=== PATIENT | female | born 1945 | race Caucasian/White ===

== ENCOUNTER → 2016-09-27 | Outpatient (CLI) | payer OTHER, MEDICARE ==
--- NOTE | 2016-09-27 18:04 | MA ---
Screening Digital Mammogram with Digital Breast Tomosynthesis Clinical Indications: Routine screening. Mother and daughter with history breast cancer. Technique: Standard cephalocaudal projections are obtained. Digital breast tomosynthesis was perform ed in the MLO projection with reconstruction at 1.0 mm slice thickness and composite MLO views recons tructed. This examination is processed by the CAD computer aided detection system. Comparison: July 31, 2015;. Breast density: B; There are scattered areas of fibroglandular density. Findings: CAD was reviewed. Within the upper outer right breast, there is a possible decreasing nodul e versus overlapping breast parenchymal tissue. No additional masses are seen within either breast. T here are no significant clusters of microcalcifications. The axilla are clear. Impression: Possible increasing nodule versus overlapping breast parenchymal tissue upper outer right breast. Recommendation: Ultrasound is recommended upper outer right breast for further characterization. Additional imaging evaluation on the right is needed. BI-RADS 0. [facility] will send a result letter to the patient. Negative mammography should not preclude additional workup of a clinically suspicious finding. The patient's information is entered into a reminder system with a target due date for her next mammo gram.
== END ==
LOC: FIMAGING 14:36
DX: Z12.31 Encounter for screening mammogram for malignant neoplasm of breast (principal); Z80.3 Family history of malignant neoplasm of breast
CPT/HCPCS: G0202

== ENCOUNTER → 2016-10-04 | Outpatient (CLI) | payer OTHER, MEDICARE ==
--- NOTE | 2016-10-04 15:08 | US ---
Right Breast Ultrasound History: Small nodule upper outer right breast comparison: Screening mammogram September 27, 2016 Technique: Ultrasound exam with a high frequency linear transducer. Findings: At the 10:00 radial, 5 cm from the nipple is a 3 mm simple cyst that correlates to size sha pe and position to the mammographic nodule. Impression: Benign simple cyst. Recommendation: Return to screening mammography of both breasts in 1 year. Results and recommendation were communicated to the patient at the time of the examination. BI-RADS 2. Benign.
== END ==
LOC: FIMAGING 13:50
PROVIDERS: ATTEND Internal Medicine
DX: N60.01 Solitary cyst of right breast (principal)

== ENCOUNTER → 2017-08-05 | Outpatient (CLI) | payer OTHER, MEDICARE | LOC: FIMAGING 13:17 | PROVIDERS: ATTEND Nurse Practitioner Adult Health | DX: Z13.820 Encounter for screening for osteoporosis (principal); M81.0 Age-related osteoporosis without current pathological fracture ==

== ENCOUNTER 2018-02-02 10:23 | Inpatient (IN) | payer OTHER, MEDICARE ==
[2018-02-02] MEDS ORDERED: METOCLOPRAMIDE 10 MG/2 ML VIAL IVP ONE (10:29)
[2018-02-02] MEDS ORDERED: METOCLOPRAMIDE 10 MG/2 ML VIAL ONE (10:30)
--- NOTE | 2018-02-02 10:30 | EDPHY ---
H & P Time Seen by Provider: 02/02/18 10:23 HPI/ROS: CHIEF COMPLAINT: Syncope HISTORY OF PRESENT ILLNESS: Patient found by bystanders unresponsive in the garden, she does not remember what happened. It appears that she probably fainted and has a laceration on the back of her head. Brought in by EMS with and the patient keeps asking what happened and where she is. Currently she has some pain in the back of her head otherwise no medical complaints. Denies chest pain or shortness of breath or weakness or numbness in extremities. REVIEW OF SYSTEMS: Eye: no change in vision ENT: no sore throat Cardiac: Denies chest pain Pulmonary: no cough or SOB Abdomen: no vomiting, diarrhea, abdominal pain Musculoskeletal: no back pain Skin: Occipital scalp laceration Neuro: Posterior headache Constitutional: no fever : no urinary symptoms A comprehensive 10 point review of systems is otherwise negative aside from elements mentioned in the history of present illness. PAST MEDICAL HISTORY: Osteoporosis Social history: here after arrival, PCP is Volodymyr Collazo General Appearance: Alert and conversant, cooperative. Eyes: No scleral icterus. Pupils reactive and extraocular motion intact. ENT, Mouth: Normal mucous membranes. Respiratory: Normal respiratory effort, breath sounds equal, lungs are clear to auscultation. Cardiovascular: Regular rate and rhythm. Gastrointestinal: Abdomen is soft and non tender. Neurological: Alert, face symmetric, normal motor and sensory in extremities. Patient is able to move all 4 extremities. She is appropriately responding to questions but seems a little bit more sleepy than normal. Skin: 2 cm occipital scalp laceration. Musculoskeletal: No midline spinal tenderness. Psychiatric: Not agitated. Emergency Department course/MDM: EKG, Reglan 10 mg IV, CT head and cervical spine, wound care. Labs to include troponin and electrolytes. 1044: Lillie for neurosurgery. Reviewed head CT with the on the computer system. He says that neurosurgery will come to see the patient in the ER. 1225: Dr. Whelan in the emergency department with Elvin Padilla. At this time the patient had a grand mal seizure, 1 mg IV Ativan and 1 g IV Keppra given. She was assisted with ventilation briefly but did not require intubation. Constitutional: Initial Vital Signs Heart Rate 52 L 02/02/18 10:23 Respiratory Rate 14 02/02/18 10:23 Blood Pressure 132/73 H 02/02/18 10:23 O2 Sat (%) 100 02/02/18 10:23 O2 Delivery Mode Nasal Cannula O2 (L/minute) 2 Allergies/Adverse Reactions: Sulfa (Sulfonamide Antibiotics) Allergy (Verified 02/02/18 10:46) Home Medications: Medication Instructions Recorded NK [No Known Home Meds] 02/02/18 Medical Decision Making - Diagnostics EKG Interpretation: 12-lead EKG interpreted by me; official reading is in trace master. My interpretation is sinus rhythm with left atrial abnormality, QT 44, nonspecific lateral T-wave flattening. Imaging Results: Imaging Impressions Cervical Spine CT 02/02/18 10:28 Impression: 1. No acute cervical spine fracture or soft tissue swelling. 2. Right occipital skull fracture. 3. If the patient has persistent pain or neurologic deficits, consider cervical spine MRI. Findings discussed with Emergency Department physician, Duarte Rosenberg, on 02/02/2018 at 10:[address] 02/02/18 10:28 Impression: 1. Nondisplaced right occipital fracture. 2. Thin subdural hematoma along the left frontal convexity, interhemispheric falx, and bilateral cerebellar tentorium. 3. Hemorrhagic contusions, right cerebellar hemisphere and left frontal lobe. 4. Minimal subarachnoid hemorrhage along the high left parietal convexity and in the basilar spaces. Findings discussed with Emergency Department physician, Duarte Rosenberg, on 02/02/2018 at 10:[address] shows right posterior subdural and traumatic subarachnoid and skull fracture reviewed with Liz at 10:55 a.m. Imaging: Discussed imaging studies w/ certified ophthalmic technician Radiologist Procedures: Procedure: Laceration repair. Verbal consent was obtained from the patient. The 2 cm laceration on the occipital scalp was anesthetized using 0.5% bupivacaine with epinephrine. The wound was irrigated with standard emergency department protocol, draped and explored. There were no deep structures involved. No foreign body found. The wound was repaired with waldemar and 2x 4-0 Prolene sutures, after consultation with Neurosurgery. The wound repair was simple. Excellent hemostasis was obtained. Wound care instructions were discussed and the patient was warned regarding scarring. The procedure was performed by myself. Differential Diagnosis: Differential diagnosis considered for syncope including but not limited to vasovagal syncope, arrhythmia, dehydration, and blood loss. Consult/Admit Bed Type: [place] [id number] Critical Care Time: Critical care time spent by me, Dr. Rosenberg, exclusively with the care of this patient was 45 minutes, exclusive of PA or STITCHER OPERATOR time and exclusive of separate procedures. The organ system at risk was neurologic and I ordered multiple diagnostics, anti epileptic medication, consultation with specialist, serial exams, supplemental oxygen to stabilize the patient and prevent worsening of the patient's condition. - Data Points Laboratory Results: Laboratory Results 02/02/18 10:20 02/02/18 10:20 02/02/18 02/02/18 10:20 10:20 WBC 5.97 10^3/uL 10^3/uL (3.80-9.50) RBC 4.40 10^6/uL 10^6/uL (4.18-5.33) Hgb 13.6 g/dL g/dL (12.6-16.3) Hct 40.0 % % (38.0-47.0) MCV 90.9 fL fL (81.5-99.8) MCH 30.9 pg pg (27.9-34.1) MCHC 34.0 g/dL g/dL (32.4-36.7) RDW 13.3 % % (11.5-15.2) Plt Count 209 10^3/uL 10^3/uL (150-400) MPV 10.9 fL fL (8.7-11.7) Neut % (Auto) 41.2 % % (39.3-74.2) Lymph % (Auto) 48.6 % H % (15.0-45.0) [place] % (Auto) 7.9 % % (4.5-13.0) Eos % (Auto) 1.0 % % (0.6-7.6) Baso % (Auto) 0.5 % % (0.3-1.7) Nucleat RBC Rel Count 0.0 % % (0.0-0.2) Absolute Neuts (auto) 2.46 10^3/uL 10^3/uL (1.70-6.50) Absolute Lymphs (auto) 2.90 10^3/uL 10^3/uL (1.00-3.00) Absolute Monos (auto) 0.47 10^3/uL 10^3/uL (0.30-0.80) Absolute Eos (auto) 0.06 10^3/uL 10^3/uL (0.03-0.40) Absolute Basos (auto) 0.03 10^3/uL 10^3/uL (0.02-0.10) Absolute Nucleated RBC 0.00 10^3/uL 10^3/uL (0-0.01) Immature Gran % 0.8 % % (0.0-1.1) Immature Gran # 0.05 10^3/uL 10^3/uL (0.00-0.10) Sodium 136 mEq/L mEq/L (135-145) Potassium 3.7 mEq/L mEq/L (3.3-5.0) Chloride 105 mEq/L mEq/L (97-110) Carbon Dioxide 19 mEq/l L mEq/l (22-31) Anion Gap 12 mEq/L mEq/L (8-16) BUN 12 mg/dL mg/dL (7-23) Creatinine 0.6 mg/dL mg/dL (0.6-1.0) Estimated GFR > 60 Glucose 118 mg/dL H mg/dL (70-100) Calcium 8.6 mg/dL mg/dL (8.5-10.4) Troponin I < 0.012 ng/mL ng/mL (0.000-0.034) Medications Given: Sodium Chloride (Ns) 1,000 mls @ 75 mls/hr IV CONT NASREEN Stop: 08/01/18 12:44 Last Admin: 02/02/18 14:26 Dose: 1,000 mls Discontinued Medications Diphtheria/Tetanus/Acell Pertussis (Boostrix) 0.5 ml IM .ONCE ONE Stop: 02/02/18 10:41 Last Admin: 02/02/18 11:12 Dose: 0.5 ml Levetiracetam (Keppra (Premix)) 100 mls @ 400 mls/hr IV EDNOW ONE Stop: 02/02/18 12:50 Last Admin: 02/02/18 12:48 Dose: 100 mls Lorazepam (Ativan Injection) 1 mg IVP EDNOW ONE Stop: 02/02/18 13:01 Last Admin: 02/02/18 12:40 Dose: 1 mg Metoclopramide HCl (Reglan Injection) 10 mg IVP EDNOW ONE Stop: 02/02/18 10:30 Last Admin: 02/02/18 10:32 Dose: 10 mg Departure - Departure Disposition: [facility]patient Acute Clinical Impression: Fracture of occipital bone of skull with loss of consciousness, Subdural hematoma, Grand mal seizure Traumatic subarachnoid hemorrhage Qualifiers: Encounter type: initial encounter Loss of consciousness presence/duration: with LOC of 31 min - 59 min Qualified Code(s): S06.6X2A - Traumatic subarachnoid hemorrhage with loss of consciousness of 31 minutes to 59 minutes, initial encounter Syncope Qualifiers: Syncope type: unspecified Qualified Code(s): R55 - Syncope and collapse Condition: Critical
[2018-02-02 10:34] LABS: PLATELET COUNT 209 10^3/uL (150-400)
--- NOTE | 2018-02-02 10:37 | CPEKG ---
Heart Rate: 54 RR Interval: 1111 P-R Interval: 160 QRSD Interval: 102 QT Interval: 484 QTC Interval: 459 P [place]: 69 QRS [place]: 79 T Wave [place]: 67 EKG Severity - ABNORMAL ECG - EKG Impression: SINUS RHYTHM EKG Impression: PROBABLE LEFT ATRIAL ABNORMALITY EKG Impression: NONSPECIFIC T ABNORMALITIES, ANT-LAT LEADS Electronically Signed By: Duarte Rosenberg 02-Feb-2018 10:38:03
[2018-02-02] MEDS ORDERED: TDAP ADULT 0.5 ML INJ (BOOSTRIX) IM ONE (10:40)
[2018-02-02] MEDS ORDERED: LORazepam 2 MG/ML INJ ONE (12:34)
[2018-02-02] MEDS ORDERED: levETIRAcetam 1000MG/NACL 100 ML IV ONE (12:36)
[2018-02-02] MEDS ORDERED: LORazepam 2 MG/ML INJ IVP ONE (13:00)
--- NOTE | 2018-02-02 13:03 | GHP ---
Seen and examined on day of consult in ER elvin CAVAZOS. Agree with below [f rep st] HISTORY AND PHYSICAL DATE OF ADMISSION: 02/02/2018 CHIEF COMPLAINT: Headache after a fall. HISTORY OF PRESENT ILLNESS: The patient is a 72-year-old female who, according to her , was doing some gardening in her outside front yard. She was working on an elevated garden bed that is approximately 2 or 3 feet above their sloped driveway. She was found lying on the driveway by a person walking by. 911 was activated, and she was transported by ambulance to the emergency department. There, a head CT showed a left-sided subdural hematoma and a right tentorial subdural hematoma. Neurosurgical consultation was requested. Since her admission, the nurses feel that she has been getting worse. She was originally complaining of a headache. She is currently nonverbal. She has not had any nausea or vomiting. PAST MEDICAL HISTORY: Osteoporosis. CURRENT MEDICATIONS: None. ALLERGIES: Sulfa. FAMILY HISTORY: Patient has no family history of head trauma. SOCIAL HISTORY: The patient is and has grown children. Her primary care physician is Volodymyr Collazo. She does drink alcohol socially, but denies smoking or drug use. REVIEW OF SYSTEMS: Negative. PHYSICAL EXAM: GENERAL: Patient is a 72-year-old female, sitting upright in bed. She is wearing a hard collar. EXTREMITIES: [place], warm and dry. NEUROLOGICAL: Patient is awake, but nonverbal. Pupils are equal, round, reactive to light. Extraocular motions appear intact. There is no evidence of facial droop. The patient moves all extremities x4 to command, but she is nonverbal. Deep tendon reflexes are 1/4 throughout. DIAGNOSTIC STUDIES: The head CT without contrast shows a small left-sided subdural hematoma with a right tentorial subdural hematoma. There is a right occipital linear skull fracture. There is no evidence of hydrocephalus. IMPRESSION: This is a 72-year-old female with a presumed syncopal event and a traumatic left-sided subdural hematoma and a right-sided tentorial subdural hematoma. She is neurologically stable, but currently nonverbal. PLAN: All the above discussed in detail with the patient, her and Dr. Lisa Whelan, who evaluated the patient in the Emergency Department, room 6, at 12:25 p.m. At this point in time, her subdural does appear small and likely nonoperative. We will obtain a repeat head CT without contrast to follow progression of the subdural hematoma. We will start her on Keppra 750 mg p.o. b.i.d. She will be admitted to the ICU with q.1 hour neuro checks and have a medicine consultation for workup of her syncopal event. Please call with any neurological changes. Addendum: While dictating this report, the patient did have a witnessed tonic- clonic seizure in the emergency department. She is currently being treated with IV Ativan and being loaded with IV Keppra. We will obtain a repeat head CT without contrast once the seizure is stabilized. /[id number]/MODL MTDD
[2018-02-02] MEDS: NS 1,000 ML IV SCH (14:26)
[2018-02-02] MEDS ORDERED: ONDANSETRON 4 MG/2 ML VIAL IVP PRN (14:37)
--- NOTE | 2018-02-02 14:48 | SOAPPROG ---
SOAP Progress Note Assessment/Plan: Assessment: 72 yo F with left sided SDH, right tentorial subdural hematoma and cerebellar hematoma Plan: repeat CT at around 1pm shows slight enlargement of left sided subdural hematoma and cerebellar hemorrhage will keep in ICU with Q1 hour neuro checks repeat head CT at 6 pm continue keppra at 750 mg po/iv bid appreciate Medicine help with medical issues. PT/OT/ST keep NPO for now hard collar until mentation improves please call with neuro changes patient seen by Dr Whelan in ICU again at 15:48 pm 02/02/18 14:45 Subjective: chart reviewed Objective: Vital Signs Temp Pulse Resp BP Pulse Ox 35.8 C L 70 19 115/50 L 99 02/02/18 13:57 02/02/18 13:57 02/02/18 13:57 02/02/18 13:57 02/02/18 13:57 02/01/18 02/02/18 02/03/18 05:59 05:59 05:59 Output Total 700 Balance -700 somnolent opens eyes to voice Pupils: 4 mm ou reative no facial droop JAVID x 4, following commnds + light touch ICD10 Worksheet Patient Problems: Problems Problem Status Onset Fracture of occipital bone of skull with loss of consciousness Acute Grand mal seizure Acute Subdural hematoma Acute Syncope Acute Traumatic subarachnoid hemorrhage Acute
--- NOTE | 2018-02-02 15:19 | GCON ---
[f rep st] CONSULTATION INTERNAL MEDICINE CONSULTATION REFERRING PHYSICIAN: Kyle Moreira MD REASON FOR CONSULTATION: Medical opinion regarding possible syncope. HISTORY: Patient is a 72-year-old female who was gardening in her yard this morning, they have an el evated bed and she fell 6 to [address] A person walking by their home who was listen ing to music heard the fall and knocked on the front door alerting her to what had occurred. They immediately called 911. The patient is unable to converse regarding any preceding symptoms she may have felt. She was diagnosed with bilateral subdural bleed as well as an intraparenchymal cereb ellar hemorrhage. She had a tonoclonic seizure in the ER. Mental status was better prior to the sei zure. The patient is very healthy at baseline, only has a little osteoporosis. She had just gotten back fr om her exercise class when the event occurred. She does occasionally have feelings of feeling faint and has baseline poor balance which the family thinks may have contributed although she has no histor y of cardiac issues. PAST MEDICAL HISTORY: Osteoporosis. MEDICATIONS: Please see computer for full detailed list. ALLERGIES: Sulfa. SOCIAL HISTORY: No smoking. Social alcohol. Lives with her . REVIEW OF SYSTEMS: Complete review of systems obtained. Review of systems negative regarding consti tutional, HEENT, GI, pulmonary, vascular, , hematology, muscular, endocrine, psych except for posit nate and negatives as noted in HPI. All this is obtained through family as patient is not currently able to answer. FAMILY HISTORY: Reviewed noncontributory to presenting complaint. PHYSICAL EXAMINATION: GENERAL: Well-developed, well-nourished female, in no acute distress. She is somewhat responsive following minimal commands, agitated when trying to get up out of bed. VITAL SI GNS: Temperature is 35.8, pulse 70, blood pressure 115/57, 99% on 2 L. EYES: Normal conjunctivae. Pupils equal, round, react to light. ENT: Normal ears, nose. Hearing appears intact. Oropharynx is moist. NECK: Trachea midline. No thyromegaly. CHEST: Normal respiratory effort. LUNGS: Clear to auscultation bilaterally. CARDIOVASCULAR: Regular rate and rhythm. No murmur. No lower extrem ity edema. ABDOMEN: Soft, nontender. No hepatosplenomegaly. SKIN: Warm, dry, intact without rash . She has periorbital ecchymosis. She has a wound on the back of her scalp that has been stapled an d sutured in the emergency room with some mild ongoing bleeding. MUSCULOSKELETAL: No cyanosis or cl ubbing. She does follow command, squeeze my hands bilaterally. She is moving all extremities. Foll ows some simple commands although does not open her eyes or converse, currently nonverbal. LABORATORY DATA: White count 5.97, hematocrit 40.0, platelets 209. Sodium 136, potassium 3.7, chlor [place] 105, bicarb 19, BUN 12, creatinine 0.6, glucose 118, troponins negative. EKG viewed by me, my per fern interpretation is T-wave inversions in V1, V2. Head CT repeat and is now showing a slightly wor se right cerebellar hemorrhage with some mild edema and mass effect. Left frontal hemorrhagic conver flakita with some [id number] shift, right occipital fracture. This case was discussed with Elvin Burnette on. They are aware of the 2nd CT results and plan is to repeat again at 6 p.m. ASSESSMENT/PLAN: 1. Bilateral subdural hematomas with intraparenchymal hemorrhage. Repeat CT scan reviewed personall y with neurosurgery, Elvin Padilla. There was some slight worsening. Plan for repeat head CT at 6 p.m . 2. Seizure. Continue IV Keppra. 3. Encephalopathy. She likely has an element of postictal state but she is coming out of it. 4. Possible syncope versus loss of balance, mechanical fall. We will watch her on telemetry. My barber spicion for cardiac is relatively low. We could consider an echocardiogram. I will check a TSH. Sh chinyere may have been a little dehydrated after exercise class. 5. C-spine. Still in a collar. CT is negative. She can likely be cleared when her mental status i mproves. 6. EKG changes. She has T-wave inversions in V1 and V2 which may be due to elevated intracranial pr essure from her head bleed. I think ischemia is less likely but we will follow with another troponin . 7. Dysphagia. She will remain n.p.o. until after swallow evaluation. 8. Head laceration. 2 cm laceration on the occipital scalp was irrigated and explored in the emerge ncy room. She received waldemar and Prolene sutures. Will need to clarify timing of staple and sutur e removal with the emergency room. Thank you very much for this consultation. Internal Medicine will continue to follow throughout her hospitalization. /[id number]/MODL
--- NOTE | 2018-02-02 15:28 | ASMTCMCOM ---
CM Note CM Note Notes: Patient admitted after falling and suffering bilateral subdural hematomas with intraparenchymal hemorrhage. Most recent CT shows slight worsening. She had a witnessed tonic clonic seizure in the ED. She is to wear a C-collar until her mental status improves; q 1hr neuro checks have been ordered. Patient lives with her and is normally independent. Therapies have been ordered and will assess her when appropriate. Case Management will follow. Date Signed: 02/02/2018 03:28 PM Electronically Signed By:Betsey Ruiz RN
--- NOTE | 2018-02-02 18:19 | PDMN ---
Medical Necessity Medical necessity: est los>2mn for L SDH, w/R tentorial SDH, r/t unwitnessed fall, r/o syncope; pt became non-verbal in ED, followed by witnessed tonic- clonic sz, subsequent CT w/slight enlargement of L SDH and cerebellar hematoma ; admit to ICU for hourly neuro checks, IV Keppa, repeat CT, IM consult, NPO, hard collar; per order and H&P 02/02/18
--- NOTE | 2018-02-02 20:54 | SOAPPROG ---
SOAP Progress Note Assessment/Plan: Assessment: 72 yo F with left sided SDH, right tentorial subdural hematoma and cerebellar hematoma Plan: repeat CT at around 8pm shows slight enlargement of left sided subdural hematoma , blossoming of frontal contusions and continued enlargement of cerebellar hemorrhage. Spoke to RN and clinical assessment has improved with improved speech. Patient is still following commands. Since clinical presentation has improved we will continue to monitor her closely with a repeat head CT in am. will keep in ICU with Q1 hour neuro checks repeat head CT at 6 am 02/03 continue keppra at 750 mg po/iv bid will add 3% to get NA > 140. appreciate Medicine help with medical issues. PT/OT/ST keep NPO for now hard collar until mentation improves please call with neuro changes Discussed with Dr Moreira 02/02/18 14:45 02/02/18 20:50 02/02/18 20:53 Subjective: chart reviewed. Spoke to RN about clinical assessment Objective: Vital Signs Temp Pulse Resp BP Pulse Ox 37.2 C 88 20 126/50 H 100 02/02/18 18:00 02/02/18 18:00 02/02/18 18:00 02/02/18 18:00 02/02/18 18:00 02/01/18 02/02/18 02/03/18 05:59 05:59 05:59 Intake Total 306 Output Total 1050 Balance -744 per RN awake, alert answers with 1-2 words PERRL, no facial droop follows commands ICD10 Worksheet Patient Problems: Problems Problem Status Onset Fracture of occipital bone of skull with loss of consciousness Acute Grand mal seizure Acute Subdural hematoma Acute Syncope Acute Traumatic subarachnoid hemorrhage Acute
[2018-02-02] MEDS: ACETAMINOPHEN 650 MG SUPP PR PRN (20:57)
[2018-02-02] MEDS: levETIRAcetam 750 MG in NS (SYRINGE) 50 ML IV SCH (20:57)
[2018-02-02] MEDS: SODIUM Cl 3% 500 ML IV SCH (21:09)
[2018-02-03] MEDS: ACETAMINOPHEN 650 MG SUPP PR PRN ×4 (02:27→21:04)
[2018-02-03 06:35] LABS: PLATELET COUNT 121 10^3/uL (150-400)
[2018-02-03] MEDS ORDERED: ALTEPLASE 2 MG VIAL IVP PRN (06:50)
--- NOTE | 2018-02-03 07:14 | SOAPPROG ---
SOAP Progress Note Assessment/Plan: Assessment: 72 yo F with left sided SDH, right tentorial subdural hematoma and cerebellar hematoma Plan: neuro: mentation improved since admission yesterday repeat CT this am shows continued slight enlargement of left sided subdural hematoma, blossoming of frontal contusions and continued enlargement of cerebellar hemorrhage. Mild enlargement of ventricles. Patient has improved with improved speech. Patient is still following commands. Since clinical presentation has improved we will continue to monitor her closely with a repeat head CT this evening. If she declines then we will place ventriculostomy. will keep in ICU with Q1 hour neuro checks repeat head CT tonight continue keppra at 750 mg po/iv bid will add 3% to get NA > 140, PICC line ordered appreciate Medicine help with medical issues. PT/OT/ST keep NPO for now hard collar until mentation improves please call with neuro changes Discussed with Dr Whelan 02/02/18 14:45 02/02/18 20:50 02/02/18 20:53 02/03/18 07:11 Subjective: continued headaches, no N/V. Objective: Vital Signs Temp Pulse Resp BP Pulse Ox 37.7 C 76 20 130/61 H 93 02/03/18 06:00 02/03/18 06:00 02/03/18 06:00 02/03/18 06:00 02/03/18 06:00 Laboratory Results 02/03/18 05:25 02/03/18 05:25 02/02/18 02/03/18 02/04/18 05:59 05:59 05:59 Intake Total 1291 Output Total 1600 Balance -309 opens eyes to voice, Pupils: 4 mm ou, no facial droop oriented to year, confused to location JAVID x 4 + light touch ICD10 Worksheet Patient Problems: Problems Problem Status Onset Fracture of occipital bone of skull with loss of consciousness Acute Grand mal seizure Acute Subdural hematoma Acute Syncope Acute Traumatic subarachnoid hemorrhage Acute
[2018-02-03] MEDS: levETIRAcetam 750 MG in NS (SYRINGE) 50 ML IV SCH ×2 (08:52→21:04)
[2018-02-03] MEDS ORDERED: LIDOCAINE 1% 300 MG/30 ML SDV ONE (09:33)
--- NOTE | 2018-02-03 11:56 | PDRADPN ---
Radiology Procedure Note Date of Procedure: 02/03/18 Radiologist: Ricardo Kwok Anesthesia: Local (Specify) Pre-op Diagnosis: icu meds needed Post-op Diagnosis: same Indication: access Procedure: RUE PICC Finding(s): DL basilic 40cm tip at cavoatrial junction Inf/Abcess present in the surg proc area at time of surgery?: No Complications: none
--- NOTE | 2018-02-03 16:05 | GCON ---
[f rep st] CONSULTATION CRITICAL CARE CONSULTATION DATE OF CONSULTATION: 02/03/2018 HISTORY OF PRESENT ILLNESS: The patient is a 72-year-old female who apparently fell about 6-feet fro m a raised garden bed. A neighbor heard the sound and alerted the . She was brought to the ospital and she had bilateral subdural hematomas as well as intraparenchymal cerebral hemorrhaging. In the emergency department, she did have a witnessed seizure activity and some confusion in a postic riya state, was treated with Keppra. She was evaluated by Neurosurgery as well as the Trauma Service and was deemed to be nonoperable. She was then transferred to the intensive care unit for close neur ologic followup. There was a minor head laceration. She did also have significant bilateral eye ecc hymoses and was otherwise stable overnight. She was relatively stable, though was quite confused thi s morning. Her head CT showed increasing bleeding areas, though conservative management with close h ead CTs was recommended. REVIEW OF SYSTEMS: Otherwise, negative. PAST MEDICAL HISTORY: Includes only osteoporosis. MEDICATIONS: In [employer]. ALLERGIES: SULFA. SOCIAL HISTORY: She is a nonsmoker. No alcohol or IV drug use. FAMILY HISTORY: Noncontributory. PHYSICAL EXAM: VITAL SIGNS: Today, she was afebrile. Her blood pressure was 123/61, heart rate of 67, respirations 17, oxygen saturation 93% on room air. GENERAL: She was quite restless at my evalu ation, and required her to hold her hands to keep her from pulling off her hard cervical spin e collar. She was complaining about its discomfort as well as her SCDs. She would answer questions appropriately, but had difficulty sitting still. Neurosurgery was notified of this and ordered morph ine. HEENT: Pupils are otherwise equally round and reactive to light, nonicteric and noninjected. As I said, she had bilateral periophthalmic ecchymoses in a raccoon eyes fashion. Cranial nerves wer e otherwise intact. Mucous membranes moist without erythema or exudate. NECK: Neck was in a hard c ollar. CHEST: Clear to auscultation bilaterally without wheezes, rubs, rales. HEART: Regular rate and rhythm without murmurs, rubs, gallops. ABDOMEN: Soft, nontender, nondistended without hepatosp lenomegaly. Extremities show no clubbing, cyanosis, or edema. NEUROLOGICAL EXAM: Appeared to be no nfocal. As I said, cranial nerves appeared to be intact. She was moving all extremities with normal strength. OBJECTIVE DATA: Includes a head CT as described above. Her white count today was 10.7, hematocrit o f 33, platelets of 121. Basic metabolic panel was unremarkable. Troponins were negative. TSH was n ormal. ASSESSMENT AND PLAN: 1. Subdural hematoma with intracranial bleeding managed, of course, by Neurosurgery. Plans are to continue close observation with q.1 hour neuro checks and do another head CT this afternoon though sh e may require operative intervention ultimately. Typical targets of higher sodium and blood pressure control, of course, apply as well. 2. Seizure related to #1. She has been treated with Keppra. There has been no further witnessed se izure disorder. 3. Mental status change. This is also likely due to #1, may be exacerbated by increasing narcotics. An alternative might be consider Haldol or Zyprexa for delirium. /[id number]/MODL
[2018-02-03] MEDS: SODIUM Cl 3% 500 ML IV SCH ×2 (16:44→17:09)
[2018-02-03] MEDS: NS 1,000 ML IV SCH (17:35)
--- NOTE | 2018-02-03 18:38 | HOSPPROG ---
Hospitalist Progress Note Assessment/Plan: * SDH/IP hemorrhage - traumatic -now stable by CT * Cerebral edema -3% saline per neurosurgery * Occipital bone fracture * Head lac -sutures/waldemar placed in ER * Syncope vs mechanical fall -consider ECHO - relatively low yield * Seizure - Keppra * Encephalopathy -mental status slowly improving * Dysphagia -NPO until mental status improves * C-spine -continue collar until mental status improves * EKG changes -suspect TWI due to increased intra-cranial pressure -troponin negative Subjective: No new complaints. Wakes up and answers simple questions. Follows commands Objective: Vital Signs Temp Pulse Resp BP Pulse Ox 37.5 C 58 L 16 137/58 H 100 02/03/18 17:00 02/03/18 17:00 02/03/18 17:00 02/03/18 17:00 02/03/18 17:00 Laboratory Results 02/03/18 05:25 02/02/18 02/03/18 02/04/18 05:59 05:59 05:59 Intake Total 1291 1175 Output Total 1600 500 Balance -309 675 d/w Dr Perez ICU rounds regarding plan of care Head CT - stable bleed - Physical Exam Constitutional: no apparent distress, appears nourished, not in pain Cardiovascular: regular rate and rhythym, no murmur, rub, or gallop Respiratory: no respiratory distress, no rales or rhonchi, clear to auscultation Gastrointestinal: normoactive bowel sounds, soft, non-tender abdomen, no palpable masses Skin: no rashes or abrasions, no fluctuance, no induration Psychiatric: encephalopathic, flat affect, poor insight, poor judgement, poor memory, No interacting appropriately, No agitated ICD10 Worksheet Patient Problems: Problems Problem Status Onset Fracture of occipital bone of skull with loss of consciousness Acute Grand mal seizure Acute Subdural hematoma Acute Syncope Acute Traumatic subarachnoid hemorrhage Acute
[2018-02-03] MEDS: FAMOTIDINE 20 MG/NACL 50 ML IV SCH (21:05)
[2018-02-03] MEDS ORDERED: LORazepam 2 MG/ML INJ IV ONE (23:30)
[2018-02-04] MEDS ORDERED: ceFAZolin 2 GM/SWFI 2 GM/20 ML SYR IVP ONE (00:30)
[2018-02-04 00:34] LABS: INR 1.17 (0.83-1.16); PROTIME(PATIENT) 15.1 SEC (12.0-15.0)
[2018-02-04] MEDS ORDERED: THROMBIN (BOVINE) 20,000 UNIT SPRAY TP ONE (00:41)
[2018-02-04] MEDS ORDERED: BUPIVACAINE 0.25% 30 ML SDV ONE (00:41)
[2018-02-04 00:42] LABS: PLATELET COUNT 96 10^3/uL (150-400)
[2018-02-04] MEDS ORDERED: EPINEPHrine 1 MG/ML INJ ONE (00:42)
[2018-02-04] MEDS ORDERED: GENTAMICIN SULFATE 80 MG/2 ML VIAL ONE (00:42)
[2018-02-04] MEDS ORDERED: AVITENE POWDER 1 GM JAR TP ONE ×2 (00:42→01:04)
[2018-02-04] MEDS ORDERED: BACITRACIN 50,000 UNITS/10 ML SYR IRR ONE (00:43)
[2018-02-04] MEDS ORDERED: fentaNYL 100 MCG/2 ML INJ ONE ×2 (00:46→03:04)
[2018-02-04] MEDS ORDERED: REMIFENTANIL HCL 1 MG VIAL ONE (00:46)
[2018-02-04] MEDS ORDERED: PROPOFOL/EMULSION 500 MG/50 ML BOTTLE IV ONE (00:47)
[2018-02-04] MEDS ORDERED: HYDROGEN PEROXIDE 473 ML BOTTLE TP ONE (01:04)
[2018-02-04] MEDS ORDERED: THROMBIN (BOVINE) 20,000 UNIT VIAL TP ONE (01:16)
[2018-02-04] MEDS ORDERED: THROMBIN (BOVINE) 5,000 UNIT VIAL TP ONE (01:16)
[2018-02-04] MEDS ORDERED: MANNITOL 20% 100 GM/500 ML BAG IV ONE (01:16)
--- NOTE | 2018-02-04 01:54 | PDANEPAE ---
ANE History of Present Illness 72 yo for emergent crani ANE Past Medical History - Cardiovascular History Hx Hypertension: No Hx Arrhythmias: No Hx Chest Pain: No Hx Coronary Artery / Peripheral Vascular Disease: No Hx CHF / Valvular Disease: No Hx Palpitations: No - Pulmonary History Hx COPD: No Hx Oxygen in Use at Home: No Hx Sleep Apnea: No - Endocrine History Hx Diabetes: No - Chronic Pain History Chronic Pain: No ANE Review of Systems Review of Systems: - Exercise capacity METS (RN): 4 METS ANE Patient History - Allergies Allergies/Adverse Reactions: Sulfa (Sulfonamide Antibiotics) Allergy (Verified 02/02/18 10:46) - Home Medications Home medications: home medication list seen and reviewed Home Medications: NK [No Known Home Meds] 02/02/18 [Last Taken Unknown] - NPO status NPO Status: no food or drink >8 hours - Anes Hx Anes Hx: no prior problems - Smoking Hx Smoking Status: Never smoked ANE Labs/Vital Signs - Labs Result Diagrams: 02/04/18 00:15 02/03/18 23:45 - Vital Signs Blood Pressure: 163/69 Heart Rate: 57 Respiratory Rate: 14 O2 Sat (%): 100 Height: 5 ft 7 in Weight: 58.967 kg ANE Physical Exam - Airway Neck exam: C-collar in place Mallampati Score: Class 2 Mouth exam: normal dental/mouth exam - Pulmonary Pulmonary: no respiratory distress - Cardiovascular Cardiovascular: regular rate and rhythym ANE Anesthesia Plan Anesthesia Plan: general endotracheal anesthesia Lines/Monitors: arterial line Urgent/Emergent Case: Sandra dyer completed preop but documented later for safe timely pt care
[2018-02-04] MEDS ORDERED: THROMBIN(HUM PLAS)/FIBRINOG/CA 5 ML VIAL TP ONE (01:55)
[2018-02-04] MEDS ORDERED: SURGIFLO MATRIX KIT WITH THROMBIN 8 ML TP ONE (01:56)
[2018-02-04] MEDS ORDERED: BACITRACIN ZINC 14.2 GM OINTTUBE TP ONE (02:39)
[2018-02-04] MEDS ORDERED: LACTULOSE 20 GM/30 ML UDCUP PO PRN (02:45)
[2018-02-04] MEDS ORDERED: POLYETHYLENE GLYCOL 3350 17 GM PKT PO PRN (02:45)
[2018-02-04] MEDS ORDERED: HYDROCODONE/APAP 10/325 TAB PO PRN (02:45)
[2018-02-04] MEDS ORDERED: BISACODYL 10 MG SUPP PR PRN (02:45)
[2018-02-04] MEDS ORDERED: MAGNESIUM HYDROXIDE 30 ML UDCUP PO PRN (02:45)
--- NOTE | 2018-02-04 02:57 | SOAPPROG ---
SOAP Progress Note Assessment/Plan: Assessment: 72 yo F with left sided SDH, right tentorial subdural hematoma and cerebellar hematoma, sp EVD placement and suboccipital craniotomy for evacuation of hemorrhage. Plan: neuro: stable keep ventric open to drain at 5 mmhg cardine to keep SBP < 130 mmhg will keep in ICU with Q1 hour neuro checks CT this morning continue keppra at 750 mg po/iv bid will add 3% to get NA > 140, PICC line placed appreciate Medicine help with medical issues. PT/OT/ST hard collar until mentation improves please call with neuro changes seen by Dr Bryant 02/02/18 14:45 02/02/18 20:50 02/02/18 20:53 02/03/18 07:11 02/04/18 02:55 Subjective: patient in ICU Objective: Vital Signs Temp Pulse Resp BP Pulse Ox 37.7 C 57 L 14 163/69 H 100 02/03/18 22:00 02/04/18 01:54 02/04/18 01:54 02/04/18 01:54 02/04/18 01:54 Laboratory Results 02/04/18 00:15 02/03/18 23:45 02/02/18 02/03/18 02/04/18 05:59 05:59 05:59 Intake Total 1291 1175 Output Total 1600 500 Balance -309 675 PT 15.1 SEC (12.0-15.0) H 02/04/18 00:15 INR 1.17 (0.83-1.16) H 02/04/18 00:15 intubated/sedated Pupils: 2 mm ou ICP: 7 mmhg ICD10 Worksheet Patient Problems: Problems Problem Status Onset Fracture of occipital bone of skull with loss of consciousness Acute Grand mal seizure Acute Subdural hematoma Acute Syncope Acute Traumatic subarachnoid hemorrhage Acute
[2018-02-04] MEDS ORDERED: PROPOFOL/EMULSION 1,000 MG/100 ML BOTTLE IV ONE (03:02)
[2018-02-04] MEDS: niCARdipine/NACL 200 ML IV PRN ×5 (03:30→21:13)
[2018-02-04] MEDS ORDERED: PROPOFOL/EMULSION 100 ML IV SCH (03:30)
--- NOTE | 2018-02-04 03:32 | GOP ---
[f rep st] OPERATIVE REPORT DATE OF OPERATION: 02/04/2018 SURGEON: Jer Bryant MD HYPOID GEAR GENERATOR: Elvin Padilla PA-C. ANESTHESIA: General. PREOPERATIVE DIAGNOSIS: 1. Occipital skull fracture with cerebellar hemorrhage and progressive mass effect. 2. Subdural hematoma. 3. Multiple intraparenchymal contusions status post fall. 4. Worsening altered mental status with increasing intracranial pressure. 5. Hydrocephalus. POSTOPERATIVE DIAGNOSIS: 1. Occipital skull fracture with cerebellar hemorrhage and progressive mass effect. 2. Subdural hematoma. 3. Multiple intraparenchymal contusions status post fall. 4. Worsening altered mental status with increasing intracranial pressure. 5. Hydrocephalus. PROCEDURE PERFORMED: 1. Right frontal ventriculostomy catheter placement. 2. Suboccipital craniectomy, with right cerebellar hematoma evacuation and relief of elevated intracranial pressure with partial cerebellar lobectomy. 3. Use of intraoperative ultrasound. FINDINGS: cerebellar hematoma with mass effect; cerebellar contusions SPECIMENS: Right cerebellar hemorrhage was sent to Pathology for permanent analysis. ESTIMATED BLOOD LOSS: 50 mL. INDICATIONS: The patient is an otherwise very healthy 72-year-old woman who was in an exercise class when she fell. She presented to the emergency department and had evidence of multiple intercerebral contusions as well as a subdural hematoma and a cerebellar hemorrhage with an associated occipital skull fracture. The patient was monitored closely in the intensive unit, but was noted to have progressive altered mental status. Imaging demonstrated some development of hydrocephalus and worsening edema with effacement of the 4th ventricle and some brainstem compression. After discussion of the risks, benefits, and treatment alternatives with the patient's and her daughter , it was decided to proceed forth with surgical intervention as described above. This was considered life saving measure given her slow decline. DESCRIPTION OF PROCEDURE: Patient was brought to the operating theater and underwent general endotracheal anesthesia without complications. This was all completed with cervical spine precautions. Venodyne NAKUL hose were already in place. The appropriate lines were placed by Anesthesia. A time-out was completed per protocol. The patient received antibiotics within 1 hour of incision. An incision was marked out just posterior to the nasion at approximately 10.5 cm and 3.5 cm to the right of the midline. This area was prepped and draped in the usual sterile surgical fashion. The incision was infiltrated with Marcaine with epinephrine and a vertical incision then made with the scalpel blade down to the sulcal. We used the supervisor labor gang drill and manually created a small hole through the bone through to the level of the dura. A ventriculostomy catheter was then placed to approximately 7 cm with spontaneous egress of CSF under moderate pressure. The catheter was then tunneled out laterally and secured sterilely to a ventriculostomy catheter drainage bag. The system was then secured in place and the wound then closed with multiple nylon sutures in a running manner. At this point, the patient was placed in a Springer headholder device and flipped prone onto the standard table at which point she was placed in a slight flexed position. She was affixed to the table and all bony prominences inspected and padded. The occipital cervical area was prepped and draped in the usual sterile surgical fashion. Another time-out was completed per protocol. The patient had already received antibiotics within 1 hour of incision. The patient also received mannitol and was hyperventilated at this portion of the surgery and a ventriculostomy catheter maintained open at 10 mmHg. At this point the occipital cervical incision was infiltrated with Marcaine with epinephrine. She had evidence of a large subcutaneous hematoma distorting her normal anatomy. The incision was taken down with the scalpel blade. Then using monopolar, the incision was taken down the midline through the avascular nuchal plane over to the ring of C1, to identify the occiput and posterior fossa. She had evidence of a crossing fracture from the midline to the right side over the right cerebellar hemisphere. We stripped the tissues from the foramen magnum. Using the supervisor labor gang, we then measured an opening approximately 3 x 3 cm eccentric to the right side. A supervisor labor gang drill was utilized to create a right eccentric suboccipital craniectomy approximately 3 x 3 cm in maximal size. The bone was then passed off the field. She had evidence of a dural tear with hematoma just underlying the fracture line. We brought the ultrasound into the field to confirm the location of the hematoma. We then used gentle suction, irrigation and pulled out several large well- organized clots from this region. There was evidence of contused cerebellum which I also gently suctioned until we felt that everything was well decompressed. The deeper hematoma was not resected for fear of causing further vascular injury and potentially injuring normal cerebellar tissue. The tissues very lax at the conclusion and closure. There was a small amount of bleeding evident at the right-sided fracture line. We obtained hemostasis as best we could with the thrombin Gelfoam as well as hydrogen peroxide and Avitene powder. I did not opt to place the bone back in place to allow cerebellar swelling. I placed a small layer of DuraGen over the exposed cerebellar hemisphere. A drain was left in the subfascial space and the wound then closed in multiple layers using Vicryl sutures for deep layers and a running nylon stitch for the skin. The patient's wounds were dressed sterilely. She was flipped supine onto the transfer cart and taken out of the [place] head bookkeeper device. She was still asleep at the time of this dictation but there were no complications. Please note that the cerebellar clot was then sent to Pathology for permanent analysis to ensure there was no underlying etiology for her fall. COMPLICATIONS: None. /[id number]/MODL MTDD
[2018-02-04] MEDS: NS W/ 20 KCl/L 1,000 ML IV SCH (04:40)
[2018-02-04 07:00] LABS: PLATELET COUNT 147 10^3/uL (150-400)
[2018-02-04] MEDS: FAMOTIDINE 20 MG/NACL 50 ML IV SCH ×2 (08:20→19:52)
[2018-02-04] MEDS: levETIRAcetam 750 MG in NS (SYRINGE) 50 ML IV SCH ×2 (08:21→19:52)
[2018-02-04] MEDS ORDERED: POTASSIUM Cl (KCl) 20 MEQ/50 ML BAG IV ONE (08:22)
[2018-02-04] MEDS: POTASSIUM Cl (KCl) 50 ML IV SCH ×2 (08:30→09:58)
[2018-02-04] MEDS ORDERED: PROTOCOL POTASSIUM 1 DOSE MISC PRN (08:44)
[2018-02-04] MEDS: SENNOSIDES/DOCUSATE SODIUM TAB PO SCH ×2 (09:57→19:28)
[2018-02-04] MEDS: FAMOTIDINE 20 MG TAB PO SCH ×2 (09:57→19:28)
--- NOTE | 2018-02-04 10:04 | SOAPPROG ---
SOAP Progress Note Assessment/Plan: Assessment: 72 yo F with left sided SDH, right tentorial subdural hematoma and cerebellar hematoma, POD #0 EVD placement and suboccipital craniotomy for evacuation of hemorrhage. Plan: neuro: stable and improved this am. Head CT with decompression of cerebellum and improved and hydrocephalus. EVD in good position. keep ventric open to drain at 5 mmhg cardine to keep SBP < 130 mmhg will keep in ICU with Q1 hour neuro checks continue keppra at 750 mg po/iv bid will add 3% to get NA > 140, PICC line placed appreciate Medicine help with medical issues. PT/OT/ST hard collar until mentation improves please call with neuro changes seen by Dr Whelan and discussed with Dr Bryant. 02/02/18 14:45 02/02/18 20:50 02/02/18 20:53 02/03/18 07:11 02/04/18 02:55 02/04/18 10:01 Subjective: chart reviewed. Objective: Vital Signs Temp Pulse Resp BP Pulse Ox 36.1 C 80 10 L 120/57 L 100 02/04/18 07:00 02/04/18 09:52 02/04/18 09:52 02/04/18 09:52 02/04/18 09:52 Laboratory Results 02/04/18 06:15 02/04/18 06:15 02/03/18 02/04/18 02/05/18 05:59 05:59 05:59 Intake Total 1291 1999.9 Output Total 1600 1679 26 Balance -309 320.9 -26 PT 15.1 SEC (12.0-15.0) H 02/04/18 00:15 INR 1.17 (0.83-1.16) H 02/04/18 00:15 intubated, lightly sedated with propofol/fentanyl Pupils: 4 mm ou reactive JAVID x 4 to command + light touch C/D/I ICP: 3 mmhg this am ICD10 Worksheet Patient Problems: Problems Problem Status Onset Fracture of occipital bone of skull with loss of consciousness Acute Grand mal seizure Acute Subdural hematoma Acute Syncope Acute Traumatic subarachnoid hemorrhage Acute
--- NOTE | 2018-02-04 10:35 | POSTANESTH ---
Post Anesthetic Evaluation Cardiovascular Status: Normal, Stable Respiratory Status: Other, See Comment Level of Consciousness/Mental Status: Mildly Sleepy, Arousable Pain Control: Adequate, Prn Tx Ordered Nausea/Vomiting Control: Adequate, Prn Tx Ordered Complications Possibly Related to Anesthesia: None Noted (Still on vent, weaning )
[2018-02-04] MEDS ORDERED: POTASSIUM Cl (KCl) 50 ML IV SCH (13:00)
[2018-02-04] MEDS: POTASSIUM Cl (KCl) 10 MEQ in D5W 50 ML IV SCH ×3 (13:25→15:14)
--- NOTE | 2018-02-04 13:42 | PDINTPN ---
Anesthesiology Tech Progress Note Assessment/Plan: Assessment/plan: 72 F admited 02/03 after unwitnessed fall of about 6 feet with syncope, found to have SDH/intraparenchymal hemorrhage who was monitored initially, but deteriorated requiring craniectomy with evacuation of blood, partial cerebellar lobectomy, and EVD placement. She remained intubated overnight but had excellent AM parameters and was extubated 02/04. * Traumatic ICH- s/p above procedure with relative stability. BP parameters include SBP<130, Na 140-150 using cardene and 3% NS. PT/OT/Speech to see * Seizure- 2/2 #1. No further seizure activity noted at [facility] on Keppra * Acute respiratory failure with hypoxia and ventilator management. Her AM ABG looked excellent and her RSBI was <<100. Extubated without difficulty * Altered MS- she was quite agitated preop and may require pharmacologic management once extubated. Consider Haldol/Zyprexa * Hypokalemia- protocol started and replaced critical care time 45 minutes Subjective: continued edterioration last pm and had to go to OR for crainectomy, evac of SDH and EVD Objective: Vital Signs Temp Pulse Resp BP Pulse Ox 36.1 C 90 14 114/73 98 02/04/18 07:00 02/04/18 13:00 02/04/18 13:00 02/04/18 13:00 02/04/18 13:00 Laboratory Results 02/04/18 06:15 02/04/18 11:30 02/03/18 02/04/18 02/05/18 05:59 05:59 05:59 Intake Total 1291 1999.9 Output Total 1600 1679 1081 Balance -309 320.9 -1081 PT 15.1 SEC (12.0-15.0) H 02/04/18 00:15 INR 1.17 (0.83-1.16) H 02/04/18 00:15 Physical Exam - Physical Exam General Appearance: no apparent distress, anxiety EENT: PERRL/EOMI, ET tube, other (racoons eyes) Neck: normal inspection, other (c collar) Respiratory: lungs clear, normal breath sounds, No respiratory distress, No accessory muscle use Cardiac/Chest: regular rate, rhythm, No edema Abdomen: non-tender, soft, No normal bowel sounds, No distended, No guarding Skin: normal color, warm/dry, No cyanosis Lymphatic: no adenopathy Extremities: No pedal edema Neuro/Psych: cognition abnormalities ICD10 Worksheet Patient Problems: Problems Problem Status Onset Fracture of occipital bone of skull with loss of consciousness Acute Grand mal seizure Acute Subdural hematoma Acute Syncope Acute Traumatic subarachnoid hemorrhage Acute
--- NOTE | 2018-02-04 14:41 | ASMTCMCOM ---
CM Note CM Note Notes: Patient had a crani yesterday. Extubated today. Patient has had some agitation. Patient is following commands and answering simple questions.Patient may need rehab program for brain injury. Inpatient rehab eval has been ordered and they are following.CM will follow. Date Signed: 02/04/2018 02:41 PM Electronically Signed By:Josie Montes LCSW
--- NOTE | 2018-02-04 16:48 | ECHO ---
[email or web address] [address] [address] Main: [phone] Fax: Transthoracic Echocardiogram Name: NATALIIA RAY MR#: [id number] Study Date: 02/04/2018 Study Time: 11:48 AM Date of : 1945 Age: 72 year(s) Height: 170.2 cm (67 in.) Weight: 58.97 kg (130 lb.) BSA: 1.68 m2 Gender: Female Examination: Echo Indication: Cardiac: syncope Image Quality: Contrast: Requested by: Nannette Díaz BP: 131 mmHg/63 mmHg Heart Rate: Rhythm: Indication: Cardiac: syncope Procedure Staff Oracle Software Engineer: Marie Chase RDCS Reading Physician: Kodi Fraser MD Requesting Provider: Conclusions: Normal size left ventricle. No LV hypertrophy. Normal global systolic LV function. The ejection fraction is estimated to be 70-75 %. Normal size right ventricle. Mild mitral valve regurgitation is present. The aortic valve is normal in appearance and function. The tricuspid valve is normal in appearance and function. Mild tricuspid regurgitation is present. RVSP is 44mmHG.. Pulmonary valve not well visualized. Measurements: Chambers Valvular Assessment AV/MV Valvular Assessment TV/PV Normal Normal Normal Name Value Range Name Value Range Name Value Range Ao Deena (MM): 3.3 cm (2.2 cm-3.7 AV meanP mmHg ( - ) TR Vmax: 3.12 mm/s ( - ) cm) MV E Vmax: 1.15 m/s ( - ) TR PGmax: 39 mmHg ( - ) IVSd (2D): 0.6 cm (0.6 cm-1.1 MV A Vmax: 0.96 m/s ( - ) syst. PAP: 44 mmHg ( - ) cm) MV E/A: 1.20 ( - ) LVDd (2D): 4.8 cm (3.9 cm-5.3 cm) LVDs (2D): 2.6 cm (2.1 cm-4 cm) LVPWd (2D): 0.6 cm ( - ) LVOTd 2.1 cm 2.1 cm mm LVEF (MOD4): 79 % (>=55 %) EF Range: 70-75 % Continued Measurements: Patient: NATALIIA RYA Study Date: 02/04/2018 Page 1 of 2 11:48 AM Chambers Valvular Assessment AV/MV Valvular Assessment TV/PV Name Value Name Value Name Value LADs: 3.4 cm MV E' Septal: 0.08 m/s CVP (est.): 5 mmHg LADs Lon.4 cm MV E/E' Septal: 14.70 LA Area: 10.3 cm2 MV E/E' Lateral: 14.00 Findings: Left Ventricle: Normal size left ventricle. No LV hypertrophy. Normal global systolic LV function. The ejection fraction is estimated to be 70-75 %. No regional wall motion abnormality. Right Ventricle: Normal size right ventricle. There is a moderator band noted in the right ventricle. Left Atrium: The left atrium is normal in size. Right Atrium: The right atrium is normal in size. Mitral Valve: The mitral valve is normal in appearance and function. Mild mitral valve regurgitation is present. Aortic Valve: The aortic valve is normal in appearance and function. Trivial aortic valve regurgitation. Tricuspid Valve: The tricuspid valve is normal in appearance and function. Mild tricuspid regurgitation is present. RVSP is 44mmHG.. Pulmonic Valve: Pulmonary valve not well visualized. Aorta: The aorta is normal. Pericardium: No pericardial effusion. (No Signature Object) Patient: NATALIIA RAY Study Date: 02/04/2018 Page 2 of 2 11:48 AM [id number]
[2018-02-04] MEDS: ACETAMINOPHEN 650 MG SUPP PR PRN ×2 (19:11→23:59)
--- NOTE | 2018-02-04 19:35 | HOSPPROG ---
Hospitalist Progress Note Assessment/Plan: * SDH/IP hemorrhage - traumatic -to OR last night for cerebellar hematoma evacuation and partial cerebellar lobectomy -now with ventric * Cerebral edema -3% saline per neurosurgery * Occipital bone fracture * Head lac -sutures/waldemar placed in ER * Syncope vs mechanical fall -ECHO/tele negative * Seizure - Keppra * Encephalopathy -mental status slowly improving * Dysphagia -NPO until mental status improves * C-spine -continue collar until mental status improves * EKG changes -suspect TWI due to increased intra-cranial pressure -troponin negative Subjective: extubated this am - waking up Objective: Vital Signs Temp Pulse Resp BP Pulse Ox 37.2 C 97 15 127/54 H 97 02/04/18 19:00 02/04/18 19:00 02/04/18 19:00 02/04/18 19:00 02/04/18 19:00 Laboratory Results 02/04/18 06:15 02/04/18 18:10 02/03/18 02/04/18 02/05/18 05:59 05:59 05:59 Intake Total 1291 1999.9 1125 Output Total 1600 1679 2557 Balance -309 320.9 -1432 PT 15.1 SEC (12.0-15.0) H 02/04/18 00:15 INR 1.17 (0.83-1.16) H 02/04/18 00:15 ECHO - normal EF d/w Dr. Perez ICU rounds regarding events - Physical Exam Constitutional: no apparent distress, appears nourished, not in pain Cardiovascular: regular rate and rhythym, no murmur, rub, or gallop Respiratory: no respiratory distress, no rales or rhonchi, clear to auscultation Gastrointestinal: normoactive bowel sounds, soft, non-tender abdomen, no palpable masses Skin: no rashes or abrasions, no fluctuance, no induration, other (chery-orbital eccymosis) Neurologic: No AAOx3 Psychiatric: encephalopathic, flat affect, poor insight, poor judgement, No interacting appropriately ICD10 Worksheet Patient Problems: Problems Problem Status Onset Fracture of occipital bone of skull with loss of consciousness Acute Grand mal seizure Acute Subdural hematoma Acute Syncope Acute Traumatic subarachnoid hemorrhage Acute
[2018-02-04] MEDS: POTASSIUM Cl (KCl) 10 MEQ in NS 50 ML IV SCH ×3 (19:52→20:51)
[2018-02-05] MEDS: NS W/ 20 KCl/L 1,000 ML IV SCH (00:38)
[2018-02-05] MEDS ORDERED: POTASSIUM Cl (KCl) 100 ML IV ONE (01:00)
[2018-02-05] MEDS ORDERED: POTASSIUM Cl (KCl) 10 MEQ in NS 50 ML IV ONE (02:00)
[2018-02-05] MEDS: niCARdipine/NACL 200 ML IV PRN ×8 (02:19→23:59)
[2018-02-05] MEDS: ACETAMINOPHEN 650 MG SUPP PR PRN (04:03)
[2018-02-05] MEDS: SODIUM Cl 3% 500 ML IV SCH (05:43)
--- NOTE | 2018-02-05 07:16 | SOAPPROG ---
SOAP Progress Note Assessment/Plan: Assessment: 72 yo F with left sided SDH, right tentorial subdural hematoma and cerebellar hematoma, POD #1 EVD placement and suboccipital craniotomy for evacuation of hemorrhage. Plan: neuro: stable and improved this overall. Head CT 02/04 with good evacuation of cerebellum and improved and hydrocephalus. EVD in good position. keep ventric open to drain at 5 mmhg cardine to keep SBP < 130 mmhg will keep in ICU with Q1 hour neuro checks continue keppra at 750 mg po/iv bid will add 3% to get NA > 140, PICC line placed, Na at goal of 149 this am appreciate Medicine help with medical issues. will dc CARIDAD today PT/OT/ST hard collar until mentation improves please call with neuro changes seen by Dr Bryant. 02/02/18 14:45 02/02/18 20:50 02/02/18 20:53 02/03/18 07:11 02/04/18 02:55 02/04/18 10:01 02/05/18 07:13 Subjective: chart reviewed, no headaches. no N/V. Continued agitation Objective: Vital Signs Temp Pulse Resp BP Pulse Ox 37.2 C 94 15 134/52 H 97 02/05/18 04:00 02/05/18 06:00 02/05/18 06:00 02/05/18 06:00 02/05/18 06:00 Laboratory Results 02/04/18 06:15 02/05/18 06:15 02/04/18 02/05/18 02/06/18 05:59 05:59 05:59 Intake Total 1999.9 4250 Output Total 1679 5455 7 Balance 320.9 -1205 -7 PT 15.1 SEC (12.0-15.0) H 02/04/18 00:15 INR 1.17 (0.83-1.16) H 02/04/18 00:15 somnolent but opens eyes to voice slurred speech this am but patient just received morphine, oriented to place/ year earlier per RN pupils: 4 mm ou reactive JAVID x 4 to command C/D/I ICD10 Worksheet Patient Problems: Problems Problem Status Onset Fracture of occipital bone of skull with loss of consciousness Acute Grand mal seizure Acute Subdural hematoma Acute Syncope Acute Traumatic subarachnoid hemorrhage Acute
[2018-02-05] MEDS ORDERED: POTASSIUM Cl (KCl) 50 ML IV ONE ×2 (08:10→16:08)
[2018-02-05] MEDS: FAMOTIDINE 20 MG TAB PO SCH ×2 (08:25→20:28)
[2018-02-05] MEDS: SENNOSIDES/DOCUSATE SODIUM TAB PO SCH ×2 (09:36→20:29)
[2018-02-05] MEDS: FAMOTIDINE 20 MG/NACL 50 ML IV SCH (09:36)
[2018-02-05] MEDS: levETIRAcetam 750 MG in NS (SYRINGE) 50 ML IV SCH (09:36)
--- NOTE | 2018-02-05 15:05 | HOSPPROG ---
Hospitalist Progress Note Assessment/Plan: 72 yo F presenting s/p fall with SDH/IPH * SDH/IP hemorrhage - traumatic -status post cerebellar hematoma evacuation and partial cerebellar lobectomy -now with ventric in place * Cerebral edema -3% saline per neurosurgery * Occipital bone fracture * Head lac -sutures/waldemar placed in ER * Syncope vs mechanical fall -ECHO/tele negative, pt/ot to be involved * Seizure - Keppra * Encephalopathy -mental status slowly improving * Dysphagia -cleared by speech today * C-spine -continue collar until mental status improves * EKG changes -suspect TWI due to increased intra-cranial pressure -troponin negative Patient new to my care. Old records reviewed/summarized as above. Care plan reviewed with Dr. Perez on multidisciplinary care team on rounds. Subjective: no significant overnight events, patient remains confused Objective: Vital Signs Temp Pulse Resp BP Pulse Ox 36.4 C 96 16 138/56 H 99 02/05/18 11:00 02/05/18 15:00 02/05/18 15:00 02/05/18 15:00 02/05/18 15:00 Laboratory Results 02/04/18 06:15 02/05/18 06:15 02/04/18 02/05/18 02/06/18 05:59 05:59 05:59 Intake Total 1999.9 4250 Output Total 1679 5455 1045 Balance 320.9 -1205 -1045 PT 15.1 SEC (12.0-15.0) H 02/04/18 00:15 INR 1.17 (0.83-1.16) H 02/04/18 00:15 somnolent, arousable but minimally interactive anicteric, bilateral ecchymoses around eyes op clear rrr no mrg cta to ant exam soft nt nd no cce warm dry well perfused oriented x 1, somnolent tangential ICD10 Worksheet Patient Problems: Problems Problem Status Onset Traumatic subarachnoid hemorrhage Acute Fracture of occipital bone of skull with loss of consciousness Acute Syncope Acute Subdural hematoma Acute Grand mal seizure Acute
--- NOTE | 2018-02-05 15:56 | PDINTPN ---
Spaghetti Machine Operator Progress Note Assessment/Plan: Assessment/plan: 72 F admited 02/03 after unwitnessed fall of about 6 feet with syncope, found to have SDH/intraparenchymal hemorrhage who was monitored initially, but deteriorated requiring craniectomy with evacuation of blood, partial cerebellar lobectomy, and EVD placement. She remained intubated overnight but had excellent AM parameters and was extubated 02/04. * Traumatic ICH- s/p above procedure with relative stability. BP parameters include SBP<130, Na 140-150 using cardene and 3% NS. Remains in C collar until cleared by surgery * Seizure- 2/2 #1. No further seizure activity noted at [facility] on Keppra * Acute respiratory failure with hypoxia. Extubated without difficulty * Altered MS- she was quite agitated preop and may require pharmacologic management once extubated. Consider Haldol/Zyprexa * Hypokalemia- protocol started and replaced 02/05/18 15:55 Subjective: extubated though still confused Objective: Vital Signs Temp Pulse Resp BP Pulse Ox 36.4 C 96 16 138/56 H 99 02/05/18 11:00 02/05/18 15:00 02/05/18 15:00 02/05/18 15:00 02/05/18 15:00 Laboratory Results 02/04/18 06:15 02/05/18 15:18 02/04/18 02/05/18 02/06/18 05:59 05:59 05:59 Intake Total 1999.9 4250 Output Total 1679 5455 1045 Balance 320.9 -1205 -1045 PT 15.1 SEC (12.0-15.0) H 02/04/18 00:15 INR 1.17 (0.83-1.16) H 02/04/18 00:15 Physical Exam - Physical Exam General Appearance: alert, other (confused and easily agitated but also easily re-directed) EENT: PERRL/EOMI, other (racoons eyes) Neck: other (c collar) Respiratory: lungs clear, normal breath sounds, No respiratory distress, No accessory muscle use Cardiac/Chest: regular rate, rhythm, No edema Abdomen: non-tender, soft, No distended Skin: normal color, warm/dry, No cyanosis Lymphatic: no adenopathy Extremities: No pedal edema Neuro/Psych: alert, cognition abnormalities ICD10 Worksheet Patient Problems: Problems Problem Status Onset Fracture of occipital bone of skull with loss of consciousness Acute Grand mal seizure Acute Subdural hematoma Acute Syncope Acute Traumatic subarachnoid hemorrhage Acute
[2018-02-05] MEDS: levETIRAcetam 500 MG/5 ML UDCUP PO SCH (20:29)
[2018-02-05] MEDS: POTASSIUM Cl (KCl) 10 MEQ in NS 50 ML IV SCH ×2 (22:24→23:06)
[2018-02-06] MEDS: POTASSIUM Cl (KCl) 10 MEQ in NS 50 ML IV SCH (01:01)
[2018-02-06] MEDS: niCARdipine/NACL 200 ML IV PRN ×4 (03:02→11:46)
--- NOTE | 2018-02-06 07:20 | NEUSURGPN ---
Assessment/Plan: Assessment: 72 yo F with left sided SDH, right tentorial subdural hematoma and cerebellar hematoma, POD #2 EVD placement and suboccipital craniectomy for evacuation of hemorrhage - bone flap will be kept off. Plan: neuro: more sedated this am after [place] given last night. Will dc this medication and try to stick to acetaminophen for pain. also discussed she could have some ICU delirium - will see if we can change her room today. Head CT 02/04 with good evacuation of cerebellum and improved and hydrocephalus. EVD in good position. keep ventric open to drain at 10 mmhg - will continue to raise by 5 deg/day if pt is tolerating well cardine to keep SBP < 150 mmhg will keep in ICU with Q1 hour neuro checks - if does well today will change to Q2 hours checks continue keppra at 750 mg bid Normalize sodium goals. Off of 3%. appreciate Medicine help with medical issues. CARIDAD drain was removed PT/OT/ST hard collar in place please call with neuro changes D/w Dr Bryant. Dr. Bryant to see pt later today as well. Subjective: Pt sleeping in bed, at bedside. Denies pain. Objective: Sleeping but awakens easily States year is 1979 or 1987 - can't come up with 2018. States month is October. Called her ex husbands name. NAD VSS MAEx4 Motor 5/5 BUE/BLE Follows all commands bilateral periorbital ecchymosis Ventric site CDI - ventric with clear blood tinged fluid C collar on Urinary Catheter in Place: Yes Urinary Catheter Indication: Surgical Requirement Catheter Insertion Date: 02/02/18 - Physician Discussed Patient with Dr.: Bryant Neurosurgery Physical Exam - Vitals, I&O, Labs I and O 02/05/18 02/06/18 02/07/18 05:59 05:59 05:59 Intake Total 4250 3775 Output Total 5455 4128 19 Balance -1205 -353 -19 Weight 59 kg Intake: Oral (ml) 0 150 IV Infused (ml) 4250 3625 NS W/ 20 KCl/L 1,000 ml @ 2161 918 75 mls/hr IV CONT NASREEN Rx #:[id number] Ns 1,000 ml @ 75 mls/hr 566 IV CONT NASREEN Rx#: [id number] Propofol/Emulsion 100 ml 23 @ Titrate IV CONT NASREEN Rx# :[id number] SODIUM Cl 3% 500 ml @ 25 980 406 mls/hr IV CONT [facility] Rx#: [id number] fentaNYL 1,000 mcg In Ns 17 100 ml @ As Directed IV CONT NASREEN Rx#:[id number] niCARdipine/NACL 200 ml @ 1069 1735 Titrate IV PRN PRN Rx#: [id number] Output: Urine (ml) 5275 3985 Catheter 5275 3985 CSF Drainage Amount 145 143 19 Left Ventriculostomy 145 143 19 CARIDAD Drain Output (ml) 35 Right Posterior 35 Other: Number of Stools Catheter 0 0 Vital Signs Temp Pulse Resp BP Pulse Ox 36.8 C 97 17 137/60 H 97 02/06/18 05:00 02/06/18 07:00 02/06/18 07:00 02/06/18 07:00 02/06/18 07:00 Laboratory Results 02/04/18 06:15 02/06/18 05:20 ICD10 Worksheet Patient Problems: Problems Problem Status Onset Fracture of occipital bone of skull with loss of consciousness Acute Grand mal seizure Acute Subdural hematoma Acute Syncope Acute Traumatic subarachnoid hemorrhage Acute
[2018-02-06] MEDS: levETIRAcetam 500 MG/5 ML UDCUP PO SCH ×2 (08:38→20:26)
[2018-02-06] MEDS: SENNOSIDES/DOCUSATE SODIUM TAB PO SCH ×2 (08:39→20:27)
[2018-02-06] MEDS: FAMOTIDINE 20 MG TAB PO SCH ×2 (08:39→20:26)
[2018-02-06] MEDS: POTASSIUM Cl (KCl) 50 ML IV SCH ×3 (13:53→13:56)
--- NOTE | 2018-02-06 14:26 | HOSPPROG ---
Hospitalist Progress Note Assessment/Plan: 72 yo F presenting s/p fall with SDH/IPH * SDH/IP hemorrhage - traumatic -status post cerebellar hematoma evacuation and partial cerebellar lobectomy * Cerebral edema -3% saline per neurosurgery now on hold given continued elevation in Na * Occipital bone fracture * Head lac -sutures/waldemar placed in ER * Syncope vs mechanical fall -ECHO/tele negative, pt/ot to be involved * Seizure - Keppra * Encephalopathy -mental status slowly improving * Dysphagia -cleared by speech today * C-spine -continue collar until mental status improves * EKG changes -suspect TWI due to increased intra-cranial pressure -troponin negative Care plan reviewed with Dr. Perez on multidisciplinary care team on rounds. Subjective: no significant overnight events, patient stable Objective: Vital Signs Temp Pulse Resp BP Pulse Ox 36.5 C 83 17 120/63 93 02/06/18 14:00 02/06/18 14:00 02/06/18 14:00 02/06/18 14:00 02/06/18 14:00 Laboratory Results 02/04/18 06:15 02/06/18 12:16 02/05/18 02/06/18 02/07/18 05:59 05:59 05:59 Intake Total 4250 3775 472 Output Total 5480 4128 1156 Balance -5213 -385 -336 PT 15.1 SEC (12.0-15.0) H 02/04/18 00:15 INR 1.17 (0.83-1.16) H 02/04/18 00:15 somnolent, arousable but minimally interactive anicteric, bilateral ecchymoses around eyes op clear rrr no mrg cta to ant exam soft nt nd no cce warm dry well perfused oriented x 1, somnolent tangential ICD10 Worksheet Patient Problems: Problems Problem Status Onset Fracture of occipital bone of skull with loss of consciousness Acute Grand mal seizure Acute Subdural hematoma Acute Syncope Acute Traumatic subarachnoid hemorrhage Acute
--- NOTE | 2018-02-06 14:29 | PDINTPN ---
Transportation Clerk Progress Note Assessment/Plan: Assessment/plan: 72 F admited 02/03 after unwitnessed fall of about 6 feet with syncope, found to have SDH/intraparenchymal hemorrhage who was monitored initially, but deteriorated requiring craniectomy with evacuation of blood, partial cerebellar lobectomy, and EVD placement. She remained intubated overnight but had excellent AM parameters and was extubated 02/04. * Traumatic ICH- s/p above procedure with relative stability. BP parameters include SBP<130, Na 140-150 using cardene and 3% NS. Remains in C collar until cleared by surgery (not yet clear enough to provide reliable history) * Seizure- 2/2 #1. No further seizure activity noted at [facility] on Keppra * Acute respiratory failure with hypoxia. Extubated without difficulty * Altered MS- she was quite agitated preop and may require pharmacologic management once extubated. Consider Haldol/Zyprexa over narcotics * Hypokalemia- protocol started and replaced Subjective: more alert, but perseverating on various issues Objective: Vital Signs Temp Pulse Resp BP Pulse Ox 36.5 C 83 17 120/63 93 02/06/18 14:00 02/06/18 14:00 02/06/18 14:00 02/06/18 14:00 02/06/18 14:00 Laboratory Results 02/04/18 06:15 02/06/18 12:16 02/05/18 02/06/18 02/07/18 05:59 05:59 05:59 Intake Total 4250 3775 472 Output Total 5455 4128 1156 Balance -1205 -353 -684 PT 15.1 SEC (12.0-15.0) H 02/04/18 00:15 INR 1.17 (0.83-1.16) H 02/04/18 00:15 Physical Exam - Physical Exam General Appearance: no apparent distress, other (confused) EENT: PERRL/EOMI, other (racoons eyes) Neck: other (c collar) Respiratory: lungs clear, normal breath sounds, decreased breath sounds, No respiratory distress, No accessory muscle use Cardiac/Chest: regular rate, rhythm, No edema Abdomen: non-tender, soft, No distended Skin: normal color, warm/dry, No cyanosis Lymphatic: no adenopathy Extremities: No pedal edema Neuro/Psych: alert, cognition abnormalities ICD10 Worksheet Patient Problems: Problems Problem Status Onset Fracture of occipital bone of skull with loss of consciousness Acute Grand mal seizure Acute Subdural hematoma Acute Syncope Acute Traumatic subarachnoid hemorrhage Acute
--- NOTE | 2018-02-06 14:37 | ASMTCMCOM ---
CM Note CM Note Notes: Therapies are recommending inpatient rehab. Pt is not medically stable to d/c at this time. Inpatient rehab reports that pt is a good candidate for their program. Inpatient rehab will re-assess on Friday for appropriateness. CM to follow. Plan: Inpatient Rehab Date Signed: 02/06/2018 02:36 PM Electronically Signed By:ROSIE Quevedo
[2018-02-06] MEDS: ACETAMINOPHEN 325 MG TAB PO PRN (20:27)
[2018-02-07] MEDS: NS 1,000 ML IV SCH (02:14)
[2018-02-07] MEDS ORDERED: POTASSIUM Cl (KCl) 100 ML IV ONE (02:15)
[2018-02-07] MEDS ORDERED: POTASSIUM Cl (KCl) 10 MEQ in NS 50 ML IV ONE (03:15)
[2018-02-07 04:22] LABS: PLATELET COUNT 203 10^3/uL (150-400)
[2018-02-07] MEDS ORDERED: POTASSIUM Cl (KCl) 10 MEQ in D5W 50 ML IV SCH (07:30)
[2018-02-07] MEDS ORDERED: POTASSIUM Cl (KCl) 50 ML IV SCH (07:30)
--- NOTE | 2018-02-07 09:21 | SOAPPROG ---
SOAP Progress Note Assessment/Plan: Assessment: 72 yo F with left sided SDH, right tentorial subdural hematoma and cerebellar hematoma, POD #1 EVD placement and suboccipital craniotomy for evacuation of hemorrhage. Plan: neuro: stable and improved this overall. Head CT 02/04 with good evacuation of cerebellum and improved and hydrocephalus. EVD in good position. keep ventric open to drain at 10 mmhg, working on weaning EVD cardine to keep SBP < 130 mmhg scd/kellie for dvt prophylaxis continue keppra at 750 mg po/iv bid 3% stopped, Na 154 this am, will allow to slowly normalize appreciate Medicine help with medical issues. patient will likely need inpatient rehab PT/OT/ST hard collar until mentation improves please call with neuro changes seen by Dr Whelan 02/02/18 14:45 02/02/18 20:50 02/02/18 20:53 02/03/18 07:11 02/04/18 02:55 02/04/18 10:01 02/05/18 07:13 02/07/18 09:18 Subjective: chart reviewed, mild headaches, No N/V. Objective: Vital Signs Temp Pulse Resp BP Pulse Ox 36.4 C 98 12 148/70 H 98 02/07/18 00:00 02/07/18 06:00 02/07/18 06:00 02/07/18 06:00 02/07/18 06:00 Laboratory Results 02/07/18 04:10 02/07/18 04:10 02/06/18 02/07/18 02/08/18 05:59 05:59 05:59 Intake Total 6227 3493 Output Total 0878 3819 8 Balance -353 -326 -8 PT 15.1 SEC (12.0-15.0) H 02/04/18 00:15 INR 1.17 (0.83-1.16) H 02/04/18 00:15 Awake, alert, +FC oriented to name PERRL, EOMI, no facial droop 5/5 + light touch C/D/I ICD10 Worksheet Patient Problems: Problems Problem Status Onset Fracture of occipital bone of skull with loss of consciousness Acute Grand mal seizure Acute Subdural hematoma Acute Syncope Acute Traumatic subarachnoid hemorrhage Acute
[2018-02-07] MEDS: POTASSIUM Cl (KCl) 50 ML IV SCH ×3 (10:21→11:59)
[2018-02-07] MEDS: SENNOSIDES/DOCUSATE SODIUM TAB PO SCH ×2 (10:53→21:05)
[2018-02-07] MEDS: FAMOTIDINE 20 MG TAB PO SCH ×2 (10:53→21:04)
[2018-02-07] MEDS: levETIRAcetam 500 MG/5 ML UDCUP PO SCH ×2 (10:53→21:03)
[2018-02-07] MEDS: ACETAMINOPHEN 325 MG TAB PO PRN (11:34)
--- NOTE | 2018-02-07 14:10 | PDINTPN ---
Teacher Learning Disabled Progress Note Assessment/Plan: Assessment/plan: 72 F admited 02/03 after unwitnessed fall of about 6 feet with syncope, found to have SDH/intraparenchymal hemorrhage who was monitored initially, but deteriorated requiring craniectomy with evacuation of blood, partial cerebellar lobectomy, and EVD placement. She remained intubated overnight but had excellent AM parameters and was extubated 02/04. * Traumatic ICH- s/p above procedure with relative stability. BP parameters include SBP<130, Na 140-150 using cardene and 3% NS. Remains in C collar until cleared by surgery * Seizure- 2/2 #1. No further seizure activity noted at [facility] on Keppra * Acute respiratory failure with hypoxia. Extubated without difficulty * Altered MS- she was quite agitated preop and may require pharmacologic management once extubated. Consider Haldol/Zyprexa over narcotics * Hypokalemia- protocol started and replaced 02/07/18 14:09 Subjective: improving mental status Objective: Vital Signs Temp Pulse Resp BP Pulse Ox 36.8 C 75 17 140/65 H 96 02/07/18 14:00 02/07/18 14:00 02/07/18 14:00 02/07/18 14:00 02/07/18 14:00 Laboratory Results 02/07/18 04:10 02/07/18 04:10 02/06/18 02/07/18 02/08/18 05:59 05:59 05:59 Intake Total 3775 3493 Output Total 4128 3819 18 Balance -353 -326 -18 PT 15.1 SEC (12.0-15.0) H 02/04/18 00:15 INR 1.17 (0.83-1.16) H 02/04/18 00:15 Physical Exam - Physical Exam General Appearance: no apparent distress EENT: PERRL/EOMI Neck: supple Respiratory: lungs clear, normal breath sounds, No respiratory distress, No accessory muscle use Cardiac/Chest: regular rate, rhythm, No edema Abdomen: non-tender, soft, No distended Skin: normal color, warm/dry, No cyanosis Lymphatic: no adenopathy Extremities: No pedal edema Neuro/Psych: cognition abnormalities ICD10 Worksheet Patient Problems: Problems Problem Status Onset Fracture of occipital bone of skull with loss of consciousness Acute Grand mal seizure Acute Subdural hematoma Acute Syncope Acute Traumatic subarachnoid hemorrhage Acute
[2018-02-07] MEDS ORDERED: POTASSIUM Cl (KCl) 50 ML IV ONE ×2 (15:02→20:28)
--- NOTE | 2018-02-07 15:27 | HOSPPROG ---
Hospitalist Progress Note Assessment/Plan: 72 yo F presenting s/p fall with SDH/IPH * SDH/IP hemorrhage - traumatic -status post cerebellar hematoma evacuation and partial cerebellar lobectomy * Cerebral edema -3% saline per neurosurgery now on hold given continued elevation in Na * Occipital bone fracture * Head lac -sutures/waldemar placed in ER * Syncope vs mechanical fall -ECHO/tele negative, pt/ot to be involved * Seizure - Keppra, no recurrence thus far * Encephalopathy -mental status slowly improving, no longer perseverating today * Dysphagia -cleared by speech today * C-spine -continue collar until mental status improves * EKG changes -suspect TWI due to increased intra-cranial pressure -troponin negative Care plan reviewed with Dr. Perez on multidisciplinary care team on rounds. Further hx obtained from patients present at bedside. Subjective: no significant overnight events, patient somnolent, notes she is making a bit more sense than yesterday Objective: Vital Signs Temp Pulse Resp BP Pulse Ox 36.8 C 75 17 140/65 H 96 02/07/18 14:00 02/07/18 14:00 02/07/18 14:00 02/07/18 14:00 02/07/18 14:00 Laboratory Results 02/07/18 04:10 02/07/18 14:25 02/06/18 02/07/18 02/08/18 05:59 05:59 05:59 Intake Total 3775 3493 840 Output Total 4128 3819 1018 Balance -353 -326 -178 PT 15.1 SEC (12.0-15.0) H 02/04/18 00:15 INR 1.17 (0.83-1.16) H 02/04/18 00:15 somnolent, arousable but minimally interactive anicteric, bilateral ecchymoses around eyes op clear rrr no mrg cta to ant exam soft nt nd no cce warm dry well perfused oriented x 1, somnolent tangential - Time Spent With Patient Time Spent with Patient: greater than 35 minutes Time Spent with Patient: Greater than 35 minutes spent on this patients care, greater than 50% of time spent counseling, educating, and coordinating care regarding the above mentioned plan. ICD10 Worksheet Patient Problems: Problems Problem Status Onset Fracture of occipital bone of skull with loss of consciousness Acute Grand mal seizure Acute Subdural hematoma Acute Syncope Acute Traumatic subarachnoid hemorrhage Acute
[2018-02-07] MEDS: niCARdipine/NACL 200 ML IV PRN (19:27)
[2018-02-08] MEDS: POTASSIUM Cl (KCl) 50 ML IV SCH ×3 (01:50→03:09)
[2018-02-08] MEDS: niCARdipine/NACL 200 ML IV PRN (04:19)
--- NOTE | 2018-02-08 06:49 | SOAPPROG ---
SOAP Progress Note Assessment/Plan: Assessment: 72 yo F with left sided SDH, right tentorial subdural hematoma and cerebellar hematoma, POD #4 EVD placement and suboccipital craniotomy for evacuation of hemorrhage. Plan: neuro: stable and improved this overall. still episodes of agitation and somnolnence. Head CT 02/04 with good evacuation of cerebellum and improved and hydrocephalus. EVD in good position. keep ventric open to drain at 20mmhg, working on weaning EVD cardine to keep SBP < 130 mmhg scd/kellie for dvt prophylaxis continue keppra at 750 mg po/iv bid 3% stopped, Na 154, will allow to slowly normalize. If Na still high then we can add some hypotonic saline appreciate Medicine help with medical issues. patient will likely need inpatient rehab PT/OT/ST hard collar until mentation improves please call with neuro changes Discussed with Dr Whelan 02/02/18 14:45 02/02/18 20:50 02/02/18 20:53 02/03/18 07:11 02/04/18 02:55 02/04/18 10:01 02/05/18 07:13 02/07/18 09:18 02/08/18 06:47 Subjective: chart reviewed. No N/V. some agitation Objective: Vital Signs Temp Pulse Resp BP Pulse Ox 37.3 C 93 18 150/72 H 96 02/08/18 06:00 02/08/18 06:00 02/08/18 06:00 02/08/18 06:00 02/08/18 06:00 Laboratory Results 02/07/18 04:10 02/07/18 02/08/18 02/09/18 05:59 05:59 05:59 Intake Total 3493 1503 1172 Output Total 3819 3726 Balance -326 -2223 1172 PT 15.1 SEC (12.0-15.0) H 02/04/18 00:15 INR 1.17 (0.83-1.16) H 02/04/18 00:15 somnolent but opens eyes to voice confused to month/year PERRL, no facial droop JAVID x 4 + light touch C/D/I ICD10 Worksheet Patient Problems: Problems Problem Status Onset Fracture of occipital bone of skull with loss of consciousness Acute Grand mal seizure Acute Subdural hematoma Acute Syncope Acute Traumatic subarachnoid hemorrhage Acute
[2018-02-08] MEDS ORDERED: POTASSIUM Cl (KCl) 50 ML IV ONE (07:26)
[2018-02-08] MEDS: FAMOTIDINE 20 MG TAB PO SCH ×2 (07:29→20:44)
[2018-02-08] MEDS: levETIRAcetam 500 MG/5 ML UDCUP PO SCH ×2 (07:29→20:44)
[2018-02-08] MEDS: ACETAMINOPHEN 325 MG TAB PO PRN ×2 (07:30→18:12)
[2018-02-08] MEDS: SENNOSIDES/DOCUSATE SODIUM TAB PO SCH ×2 (10:01→20:44)
[2018-02-08] MEDS ORDERED: MELATONIN 3 MG TAB PO PRN (11:12)
--- NOTE | 2018-02-08 12:29 | PDINTPN ---
Chip Unloader Progress Note Assessment/Plan: Assessment/plan: 72 F admited 02/03 after unwitnessed fall of about 6 feet with syncope, found to have SDH/intraparenchymal hemorrhage who was monitored initially, but deteriorated requiring craniectomy with evacuation of blood, partial cerebellar lobectomy, and EVD placement. She remained intubated overnight but had excellent AM parameters and was extubated 02/04. * Traumatic ICH- s/p above procedure with relative stability. BP parameters now SBP<160, Na 140-150. Remains in C collar until cleared by surgery * Seizure- 2/2 #1. No further seizure activity noted at [facility] on Keppra * Acute respiratory failure with hypoxia. Extubated without difficulty * Altered MS- she was quite agitated preop and has fluctuated since. Consider Haldol/Zyprexa over narcotics since this has resulted in somnolence today. Her ICP is 8-9 despite increasing her EVD to 20, so I dont think her MS today is from ICP. * Hypokalemia- protocol started and replaced * OK for floor Subjective: somnolent this am Objective: Vital Signs Temp Pulse Resp BP Pulse Ox 37.4 C 81 16 142/64 H 95 02/08/18 10:00 02/08/18 09:00 02/08/18 11:00 02/08/18 11:00 02/08/18 11:00 Laboratory Results 02/07/18 04:10 02/08/18 06:15 02/07/18 02/08/18 02/09/18 05:59 05:59 05:59 Intake Total 3493 1503 1732 Output Total 3819 3726 450 Balance -326 -2223 1282 PT 15.1 SEC (12.0-15.0) H 02/04/18 00:15 INR 1.17 (0.83-1.16) H 02/04/18 00:15 Physical Exam - Physical Exam General Appearance: other (somnolent and non verbal) EENT: PERRL/EOMI, other (c collar, racoons eyes improving) Neck: other Respiratory: lungs clear, normal breath sounds, No respiratory distress, No accessory muscle use Cardiac/Chest: regular rate, rhythm, No edema Abdomen: non-tender, soft, No distended Skin: normal color, warm/dry, No cyanosis Lymphatic: no adenopathy Extremities: No pedal edema Neuro/Psych: cognition abnormalities, No abnormal imaging technologist II-XII ICD10 Worksheet Patient Problems: Problems Problem Status Onset Fracture of occipital bone of skull with loss of consciousness Acute Grand mal seizure Acute Subdural hematoma Acute Syncope Acute Traumatic subarachnoid hemorrhage Acute
--- NOTE | 2018-02-08 15:55 | HOSPPROG ---
Hospitalist Progress Note Assessment/Plan: 72 yo F presenting s/p fall with SDH/IPH * SDH/IP hemorrhage - traumatic -status post cerebellar hematoma evacuation and partial cerebellar lobectomy , goal sbp now liberalized to less than 160 * Cerebral edema -off of 3%, Na wnl * Occipital bone fracture * Head lac -sutures/waldemar placed in ER * Syncope vs mechanical fall -ECHO/tele negative, pt/ot to be involved * Seizure - Keppra, no recurrence thus far * Encephalopathy -mental status slowly improving * Dysphagia -cleared by speech today * C-spine -continue collar until mental status improves * EKG changes -suspect TWI due to increased intra-cranial pressure -troponin negative Care plan reviewed with Dr. Perez on multidisciplinary care team on rounds. Further hx obtained from patients present at bedside. Subjective: no significant overnight events, patient currently doing better, able to ambulate, more alert Objective: Vital Signs Temp Pulse Resp BP Pulse Ox 36.6 C 82 16 138/68 H 96 02/08/18 14:00 02/08/18 15:00 02/08/18 15:00 02/08/18 15:00 02/08/18 15:00 Laboratory Results 02/07/18 04:10 02/08/18 14:00 02/07/18 02/08/18 02/09/18 05:59 05:59 05:59 Intake Total 3493 1503 1972 Output Total 3819 3726 450 Balance -326 -2223 1522 PT 15.1 SEC (12.0-15.0) H 02/04/18 00:15 INR 1.17 (0.83-1.16) H 02/04/18 00:15 somnolent, arousable but minimally interactive anicteric, bilateral ecchymoses around eyes op clear rrr no mrg cta to ant exam soft nt nd no cce warm dry well perfused oriented x 1, somnolent tangential ICD10 Worksheet Patient Problems: Problems Problem Status Onset Fracture of occipital bone of skull with loss of consciousness Acute Grand mal seizure Acute Subdural hematoma Acute Syncope Acute Traumatic subarachnoid hemorrhage Acute
[2018-02-08] MEDS: traMADol 50 MG TAB PO PRN (23:11)
[2018-02-09] MEDS ORDERED: POTASSIUM Cl (KCl) 50 ML IV ONE ×2 (01:23→08:01)
[2018-02-09] MEDS: ACETAMINOPHEN 325 MG TAB PO PRN ×3 (02:57→13:41)
[2018-02-09] MEDS: levETIRAcetam 500 MG/5 ML UDCUP PO SCH ×2 (07:45→21:11)
[2018-02-09] MEDS: FAMOTIDINE 20 MG TAB PO SCH (07:45)
[2018-02-09] MEDS ORDERED: PROTOCOL POTASSIUM 1 DOSE MISC PRN (09:52)
[2018-02-09] MEDS: traMADol 50 MG TAB PO PRN ×2 (10:49→21:13)
--- NOTE | 2018-02-09 10:53 | SOAPPROG ---
SOAP Progress Note Assessment/Plan: Assessment: 72 yo F with left sided SDH, right tentorial subdural hematoma and cerebellar hematoma, POD #5 EVD placement and suboccipital craniotomy for evacuation of hemorrhage. Plan: neuro: stable and improved this overall. still episodes of agitation and somnolnence. Head CT 02/04 with good evacuation of cerebellum and improved and hydrocephalus. EVD in good position. keep ventric clamped at 20mmhg, working on weaning EVD, will check head CT in am po meds to keep SBP < 150 mmhg scd/kellie for dvt prophylaxis continue keppra at 750 mg po/iv bid Na 1348 this am appreciate Medicine help with medical issues. patient will likely need inpatient rehab PT/OT/ST hard collar until mentation improves please call with neuro changes Discussed with Dr Whelan 02/02/18 14:45 02/02/18 20:50 02/02/18 20:53 02/03/18 07:11 02/04/18 02:55 02/04/18 10:01 02/05/18 07:13 02/07/18 09:18 02/08/18 06:47 02/09/18 10:52 Subjective: no headaches, no N/V. More awake today Objective: Vital Signs Temp Pulse Resp BP Pulse Ox 35.8 C L 72 16 138/70 H 98 02/09/18 08:00 02/09/18 10:00 02/09/18 10:00 02/09/18 10:00 02/09/18 10:00 Laboratory Results 02/07/18 04:10 02/09/18 05:00 02/08/18 02/09/18 02/10/18 05:59 05:59 05:59 Intake Total 1503 3612 860 Output Total 3726 1500 350 Balance -2223 2112 510 PT 15.1 SEC (12.0-15.0) H 02/04/18 00:15 INR 1.17 (0.83-1.16) H 02/04/18 00:15 AAOx4, +FC PERRL, EOMI JAVID x4 + light touch C/D/I ICD10 Worksheet Patient Problems: Problems Problem Status Onset Fracture of occipital bone of skull with loss of consciousness Acute Grand mal seizure Acute Subdural hematoma Acute Syncope Acute Traumatic subarachnoid hemorrhage Acute
[2018-02-09] MEDS: SENNOSIDES/DOCUSATE SODIUM TAB PO SCH (11:06)
--- NOTE | 2018-02-09 11:12 | PDINTPN ---
Phonograph Mechanic Progress Note Assessment/Plan: Assessment/plan: 72 F admited 02/03 after unwitnessed fall of about 6 feet with syncope, found to have SDH/intraparenchymal hemorrhage who was monitored initially, but deteriorated requiring craniectomy with evacuation of blood, partial cerebellar lobectomy, and EVD placement. She remained intubated overnight but had excellent AM parameters and was extubated 02/04. * Traumatic ICH- s/p above procedure with relative stability. BP parameters now SBP<160, Na 140-150. Remains in C collar until cleared by surgery. Her ICP is 8 -9 despite increasing her EVD to 20 * Seizure- 2/ #1. No further seizure activity noted at [facility] on Keppra * Acute respiratory failure with hypoxia. Extubated without difficulty * Altered MS- she was quite agitated preop and has fluctuated since. Consider Haldol/Zyprexa over narcotics since this has resulted in somnolence 02/08. Much clearer today. * Hypokalemia- protocol started and replaced * OK for floor 02/09/18 11:11 Subjective: no events Objective: Vital Signs Temp Pulse Resp BP Pulse Ox 35.8 C L 72 16 138/70 H 98 02/09/18 08:00 02/09/18 10:00 02/09/18 10:00 02/09/18 10:00 02/09/18 10:00 Laboratory Results 02/07/18 04:10 02/09/18 05:00 02/08/18 02/09/18 02/10/18 05:59 05:59 05:59 Intake Total 1503 3612 860 Output Total 3726 1500 350 Balance -2223 2112 510 PT 15.1 SEC (12.0-15.0) H 02/04/18 00:15 INR 1.17 (0.83-1.16) H 02/04/18 00:15 Physical Exam - Physical Exam General Appearance: alert, no apparent distress EENT: PERRL/EOMI Neck: other Respiratory: lungs clear, normal breath sounds, decreased breath sounds, No respiratory distress, No accessory muscle use Cardiac/Chest: regular rate, rhythm, No edema Abdomen: non-tender, soft, No distended Skin: normal color, warm/dry, No cyanosis Lymphatic: no adenopathy Extremities: No pedal edema Neuro/Psych: alert, normal mood/affect, cognition abnormalities ICD10 Worksheet Patient Problems: Problems Problem Status Onset Fracture of occipital bone of skull with loss of consciousness Acute Grand mal seizure Acute Subdural hematoma Acute Syncope Acute Traumatic subarachnoid hemorrhage Acute
--- NOTE | 2018-02-09 14:30 | HOSPPROG ---
Hospitalist Progress Note Assessment/Plan: 72 yo F presenting s/p fall with SDH/IPH * SDH/IP hemorrhage - traumatic -status post cerebellar hematoma evacuation and partial cerebellar lobectomy , goal sbp now liberalized to less than 160--bp remains mildly elevated but lower than usual * Cerebral edema -off of 3%, Na wnl * Occipital bone fracture * Head lac -sutures/waldemar placed in ER * Syncope vs mechanical fall -ECHO/tele negative, pt/ot to be involved * Seizure - Keppra, no recurrence thus far * Encephalopathy -mental status slowly improving * Dysphagia -cleared by speech today * C-spine -continue collar until mental status improves * EKG changes -suspect TWI due to increased intra-cranial pressure -troponin negative Care plan reviewed with Dr. Perez on multidisciplinary care team on rounds. Further hx obtained from patients present at bedside. Subjective: no significant overnight events, patient more interactive and appropriate today Objective: Vital Signs Temp Pulse Resp BP Pulse Ox 36.8 C 80 14 151/71 H 97 02/09/18 12:00 02/09/18 14:00 02/09/18 14:00 02/09/18 14:00 02/09/18 14:00 Laboratory Results 02/07/18 04:10 02/09/18 05:00 02/08/18 02/09/18 02/10/18 05:59 05:59 05:59 Intake Total 1503 3612 860 Output Total 3726 1500 700 Balance -2223 2112 160 PT 15.1 SEC (12.0-15.0) H 02/04/18 00:15 INR 1.17 (0.83-1.16) H 02/04/18 00:15 somnolent, arousable but minimally interactive anicteric, bilateral ecchymoses around eyes oriented somnolent tangential - Time Spent With Patient Time Spent with Patient: greater than 35 minutes Time Spent with Patient: Greater than 35 minutes spent on this patients care, greater than 50% of time spent counseling, educating, and coordinating care regarding the above mentioned plan. ICD10 Worksheet Patient Problems: Problems Problem Status Onset Fracture of occipital bone of skull with loss of consciousness Acute Grand mal seizure Acute Subdural hematoma Acute Syncope Acute Traumatic subarachnoid hemorrhage Acute
[2018-02-10] MEDS: ACETAMINOPHEN 325 MG TAB PO PRN ×3 (05:16→17:29)
[2018-02-10] MEDS ORDERED: POTASSIUM CL 10 MEQ TAB PO ONE (08:23)
--- NOTE | 2018-02-10 08:45 | SOAPPROG ---
SOAP Progress Note Assessment/Plan: Assessment: 72 yo F with left sided SDH, right tentorial subdural hematoma and cerebellar hematoma, POD #6 EVD placement and suboccipital craniotomy for evacuation of hemorrhage. Plan: neuro: stable and improved this overall. still episodes of agitation and somnolnence. Head CT 02/09 shows no hydrocephalus, slow evolution/improvement of hemorrhages will remove EVD today and keep in ICU overnight po meds to keep SBP < 150 mmhg scd/kellie for dvt prophylaxis continue keppra at 750 mg po/iv bid Na 130 this am, will add 3% back to drive Na higher. appreciate Medicine help with medical issues. patient will likely need inpatient rehab PT/OT/ST hard collar until mentation improves please call with neuro changes Discussed with Dr Bryant 02/02/18 14:45 02/02/18 20:50 02/02/18 20:53 02/03/18 07:11 02/04/18 02:55 02/04/18 10:01 02/05/18 07:13 02/07/18 09:18 02/08/18 06:47 02/09/18 10:52 02/10/18 08:42 02/10/18 15:11 Subjective: continued mild headaches, no N/V. No weakness. Objective: Vital Signs Temp Pulse Resp BP Pulse Ox 36.6 C 74 18 127/87 H 96 02/10/18 08:00 02/10/18 08:00 02/10/18 08:00 02/10/18 08:00 02/10/18 08:00 Laboratory Results 02/07/18 04:10 02/10/18 06:40 02/09/18 02/10/18 02/11/18 05:59 05:59 05:59 Intake Total 3612 1650 Output Total 1500 1250 300 Balance 2112 400 -300 PT 15.1 SEC (12.0-15.0) H 02/04/18 00:15 INR 1.17 (0.83-1.16) H 02/04/18 00:15 somlolnet but opens eyes to voice Oriented to name, place, location, year PERRL, no facial droop, EOMI JAVID x 4 + light touch C/D/I ICD10 Worksheet Patient Problems: Problems Problem Status Onset Fracture of occipital bone of skull with loss of consciousness Acute Grand mal seizure Acute Subdural hematoma Acute Syncope Acute Traumatic subarachnoid hemorrhage Acute
[2018-02-10] MEDS ORDERED: LIDOCAINE 1% 300 MG/30 ML SDV ONE (08:53)
[2018-02-10] MEDS: levETIRAcetam 500 MG/5 ML UDCUP PO SCH ×2 (09:21→20:16)
[2018-02-10] MEDS ORDERED: SODIUM Cl 3% 500 ML IV SCH (09:30)
[2018-02-10] MEDS: traMADol 50 MG TAB PO PRN (11:01)
[2018-02-10] MEDS ORDERED: hydrALAZINE 20 MG/ML VIAL IVP PRN (11:30)
[2018-02-10] MEDS ORDERED: oxyCODONE IR 5 MG TAB PO ONE (11:33)
--- NOTE | 2018-02-10 12:58 | ASMTCMCOM ---
CM Note CM Note Notes: Drain to come out today, sodium still low, the thought in ICU Rounds was that patient would go to [facility] after ICU then to [facility] in a few days. Date Signed: 02/10/2018 12:56 PM Electronically Signed By:Estella Tay LCSW
--- NOTE | 2018-02-10 13:17 | HOSPPROG ---
Hospitalist Progress Note Assessment/Plan: 72 yo F presenting s/p fall with SDH/IPH * SDH/IP hemorrhage - traumatic -status post cerebellar hematoma evacuation and partial cerebellar lobectomy , goal sbp now liberalized to less than 160--bp has trended up over the last 24 hours--this is in the setting of increased pain, hydralazine prn ordered but if bp remains high will need to add scheduled oral bp med * Cerebral edema Na has decreased again and plan to resume 3% saline per nsg to drive Na back up * Occipital bone fracture * Head lac -sutures/waldemar placed in ER--these will be ready to be removed in coming days--02/11 will be day 10 * Syncope vs mechanical fall -ECHO/tele negative, pt/ot to be involved * Seizure - Keppra, no recurrence thus far * Encephalopathy -mental status slowly improving * Dysphagia -cleared by speech for regular diet, eating more every day * C-spine -continue collar until mental status improves--NSG aware and following * EKG changes -suspect TWI due to increased intra-cranial pressure -troponin negative Care plan reviewed with Dr. Butcher on multidisciplinary care team on rounds. Further hx obtained from patients present at bedside. Subjective: no significant overnight events, patient currently doing a bit better but headache remains severe, bp has trended up Objective: Vital Signs Temp Pulse Resp BP Pulse Ox 36.6 C 73 16 133/77 H 95 02/10/18 08:00 02/10/18 12:00 02/10/18 12:00 02/10/18 12:00 02/10/18 12:00 Laboratory Results 02/07/18 04:10 02/10/18 06:40 02/09/18 02/10/18 02/11/18 05:59 05:59 05:59 Intake Total 3612 1650 Output Total 1500 1250 850 Balance 2112 400 -850 PT 15.1 SEC (12.0-15.0) H 02/04/18 00:15 INR 1.17 (0.83-1.16) H 02/04/18 00:15 somnolent, arousable but minimally interactive anicteric, bilateral ecchymoses around eyes oriented somnolent tangential - Time Spent With Patient Time Spent with Patient: greater than 35 minutes Time Spent with Patient: Greater than 35 minutes spent on this patients care, greater than 50% of time spent counseling, educating, and coordinating care regarding the above mentioned plan. ICD10 Worksheet Patient Problems: Problems Problem Status Onset Fracture of occipital bone of skull with loss of consciousness Acute Grand mal seizure Acute Subdural hematoma Acute Syncope Acute Traumatic subarachnoid hemorrhage Acute
--- NOTE | 2018-02-10 15:59 | PDINTPN ---
Residential Supervisor Progress Note Assessment/Plan: Assessment/Plan: 72 F admited 02/03 after unwitnessed fall of about 6 feet with syncope, found to have skull fracture, SDH/intraparenchymal hemorrhage who was monitored initially , but deteriorated requiring craniectomy with evacuation of blood, partial cerebellar lobectomy, and EVD placement. She remained intubated overnight but had excellent AM parameters and was extubated 02/04. Has had altered mental status with slow improvement. * Traumatic ICH- s/p above procedure with relative stability. BP parameters now SBP<160, Na 140-150. Remains in C collar until cleared by surgery. Her ICP is 8 -9 despite increasing her EVD to 20 * Seizure- 2/2 #1. No further seizure activity noted at [facility] - on Keppra * Acute respiratory failure with hypoxia. Extubated, resolved * Altered MS- fluctuating, improving slowly. Narcotics have resulted in somnolence 02/08. Overall clearer. * Hypokalemia- on replacement protocol * Hyponatremia. Back on 3% saline. Will add Florinef. Continue care in the intensive care unit. Follow sodium, laboratory. Add Florinef. Continue hypertonic saline. Monitor blood pressure and neurologic status. 30 min of critical care time spent directly with the patient. Discussed with the patient's , neuro surgery, nursing, the ICU multi disciplinary team per Objective: Vital Signs Temp Pulse Resp BP Pulse Ox 36.5 C 76 18 143/71 H 93 02/10/18 14:00 02/10/18 14:00 02/10/18 14:00 02/10/18 14:00 02/10/18 14:00 Laboratory Results 02/07/18 04:10 02/10/18 14:20 02/09/18 02/10/18 02/11/18 05:59 05:59 05:59 Intake Total 3612 1650 Output Total 1500 1250 1050 Balance 2112 400 -1050 PT 15.1 SEC (12.0-15.0) H 02/04/18 00:15 INR 1.17 (0.83-1.16) H 02/04/18 00:15 ICD10 Worksheet Patient Problems: Problems Problem Status Onset Traumatic subarachnoid hemorrhage Acute Fracture of occipital bone of skull with loss of consciousness Acute Syncope Acute Subdural hematoma Acute Grand mal seizure Acute
[2018-02-10] MEDS: FLUDROCORTISONE ACETATE 0.1 MG TAB PO SCH (17:36)
[2018-02-10] MEDS: oxyCODONE IR 5 MG TAB PO PRN (20:16)
[2018-02-11] MEDS: traMADol 50 MG TAB PO PRN ×2 (02:15→16:42)
[2018-02-11] MEDS: hydrALAZINE 20 MG/ML VIAL IVP PRN (04:18)
[2018-02-11] MEDS: oxyCODONE IR 5 MG TAB PO PRN ×2 (04:49→18:34)
[2018-02-11] MEDS: niCARdipine/NACL 200 ML IV SCH ×2 (06:08→10:29)
[2018-02-11] MEDS ORDERED: LIDOCAINE 1% 5 ML SDV ONE (06:26)
[2018-02-11] MEDS ORDERED: LIDOCAINE 1% 5 ML SDV IF ONE (06:45)
--- NOTE | 2018-02-11 07:08 | POSTOPPROG ---
Post Op Note Date of Operation: 02/11/18 Surgeon: Judson Downs Anesthesia: Local (Specify) (3cc 1% lidocaine) Pre-op Diagnosis: Scalp laceration (2cm) Post-op Diagnosis: Scalp laceration (2cm) Indication: Scalp laceration (2cm) Procedure: Repair ( simple) 2cm scalp laceration Findings: Scalp laceration (2cm) Inf/Abcess present in the surg proc area at time of surgery?: No EBL: Minimal Total fluids administered: none Complications: none Specimen(s): none
--- NOTE | 2018-02-11 07:24 | GOP ---
[f rep st] OPERATIVE REPORT DATE OF OPERATION: 02/11/2018 SURGEON: Judson Downs MD PREOPERATIVE DIAGNOSIS: Right scalp laceration. Apparently the patient got out of bed and fell, hitting her head on the floor. She has been evaluated by CAT scan and no other findings were identified. I was asked to come and address the wound. POSTOPERATIVE DIAGNOSIS: A 2 cm scalp laceration, left posterior parietal region. PROCEDURE PERFORMED: Debridement of wound with suture closure. FINDINGS: A 2 cm left posterior parietal scalp laceration. INDICATIONS: A 2 cm left posterior parietal scalp laceration. DESCRIPTION OF PROCEDURE: The patient is in bed on her right side. The hair is carefully trimmed around the laceration. Approximately 5 cc of clot is carefully expressed. The wound was prepped with Betadine and a sterile field developed. Saline was used to irrigate the wound. There was no obvious bleeding at this point as pressure has been held for 15 minutes. The skin was anesthetized with 1% Xylocaine. Two vertical mattress sutures of #2-0 silk were placed to obliterate the space. This resulted in excellent closure. A sterile dressing was applied. A Nirali bandage was used to hold the sterile dressing in place. The patient tolerated the procedure well. I recommend removing the sutures on 02/19 /[id number]/MODL MTDD
[2018-02-11] MEDS ORDERED: POTASSIUM Cl (KCl) 50 ML IV SCH (07:38)
[2018-02-11] MEDS ORDERED: POTASSIUM CL 20 MEQ/15 ML UDCUP PO ONE (08:00)
[2018-02-11] MEDS ORDERED: ceFAZolin 2 GM/DEXTROSE 100 ML IV ONE (08:00)
--- NOTE | 2018-02-11 10:06 | SOAPPROG ---
SOAP Progress Note Assessment/Plan: Assessment: 72 yo F with left sided SDH, right tentorial subdural hematoma and cerebellar hematoma, POD #7 EVD placement and suboccipital craniotomy for evacuation of hemorrhage. Plan: neuro: stable and doing well overall. Fall last night with no evidence of hemorrhage on CT this am. Head CT 02/11 shows no hydrocephalus, slow evolution/improvement of hemorrhages, no acute hemorrhage head laceration repaired by Dr Poole EBD removed on 02/10, no issues since po meds to keep SBP < 160 mmhg cervical spine flexion/extension views do not show evidence of translational listhesis, will remove hard collar later today scd/kellie for dvt prophylaxis continue keppra at 750 mg po/iv bid Na 142 this am, on 3% percent, may be salt wasting appreciate Medicine help with medical issues. patient will likely need inpatient rehab PT/OT/ST please call with neuro changes Discussed with Dr Bryant 02/02/18 14:45 02/02/18 20:50 02/02/18 20:53 02/03/18 07:11 02/04/18 02:55 02/04/18 10:01 02/05/18 07:13 02/07/18 09:18 02/08/18 06:47 02/09/18 10:52 02/10/18 08:42 02/10/18 15:11 02/11/18 10:02 Subjective: patient fell last night with head laceration, continued headaches, no N/V. No weakness. Objective: Vital Signs Temp Pulse Resp BP Pulse Ox 36.6 C 86 22 H 148/63 H 92 02/11/18 08:00 02/11/18 08:00 02/11/18 08:00 02/11/18 08:00 02/11/18 08:00 Laboratory Results 02/07/18 04:10 02/11/18 08:14 02/10/18 02/11/18 02/12/18 05:59 05:59 05:59 Intake Total 1650 1255 Output Total 1250 1725 525 Balance 400 -470 -525 PT 15.1 SEC (12.0-15.0) H 02/04/18 00:15 INR 1.17 (0.83-1.16) H 02/04/18 00:15 Awake, alert, oriented to name, place, year PERRL, EOMI, no facial droop JAVID x 4 + light touch C/D/I ICD10 Worksheet Patient Problems: Problems Problem Status Onset Fracture of occipital bone of skull with loss of consciousness Acute Grand mal seizure Acute Subdural hematoma Acute Syncope Acute Traumatic subarachnoid hemorrhage Acute
[2018-02-11] MEDS: levETIRAcetam 500 MG/5 ML UDCUP PO SCH ×2 (10:29→19:57)
[2018-02-11] MEDS: ACETAMINOPHEN 325 MG TAB PO PRN ×2 (10:30→15:07)
[2018-02-11] MEDS: FLUDROCORTISONE ACETATE 0.1 MG TAB PO SCH (14:18)
--- NOTE | 2018-02-11 14:40 | HOSPPROG ---
Hospitalist Progress Note Assessment/Plan: 72 yo F presenting s/p fall with SDH/IPH fall: suspect mechanical as no events on telemetry, previous syncope workup neg SDH/IP hemorrhage - traumatic -status post cerebellar hematoma evacuation and partial cerebellar lobectomy , goal sbp now liberalized to less than 160--bp has trended up over the last 24 hours--this is in the setting of increased pain, hydralazine prn ordered but if bp remains high will need to add scheduled oral bp med Cerebral edema Na has decreased again and plan to resume 3% saline per nsg to drive Na back up Na now 140's follow bid tachycardia: mostly exertional tsh OK euvolemic to slightly dry Occipital bone fracture Head lac -sutures/waldemar placed in ER--these will be ready to be removed in coming days--02/11 will be day 10 Syncope vs mechanical fall -ECHO/tele negative, pt/ot to be involvedSeizure - Keppra, no recurrence thus far Encephalopathy -mental status slowly improving Dysphagia -cleared by speech for regular diet, eating more every day C-spine -continue collar until mental status improves--NSG aware and following EKG changes -suspect TWI due to increased intra-cranial pressure -troponin negative Subjective: fall this AM. no events tele this AM (interp by me). case d.w dr sandhu Objective: Vital Signs Temp Pulse Resp BP Pulse Ox 36.7 C 103 H 19 141/46 H 98 02/11/18 12:30 02/11/18 14:00 02/11/18 14:00 02/11/18 14:00 02/11/18 14:00 Laboratory Results 02/07/18 04:10 02/11/18 08:14 02/10/18 02/11/18 02/12/18 05:59 05:59 05:59 Intake Total 1650 1255 Output Total 1250 1725 1025 Balance 400 -470 -1025 PT 15.1 SEC (12.0-15.0) H 02/04/18 00:15 INR 1.17 (0.83-1.16) H 02/04/18 00:15 - Physical Exam Constitutional: no apparent distress, appears nourished Eyes: PERRL, anicteric sclera Ears, Nose, Mouth, Throat: moist mucous membranes, hearing normal Cardiovascular: no murmur, rub, or gallop, tachycardia Respiratory: no respiratory distress, no rales or rhonchi Gastrointestinal: normoactive bowel sounds, soft, non-tender abdomen Genitourinary: no bladder fullness, No luna in urethra Skin: warm, normal color Musculoskeletal: full muscle strength Neurologic: No AAOx3 ICD10 Worksheet Patient Problems: Problems Problem Status Onset Fracture of occipital bone of skull with loss of consciousness Acute Grand mal seizure Acute Subdural hematoma Acute Syncope Acute Traumatic subarachnoid hemorrhage Acute
[2018-02-11] MEDS: NS W/ 20 KCl/L 1,000 ML IV SCH ×2 (15:08→19:58)
--- NOTE | 2018-02-11 15:50 | PDINTPN ---
Clinical Education Consultant Progress Note Assessment/Plan: Assessment/Plan: 72 F admited 02/03 after unwitnessed fall of about 6 feet with syncope, found to have skull fracture, SDH/intraparenchymal hemorrhage who was monitored initially , but deteriorated requiring craniectomy with evacuation of blood, partial cerebellar lobectomy, and EVD placement. She remained intubated overnight but had excellent AM parameters and was extubated 02/04. Has had altered mental status with slow improvement. * Traumatic ICH- s/p above procedure with relative stability. BP parameters now SBP<160, Na 140-150. C collar removed. * Hypertension: Blood pressure is up, on a nicardipine drip. * Seizure- 2/2 #1. No further seizure activity noted at [facility] - on Keppra * Acute respiratory failure with hypoxia. Extubated, resolved * Altered MS- fluctuating, improving slowly. Narcotics have resulted in somnolence 02/08. Overall clearer, but slow to progress. * Hypokalemia- on replacement protocol * Hyponatremia. On 3% saline, Florinef. * Fall: Fell early this morning striking head with a small laceration. Repaired by Dr. Downs. No neurologic changes. CT scan of the head unchanged. Continue care in the intensive care unit. Follow sodium, laboratory. Continue hypertonic saline and Florinef. Continue nicardipine for now. I will add lisinopril. Monitor blood pressure and neurologic status. 25 min of critical care time spent directly with the patient. Discussed with the patient's , neuro surgery, nursing, the ICU multi disciplinary team per Subjective: Up in the chair. Doing okay. Complains of headache. Remains restless, somewhat confused. Objective: Vital Signs Temp Pulse Resp BP Pulse Ox 36.7 C 103 H 19 141/46 H 98 02/11/18 12:30 02/11/18 14:00 02/11/18 14:00 02/11/18 14:00 02/11/18 14:00 Laboratory Results 02/07/18 04:10 02/11/18 15:17 02/10/18 02/11/18 02/12/18 05:59 05:59 05:59 Intake Total 1650 1255 Output Total 1250 1725 1025 Balance 400 -470 -1025 PT 15.1 SEC (12.0-15.0) H 02/04/18 00:15 INR 1.17 (0.83-1.16) H 02/04/18 00:15 Laboratory Tests 02/11/18 04:00 Sodium 142 Potassium 3.4 Chloride 107 Carbon Dioxide 24 Anion Gap 11 BUN 12 Creatinine 0.4 L Estimated GFR > 60 Glucose 127 H Calcium 8.3 L Physical Exam - Physical Exam General Appearance: other (Lethargic, arousable. Confused, restless.) EENT: other (Bilateral raccoon eyes. Head dressed. New laceration noted examined.) Neck: normal inspection (No JVD. Hard collar has been removed.) Respiratory: lungs clear, decreased breath sounds (At bases) Cardiac/Chest: regular rate, rhythm, tachycardia (Sinus) Abdomen: normal bowel sounds, non-tender, soft Pelvic Exam: other (Zaragoza catheter in place, good urine output.) Skin: warm/dry, pallor Extremities: No pedal edema Neuro/Psych: no motor/sensory deficits (Moves all extremities), cognition abnormalities (Oriented to person, restless) ICD10 Worksheet Patient Problems: Problems Problem Status Onset Traumatic subarachnoid hemorrhage Acute Fracture of occipital bone of skull with loss of consciousness Acute Syncope Acute Subdural hematoma Acute Grand mal seizure Acute
[2018-02-11] MEDS: LISINOPRIL 10 MG TAB PO SCH (17:49)
[2018-02-11] MEDS: POTASSIUM Cl (KCl) 50 ML IV SCH ×3 (20:57→23:03)
[2018-02-12] MEDS: oxyCODONE IR 5 MG TAB PO PRN (02:48)
[2018-02-12] MEDS: niCARdipine/NACL 200 ML IV SCH ×2 (02:48→07:30)
[2018-02-12] MEDS: traMADol 50 MG TAB PO PRN ×3 (07:02→19:31)
--- NOTE | 2018-02-12 07:53 | NEUSURGPN ---
Assessment/Plan: Assessment: 72 yo F with left sided SDH, right tentorial subdural hematoma and cerebellar hematoma, POD #7 EVD placement and suboccipital craniotomy for evacuation of hemorrhage. Plan: neuro: stable and doing well overall. Recent fall with no evidence of hemorrhage on post fall CT yesterday. Head CT 02/11 shows no hydrocephalus, slow evolution/improvement of hemorrhages, no acute hemorrhage head laceration repaired by Dr Poole EBD removed on 02/10, no issues since po meds to keep SBP < 160 mmhg cervical spine flexion/extension views do not show evidence of translational listhesis, have dc'd hard collar scd/kellie for dvt prophylaxis continue keppra at 750 mg po/iv bid Na 141 this am, off of 3% percent, on NS IVF appreciate Medicine help with medical issues. patient will likely need inpatient rehab Neuro checks - change to Q4 hours per Dr Bryant. Possibly transfer to floor tomorrow. Urinary incontinence - RN to d/w medicine on checking UA today. Per pt's she has hx of UTIs PT/OT/ST please call with neuro changes Discussed with Dr Bryant Subjective: Pt resting in bed, at bedside Objective: Awake and alert Per RN stated she was in the hospital, able to say name and . Pupils equal No droop bilateral orbital ecchymosis Follows all commands Motor 5/5 BUE/BLE Urinary Catheter in Place: No Catheter Insertion Date: 02/02/18 - Physician Discussed Patient with Dr.: Bryant Neurosurgery Physical Exam - Vitals, I&O, Labs I and O 02/11/18 02/12/18 02/13/18 05:59 05:59 05:59 Intake Total 1255 2244 Output Total 1725 1125 Balance -470 1119 Intake: Oral (ml) 540 120 IV Infused (ml) 715 2124 NS W/ 20 KCl/L 1,000 ml @ 1475 100 mls/hr IV CONT NASREEN Rx#:[id number] SODIUM Cl 3% 500 ml @ 20 715 185 mls/hr IV CONT NASREEN Rx#: [id number] niCARdipine/NACL 200 ml @ 464 Titrate IV CONT NASREEN Rx#: [id number] Output: Urine (ml) 1725 1125 Bedside Commode 500 775 Toilet 1225 350 CSF Drainage Amount 0 Left Ventriculostomy 0 Other: Intake Quantity Yes Sufficient Number of Voids Bedside Commode 1 1 Incontinence 1 Toilet 1 1 Vital Signs Temp Pulse Resp BP Pulse Ox 36.6 C 90 21 H 155/70 H 96 02/12/18 00:00 02/12/18 07:00 02/12/18 07:00 02/12/18 07:00 02/12/18 07:00 Laboratory Results 02/12/18 05:50 02/12/18 05:50 ICD10 Worksheet Patient Problems: Problems Problem Status Onset Fracture of occipital bone of skull with loss of consciousness Acute Grand mal seizure Acute Subdural hematoma Acute Syncope Acute Traumatic subarachnoid hemorrhage Acute
[2018-02-12] MEDS: ACETAMINOPHEN 325 MG TAB PO PRN ×3 (08:02→17:29)
[2018-02-12] MEDS: LISINOPRIL 10 MG TAB PO SCH (08:02)
[2018-02-12] MEDS: levETIRAcetam 500 MG/5 ML UDCUP PO SCH ×2 (08:02→21:45)
[2018-02-12] MEDS ORDERED: POTASSIUM CL 10 MEQ TAB PO ONE ×2 (08:17→19:11)
[2018-02-12] MEDS: POLYETHYLENE GLYCOL 3350 17 GM PKT PO SCH (09:25)
[2018-02-12] MEDS: FLUDROCORTISONE ACETATE 0.1 MG TAB PO SCH (10:03)
[2018-02-12] MEDS: NS W/ 20 KCl/L 1,000 ML IV SCH (11:09)
[2018-02-12] MEDS: METOPROLOL TARTRATE 25 MG TAB PO SCH ×2 (11:10→21:44)
--- NOTE | 2018-02-12 13:52 | PDINTPN ---
Exercise Planner Progress Note Assessment/Plan: Assessment/Plan: 72 F admited 02/03 after unwitnessed fall of about 6 feet with syncope, found to have skull fracture, SDH/intraparenchymal hemorrhage who was monitored initially , but deteriorated requiring craniectomy with evacuation of blood, partial cerebellar lobectomy, and EVD placement. She remained intubated overnight but had excellent AM parameters and was extubated 02/04. Has had altered mental status with slow improvement. * Traumatic ICH- s/p above procedure with relative stability. BP parameters now SBP<160, Na 140-150. C collar removed. * Hypertension: Blood pressure is up, on a nicardipine drip. On lisinopril. Will add metoprolol. * Seizure- 2/ #1. No further seizure activity noted at [facility] - on Keppra * Acute respiratory failure with hypoxia. Extubated, resolved * Altered MS- fluctuating, improving slowly. Multifactorial, mostly related to her original trauma but medications, recent fall and possible concussion, and other factors certainly contributing. * Hypokalemia- on replacement protocol * Hyponatremia. Was on 3% saline, currently off. On Florinef. * Fall: Fell early 02/11 striking head with a small laceration. Repaired by Dr. Downs. No obvious neurologic changes but her feels she has had more pain, more photophobia, and more lethargy since. CT scan of the head unchanged. Neuro surgery continues to follow. * Probable UTI: Patient has a history of recurrent urinary tract infections. No Zaragoza in place. Will start Cipro per request of the patient's . Continue care in the intensive care unit. Follow sodium, laboratory. Continue Florinef, restart 3% saline if needed. Continue nicardipine to maintain systolic less than 160. I will increase lisinopril and add low-dose metoprolol. Continue Keppra. Start Cipro. Mobilize as tolerated. Avoid sedatives and narcotics as much as possible. Monitor blood pressure and neurologic status. 35 min of critical care time spent directly with the patient. Discussed with the patient's , hospitalist, nursing, the ICU multi disciplinary team. Subjective: Somnolent, tries to respond. Difficult to understand soft responses. Appears to be oriented to person and hospital. Complains of pain but somewhat nonlocalizing. Probably headache. Worse with exposure to light. Objective: Vital Signs Temp Pulse Resp BP Pulse Ox 36.9 C 87 18 131/57 H 99 02/12/18 08:00 02/12/18 12:00 02/12/18 12:00 02/12/18 12:00 02/12/18 12:00 Laboratory Results 02/12/18 05:50 02/12/18 05:50 02/11/18 02/12/18 02/13/18 05:59 05:59 05:59 Intake Total 1255 2244 Output Total 1725 1125 200 Balance -470 1119 -200 PT 15.1 SEC (12.0-15.0) H 02/04/18 00:15 INR 1.17 (0.83-1.16) H 02/04/18 00:15 h Physical Exam - Physical Exam General Appearance: no apparent distress, other (Somnolent, up in chairs), No alert EENT: other (Bilateral raccoon eyes. Head dressed. On room air.) Neck: normal inspection (No JVD) Respiratory: lungs clear, decreased breath sounds (At bases) Cardiac/Chest: regular rate, rhythm (Occasionally gets tachycardic) Abdomen: normal bowel sounds, non-tender, soft, other (Eating meals with assistance) Skin: normal color, warm/dry Extremities: pedal edema (Trace) Neuro/Psych: no motor/sensory deficits (Moves all extremities equally), cognition abnormalities (About the same. Her thinks she has been more sedated since her fall 2 nights ago.) ICD10 Worksheet Patient Problems: Problems Problem Status Onset Fracture of occipital bone of skull with loss of consciousness Acute Grand mal seizure Acute Subdural hematoma Acute Syncope Acute Traumatic subarachnoid hemorrhage Acute
--- NOTE | 2018-02-12 14:08 | ASMTCMCOM ---
CM Note CM Note Notes: Family meeting was held today with Yessy RN Director, Chaplain Perkins Bethany, Case Management, Social Work, and patient's Dc. Dc was interested in the next steps of care from d/c. Reviewed the 3 possibilities which are inpatient rehab, SNF rehab or Home Health care. Dc is hoping patient will be able to do inpatient rehab. Dc was given information on SNF's so he can research them and choose if in fact patient needs that level of care at d/c. He was also given an informational packet on [facility] inpatient rehab. CM will follow. Date Signed: 02/12/2018 02:07 PM Electronically Signed By:Josie Montes LCSW
[2018-02-12] MEDS: CIPROFLOXACIN 250 MG TAB PO SCH ×2 (15:22→21:43)
[2018-02-12] MEDS ORDERED: oxyCODONE IR 5 MG TAB PO PRN (16:37)
--- NOTE | 2018-02-12 16:39 | HOSPPROG ---
Hospitalist Progress Note Assessment/Plan: 72 yo F presenting s/p fall with SDH/IPH fall: suspect mechanical as no events on telemetry, previous syncope workup neg SDH/IP hemorrhage - traumatic -status post cerebellar hematoma evacuation and partial cerebellar lobectomy , goal sbp now liberalized to less than 160--bp has trended up over the last 24 hours--this is in the setting of increased pain, hydralazine prn ordered but if bp remains high will need to add scheduled oral bp med Cerebral edema Na has decreased again and plan to resume 3% saline per nsg to drive Na back up Na now 140's follow bid tachycardia: mostly exertional tsh OK euvolemic to slightly dry Occipital bone fracture Head lac -sutures/waldemar placed in ER--these will be ready to be removed in coming days--02/11 will be day 10 Syncope vs mechanical fall -ECHO/tele negative, pt/ot to be involvedSeizure - Keppra, no recurrence thus far Encephalopathy -mental status slowly improving uti noted cipro started h/o garcia sens e coli limit meds Dysphagia -cleared by speech for regular diet, eating more every day C-spine -continue collar until mental status improves--NSG aware and following EKG changes -suspect TWI due to increased intra-cranial pressure -troponin negative Subjective: w concern that she is somnolent. case d/w dr sandhu Objective: Vital Signs Temp Pulse Resp BP Pulse Ox 36.9 C 74 16 152/56 H 98 02/12/18 08:00 02/12/18 16:00 02/12/18 16:00 02/12/18 16:00 02/12/18 16:00 Laboratory Results 02/12/18 05:50 02/12/18 05:50 02/11/18 02/12/18 02/13/18 05:59 05:59 05:59 Intake Total 1255 2244 Output Total 1725 1125 200 Balance -470 1119 -200 PT 15.1 SEC (12.0-15.0) H 02/04/18 00:15 INR 1.17 (0.83-1.16) H 02/04/18 00:15 - Physical Exam Constitutional: no apparent distress Eyes: PERRL, anicteric sclera Ears, Nose, Mouth, Throat: moist mucous membranes, hearing normal Cardiovascular: regular rate and rhythym, no murmur, rub, or gallop Respiratory: no respiratory distress, no rales or rhonchi Gastrointestinal: normoactive bowel sounds, soft, non-tender abdomen Genitourinary: no bladder fullness, No luna in urethra Skin: warm, normal color Musculoskeletal: full muscle strength Neurologic: No AAOx3 ICD10 Worksheet Patient Problems: Problems Problem Status Onset Fracture of occipital bone of skull with loss of consciousness Acute Grand mal seizure Acute Subdural hematoma Acute Syncope Acute Traumatic subarachnoid hemorrhage Acute
[2018-02-13] MEDS: hydrALAZINE 20 MG/ML VIAL IVP PRN (01:10)
[2018-02-13] MEDS ORDERED: POTASSIUM CL 10 MEQ TAB PO ONE ×2 (07:21→20:07)
--- NOTE | 2018-02-13 07:57 | NEUSURGPN ---
Date of Surgery: 02/04/18 Post Op Day: 9 Assessment/Plan: Assessment: 72 yo F with left sided SDH, right tentorial subdural hematoma and cerebellar hematoma, POD #9 EVD placement and suboccipital craniotomy for evacuation of hemorrhage. Head CT 02/11 shows no hydrocephalus, slow evolution/improvement of hemorrhages, no acute hemorrhage Plan: neuro: stable and doing well overall. Recent fall with no evidence of hemorrhage on post fall CT on 02/11/18. head laceration repaired by Dr Downs EVD removed on 02/10, no issues since po meds to keep SBP < 160 mmhg, off nicardipine since 02/12/18 cervical spine flexion/extension views do not show evidence of translational listhesis, have dc'd hard collar scd/kellie for dvt prophylaxis continue keppra at 750 mg po/iv bid Na 140 this am, off of 3% percent, on NS IVF appreciate Medicine help with medical issues. patient will likely need inpatient rehab Neuro checks every 4 hours On Cipro for UTI PT/OT/ST please call with neuro changes, ok to transfer to the floor per neurosurgery if cleared by weapons specialist Discussed with Dr Bryant Subjective: No overnight issues. Objective: Opens eyes to command. Incision c/d/i Following commands, GARCIA Catheter Insertion Date: 02/02/18 - Physician Discussed Patient with : Annette Neurosurgery Physical Exam - Vitals, I&O, Labs I and O 02/12/18 02/13/18 02/14/18 05:59 05:59 05:59 Intake Total 2244 2660 Output Total 1125 2699 Balance 1119 -39 Intake: Oral (ml) 120 1000 IV Intake (ml) 1660 IV Infused (ml) 2124 NS W/ 20 KCl/L 1,000 ml @ 1475 100 mls/hr IV CONT NASREEN Rx#:[id number] SODIUM Cl 3% 500 ml @ 20 185 mls/hr IV CONT NASREEN Rx#: [id number] niCARdipine/NACL 200 ml @ 464 Titrate IV CONT NASREEN Rx#: [id number] Output: Urine (ml) 1125 2699 Bedside Commode 775 550 Catheter 2099 Toilet 350 50 Other: Number of Voids Bedside Commode 1 1 Incontinence 1 1 Toilet 1 1 Number of Stools Toilet 1 Vital Signs Temp Pulse Resp BP Pulse Ox 36.6 C 97 22 H 152/59 H 88 L 02/13/18 06:00 02/13/18 06:00 02/13/18 06:00 02/13/18 06:00 02/13/18 06:00 Laboratory Results 02/12/18 05:50 02/13/18 05:40 ICD10 Worksheet Patient Problems: Problems Problem Status Onset Fracture of occipital bone of skull with loss of consciousness Acute Grand mal seizure Acute Subdural hematoma Acute Syncope Acute Traumatic subarachnoid hemorrhage Acute
[2018-02-13] MEDS: LISINOPRIL 10 MG TAB PO SCH (08:12)
[2018-02-13] MEDS: METOPROLOL TARTRATE 25 MG TAB PO SCH ×2 (08:12→20:27)
[2018-02-13] MEDS: levETIRAcetam 500 MG/5 ML UDCUP PO SCH ×2 (08:13→20:27)
[2018-02-13] MEDS: FLUDROCORTISONE ACETATE 0.1 MG TAB PO SCH (08:13)
[2018-02-13] MEDS: traMADol 50 MG TAB PO PRN ×2 (09:57→17:59)
[2018-02-13] MEDS: POLYETHYLENE GLYCOL 3350 17 GM PKT PO SCH (09:59)
[2018-02-13] MEDS: ACETAMINOPHEN 325 MG TAB PO PRN (12:40)
[2018-02-13] MEDS: CIPROFLOXACIN 250 MG TAB PO SCH ×2 (12:41→20:27)
--- NOTE | 2018-02-13 13:59 | PDINTPN ---
Retail Representative Progress Note Assessment/Plan: Assessment/Plan: 72 F admited 02/03 after unwitnessed fall of about 6 feet with syncope, found to have skull fracture, SDH/intraparenchymal hemorrhage who was monitored initially , but deteriorated requiring craniectomy with evacuation of blood, partial cerebellar lobectomy, and EVD placement. She remained intubated overnight but had excellent AM parameters and was extubated 02/04. Fell in the ICU early in the morning on 02/11 with resultant small head lac which was sutured. CT scan without changes. Since admission she has had persistently altered mental status with slow improvement. * Traumatic ICH- s/p above procedure with relative stability. BP parameters now SBP<160, Na 140-150. C collar removed. * Hypertension: Blood pressure is up, on a nicardipine drip. On lisinopril. Will add metoprolol. * Seizure- 2/2 #1. No further seizure activity noted at [facility] - on Keppra * Acute respiratory failure with hypoxia. Extubated, resolved * Altered MS- fluctuating, improving slowly. Multifactorial, mostly related to her original trauma but medications, recent fall with possible concussion, and other factors certainly contributing. * Hypokalemia- on replacement protocol * Hyponatremia. Was on 3% saline, currently off. On Florinef. * Fall: Fell early 02/11 striking head with a small laceration. Repaired by Dr. Downs. No obvious neurologic changes but her feels she has had more pain, more photophobia, and more lethargy since. CT scan of the head unchanged. Neurosurgery continues to follow. * UTI: Patient has a history of recurrent urinary tract infections. No Zaragoza in place. On Cipro per request of the patient's . PsA on culture, sensitivities pending. Continue care in the intensive care unit. Follow sodium, laboratory. Continue Florinef, restart 3% saline if needed. Continue antihypertensives comma restart nicardipine to maintain systolic less than 160 if needed. Continue Keppra, Cipro. Await sensitivities on PsA. Mobilize as tolerated. Avoid sedatives and narcotics as much as possible. Monitor blood pressure and neurologic status. For family conference with therapies and nursing today. 35 min of critical care time spent directly with the patient. Discussed with the patient's and daughters, hospitalist, nursing, the ICU multi disciplinary team. Subjective: Plugman today, up in chair, eating. Eyes open. Less photophobia. Less headache. More responsive. Objective: Vital Signs Temp Pulse Resp BP Pulse Ox 36.5 C 74 20 124/70 H 99 02/13/18 12:28 02/13/18 12:28 02/13/18 12:28 02/13/18 12:28 02/13/18 12:28 Laboratory Results 02/12/18 05:50 02/13/18 05:40 02/12/18 02/13/18 02/14/18 05:59 05:59 05:59 Intake Total 2244 2660 Output Total 1125 2699 1550 Balance 1119 -39 -1550 PT 15.1 SEC (12.0-15.0) H 02/04/18 00:15 INR 1.17 (0.83-1.16) H 02/04/18 00:15 ICD10 Worksheet Patient Problems: Problems Problem Status Onset Traumatic subarachnoid hemorrhage Acute Fracture of occipital bone of skull with loss of consciousness Acute Syncope Acute Subdural hematoma Acute Grand mal seizure Acute
--- NOTE | 2018-02-13 14:48 | HOSPPROG ---
Hospitalist Progress Note Assessment/Plan: 72 yo F presenting s/p fall with SDH/IPH urinary retention: no culprit meds may need luna fall: suspect mechanical as no events on telemetry, previous syncope workup neg SDH/IP hemorrhage - traumatic -status post cerebellar hematoma evacuation and partial cerebellar lobectomy , goal sbp now liberalized to less than 160--bp has trended up over the last 24 hours--this is in the setting of increased pain, hydralazine prn ordered but if bp remains high will need to add scheduled oral bp med Cerebral edema Na has decreased again and plan to resume 3% saline per nsg to drive Na back up Na now 140's follow bid tachycardia: mostly exertional tsh OK euvolemic to slightly dry Occipital bone fracture Head lac -sutures/waldemar placed in ER--these will be ready to be removed in coming days--02/11 will be day 10 Syncope vs mechanical fall -ECHO/tele negative, pt/ot to be involvedSeizure - Keppra, no recurrence thus far Encephalopathy -mental status slowly improving uti noted cipro started h/o garcia sens e coli limit meds Dysphagia -cleared by speech for regular diet, eating more every day C-spine -continue collar until mental status improves--NSG aware and following EKG changes -suspect TWI due to increased intra-cranial pressure -troponin negative Subjective: case d/w dr sandhu. urinary retention Objective: Vital Signs Temp Pulse Resp BP Pulse Ox 36.5 C 74 20 124/70 H 99 02/13/18 12:28 02/13/18 12:28 02/13/18 12:28 02/13/18 12:28 02/13/18 12:28 Laboratory Results 02/12/18 05:50 02/13/18 05:40 02/12/18 02/13/18 02/14/18 05:59 05:59 05:59 Intake Total 2244 2660 Output Total 1125 3679 1550 Balance 1119 -39 -1550 PT 15.1 SEC (12.0-15.0) H 02/04/18 00:15 INR 1.17 (0.83-1.16) H 02/04/18 00:15 - Physical Exam Constitutional: no apparent distress, appears nourished Eyes: PERRL, anicteric sclera Ears, Nose, Mouth, Throat: moist mucous membranes, hearing normal Cardiovascular: regular rate and rhythym, no murmur, rub, or gallop Respiratory: no respiratory distress, no rales or rhonchi Gastrointestinal: normoactive bowel sounds, soft, non-tender abdomen Genitourinary: No no bladder fullness, No luna in urethra Skin: warm, normal color Musculoskeletal: full muscle strength ICD10 Worksheet Patient Problems: Problems Problem Status Onset Fracture of occipital bone of skull with loss of consciousness Acute Grand mal seizure Acute Subdural hematoma Acute Syncope Acute Traumatic subarachnoid hemorrhage Acute
--- NOTE | 2018-02-13 15:38 | ASMTCMCOM ---
CM Note CM Note Notes: An additional family meeting was held today including the patient's daughters Lori and Pat as well as her daughter in law, Silas and , Dc. The staff in attendance were Shruthi, TELEGRAPH REPEATER TECHNICIAN, Sherri, physical therapist, Yessy, RN director for ICU, and myself Josie MARIE, Social Work. The family had questions about next steps for their mother and wanted to hear what the options were and what the process is. This information was shared with them. Shruthi addressed questions about what interventions were ok for patient and how to communicate/challenge her over the next several days. Physical therapist Sherri was able to address their questions about [facility] re[facility] program vs. [facility] inpatient rehab program. (Sherri works for [facility] as well) The family wants patient to have the best and most challenging program for rehab. However, they also would like her to be in a facility closer to her friends and family so everyone can visit and support her.They will discuss the pros and cons and let us know their decision. A referral was made to [facility] at Dc's request.Daughter Lori wants to have a discussion about patient falling while here in the hospital and will coordinate with Yessy, Nurse Director to set that meeting up. CYNTHIA will follow. Date Signed: 02/13/2018 03:37 PM Electronically Signed By:Josie Montes LCSW
[2018-02-14 05:38] LABS: PLATELET COUNT 311 10^3/uL (150-400)
--- NOTE | 2018-02-14 06:02 | NEUSURGPN ---
Assessment/Plan: Assessment: 72 yo F with left sided SDH, right tentorial subdural hematoma and cerebellar hematoma, POD #10 EVD placement and suboccipital craniotomy for evacuation of hemorrhage. Head CT 02/11 shows no hydrocephalus, slow evolution/improvement of hemorrhages, no acute hemorrhage Plan: [facility] neuro: stable and doing well overall. Recent fall with no evidence of hemorrhage on post fall CT on 02/11/18. head laceration repaired by Dr Downs EVD removed on 02/10, no issues since po meds to keep SBP < 160 mmhg, off nicardipine since 02/12/18 cervical spine flexion/extension views do not show evidence of translational listhesis, have dc'd hard collar scd/kellie for dvt prophylaxis continue keppra at 750 mg po/iv bid Na 139 this am, off of 3% percent, on NS IVF appreciate Medicine help with medical issues. patient will likely need inpatient rehab Neuro checks every 4 hours On Cipro for UTI PT/OT/ST please call with neuro changes, ok to transfer to the floor per neurosurgery if cleared by core drier Discussed with Dr Bryant Subjective: Denies any new pain, resting comfortably Objective: NAD opens eyes to verbal command MAEx4 Incision and head laceration site c/d/i Catheter Insertion Date: 02/02/18 - Physician Discussed Patient with : Annette Neurosurgery Physical Exam - Vitals, I&O, Labs I and O 02/13/18 02/14/18 02/15/18 05:59 05:59 05:59 Intake Total 2660 99 Output Total 2699 2525 Balance -39 -2426 Intake: Oral (ml) 1000 99 IV Intake (ml) 1660 Output: Urine (ml) 2699 2525 Bedside Commode 550 Catheter 2099 2525 Toilet 50 Other: Output Comment Toilet very small ;1cm Number of Voids Bedside Commode 1 Incontinence 1 Toilet 1 Number of Stools Bedside Commode 1 Toilet 1 1 Bladder Scan Volume (ml) Toilet 525 Vital Signs Temp Pulse Resp BP Pulse Ox 37.0 C 71 20 131/60 H 96 02/14/18 04:00 02/14/18 04:00 02/14/18 04:00 02/14/18 04:00 02/14/18 04:00 Laboratory Results 02/14/18 05:05 02/14/18 05:05 ICD10 Worksheet Patient Problems: Problems Problem Status Onset Fracture of occipital bone of skull with loss of consciousness Acute Grand mal seizure Acute Subdural hematoma Acute Syncope Acute Traumatic subarachnoid hemorrhage Acute
[2018-02-14] MEDS: LISINOPRIL 10 MG TAB PO SCH (08:08)
[2018-02-14] MEDS: levETIRAcetam 500 MG/5 ML UDCUP PO SCH ×2 (08:08→20:07)
[2018-02-14] MEDS: traMADol 50 MG TAB PO PRN ×3 (08:08→23:36)
[2018-02-14] MEDS: CIPROFLOXACIN 250 MG TAB PO SCH ×2 (08:08→20:07)
[2018-02-14] MEDS: METOPROLOL TARTRATE 25 MG TAB PO SCH ×2 (08:08→20:24)
[2018-02-14] MEDS: FLUDROCORTISONE ACETATE 0.1 MG TAB PO SCH (08:08)
[2018-02-14] MEDS: POLYETHYLENE GLYCOL 3350 17 GM PKT PO SCH (08:09)
[2018-02-14] MEDS ORDERED: POTASSIUM CL 10 MEQ TAB PO ONE ×2 (08:45→19:17)
[2018-02-14] MEDS: ACETAMINOPHEN 325 MG TAB PO PRN ×2 (11:02→20:06)
--- NOTE | 2018-02-14 12:19 | ASMTCMCOM ---
CM Note CM Note Notes: Voicemail from [facility] admissions department from 02/13: they do not usually accept patients over age 65 but will have MD review the case. They'll be in touch Friday, 02/16. I communicated this to patient's Dc who understands. Date Signed: 02/14/2018 12:19 PM Electronically Signed By:Betsey Ruiz RN
--- NOTE | 2018-02-14 14:34 | HOSPPROG ---
Hospitalist Progress Note Assessment/Plan: 72-year-old woman admitted after an unwitnessed fall outside. She was found down by a bystander in her garden and was found to have a skull fracture, subdural hematoma/intraparenchymal hemorrhage. She was initially monitored in the ICU however after a deterioration required craniotomy with evacuation of blood partial cerebellar lobectomy and EVD placement. Postop she had been recovering well however fell in the ICU early in the morning 0530 with resultant small had laceration and CT scan without changes. She continues to have a very slow improvement. # traumatic subdural hematoma/intraparenchymal hemorrhage status post evacuation of blood and partial cerebellar lobectomy. * Blood pressure parameters for systolic less than 160 a sodium of 140-150 * Continue therapies with likely rehab post hospitalization, family decided on placement * Status post seizure secondary to above however none since, currently on Keppra * Encephalopathy likely secondary to head injury with slow resolution. Will need ongoing rehab post hospitalization # hypertension, continue to monitor on oral medications # hypokalemia on replacement # hyponatremia initially requiring 3% saline currently on Florinef # UTI, treated with Cipro for positive culture with Pseudomonas Subjective: pt new to me and chart reviewed. talked with family, no specific complaints except mild tai this am. very tire this pm Objective: Vital Signs Temp Pulse Resp BP Pulse Ox 36.5 C 84 18 145/82 H 97 02/14/18 12:00 02/14/18 12:00 02/14/18 12:00 02/14/18 12:00 02/14/18 12:00 Microbiology 02/12/18 11:10 Urine Culture - Final Urine,Clean Catch Pseudomonas Aeruginosa Gram Neg Chicho Lactose Knuckle Bender Two [place] Types Laboratory Results 02/14/18 05:05 02/14/18 05:05 02/13/18 02/14/18 02/15/18 05:59 05:59 05:59 Intake Total 2660 99 300 Output Total 2699 2525 Balance -39 -2426 300 PT 15.1 SEC (12.0-15.0) H 02/04/18 00:15 INR 1.17 (0.83-1.16) H 02/04/18 00:15 - Physical Exam Constitutional: other (lethargic but arousable) Eyes: anicteric sclera Ears, Nose, Mouth, Throat: moist mucous membranes Cardiovascular: regular rate and rhythym Respiratory: no respiratory distress Gastrointestinal: normoactive bowel sounds, soft, non-tender abdomen Genitourinary: no bladder fullness Skin: warm Musculoskeletal: abnormal gait, generalized weakness Neurologic: No AAOx3 Psychiatric: encephalopathic ICD10 Worksheet Patient Problems: Problems Problem Status Onset Traumatic subarachnoid hemorrhage Acute Fracture of occipital bone of skull with loss of consciousness Acute Syncope Acute Subdural hematoma Acute Grand mal seizure Acute
--- NOTE | 2018-02-14 15:19 | PDINTPN ---
Glaze Supervisor Progress Note Assessment/Plan: Assessment/Plan: 72 F admited 02/03 after unwitnessed fall of about 6 feet with syncope, found to have skull fracture, SDH/intraparenchymal hemorrhage who was monitored initially , but deteriorated requiring craniectomy with evacuation of blood, partial cerebellar lobectomy, and EVD placement. She remained intubated overnight but had excellent AM parameters and was extubated 02/04. Fell in the ICU early in the morning on 02/11 with resultant small head lac which was sutured. CT scan without changes. Since admission she has had persistently altered mental status with slow improvement. * Traumatic ICH- s/p above procedure with relative stability. BP parameters now SBP<160, Na 140-150. C collar removed. * Hypertension: Off nicardipine drip. On lisinopril and metoprolol. * Seizure- 2/2 #1. No further seizure activity noted at [facility] - on Keppra * Acute respiratory failure with hypoxia. Extubated, resolved * Altered MS- fluctuating, improving slowly. Multifactorial, mostly related to her original trauma but medications, fall with possible concussion, and other factors (UTI) certainly contributing. * Hypokalemia- on replacement protocol * Hyponatremia. Was on 3% saline, currently off. On Florinef. * Fall: Fell early 02/11 striking head with a small laceration. Repaired by Dr. Downs. No obvious neurologic changes but her felt she had more pain, more photophobia, and more lethargy after. CT scan of the head unchanged. Neurosurgery continues to follow. * UTI: Patient has a history of recurrent urinary tract infections. No Zaragoza in place. On Cipro per request of the patient's . PsA on culture, sensitivities pending. Continue care in the intensive care unit. Follow sodium, laboratory. Continue Florinef, restart 3% saline if needed. Continue antihypertensives, restart nicardipine to maintain systolic less than 160 if needed. Continue Keppra, Cipro (PsA sensitive). Increase mobilization as tolerated. Avoid sedatives and narcotics as much as possible. Monitor blood pressure and neurologic status. 30 min of critical care time spent directly with the patient. Discussed with the patient's and daughter, hospitalist, nursing, the ICU multi disciplinary team. 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 Walked in the [place] slowly with physical therapy. Objective: Vital Signs Temp Pulse Resp BP Pulse Ox 36.7 C 78 20 132/76 H 92 02/14/18 14:00 02/14/18 14:00 02/14/18 14:00 02/14/18 14:00 02/14/18 14:00 Microbiology 02/12/18 11:10 Urine Culture - Final Urine,Clean Catch Pseudomonas Aeruginosa Gram Neg Chicho Lactose Drill Runner Helper Two [place] Types Laboratory Results 02/14/18 05:05 02/14/18 05:05 02/13/18 02/14/18 02/15/18 05:59 05:59 05:59 Intake Total 2660 99 300 Output Total 2699 2525 Balance -39 -2426 300 PT 15.1 SEC (12.0-15.0) H 02/04/18 00:15 INR 1.17 (0.83-1.16) H 02/04/18 00:15 Physical Exam - Physical Exam General Appearance: mild distress (Secondary to headache), other (Sleepy at times, more awake at times) EENT: PERRL/EOMI, other (Evolving facial/periorbital ecchymoses) Neck: normal inspection (No JVD) Respiratory: lungs clear, decreased breath sounds (At bases) Cardiac/Chest: regular rate, rhythm, No gallop Abdomen: normal bowel sounds, non-tender, soft Pelvic Exam: other (Has required straight caths for urinary retention. 300 mL in bladder) Skin: warm/dry, pallor Extremities: No pedal edema Neuro/Psych: no motor/sensory deficits (Moves all extremities equally. Walked today), cognition abnormalities (Improving) ICD10 Worksheet Patient Problems: Problems Problem Status Onset Traumatic subarachnoid hemorrhage Acute Fracture of occipital bone of skull with loss of consciousness Acute Syncope Acute Subdural hematoma Acute Grand mal seizure Acute
[2018-02-15] MEDS: NS W/ 20 KCl/L 1,000 ML IV SCH ×2 (01:06→11:02)
[2018-02-15 06:19] LABS: PLATELET COUNT 364 10^3/uL (150-400)
--- NOTE | 2018-02-15 08:12 | NEUSURGPN ---
Assessment/Plan: Assessment: 72 yo F with left sided SDH, right tentorial subdural hematoma and cerebellar hematoma, POD #10 EVD placement and suboccipital craniotomy for evacuation of hemorrhage. Head CT 02/11 shows no hydrocephalus, slow evolution/improvement of hemorrhages, no acute hemorrhage Plan: [facility] neuro: stable and doing well overall. Recent fall with no evidence of hemorrhage on post fall CT on 02/11/18. head laceration repaired by Dr Downs EVD removed on 02/10, no issues since po meds to keep SBP < 160 mmhg, off nicardipine since 02/12/18 cervical spine flexion/extension views do not show evidence of translational listhesis, have dc'd hard collar scd/kellie for dvt prophylaxis continue keppra at 750 mg po/iv bid Na 138 this am, off of 3% percent, on NS IVF appreciate Medicine help with medical issues. Neuro checks every 4 hours PT/OT/ST please call with neuro changes, dispo planning Subjective: Denies any pain Objective: More alert and responsive this am. NAD opens eyes to verbal command HOLLYRJEIMY MAEx4 diffusely 4/5 throughout BUE and BLE Incision and head laceration site c/d/i Catheter Insertion Date: 02/14/18 - Physician Discussed Patient with : Annette Neurosurgery Physical Exam - Vitals, I&O, Labs I and O 02/14/18 02/15/18 02/16/18 05:59 05:59 05:59 Intake Total 99 1782 Output Total 2525 2510 Balance -2426 -728 Intake: Oral (ml) 99 950 IV Infused (ml) 832 NS W/ 20 KCl/L 1,000 ml @ 832 100 mls/hr IV CONT NASREEN Rx#:[id number] Output: Urine (ml) 2525 2510 Catheter 2525 2510 Other: Urine Specific [place] Catheter 2 Intake Quantity Yes Sufficient Output Comment Toilet very small ;1cm Up to BR Number of Voids Toilet 1 Number of Stools Bedside Commode 1 Toilet 1 1 Bladder Scan Volume (ml) Toilet 525 440 Microbiology 02/12/18 11:10 Urine Culture - Final Urine,Clean Catch Pseudomonas Aeruginosa Gram Neg Chicho Lactose Tool And Die Maker Level Five Two [place] Types Vital Signs Temp Pulse Resp BP Pulse Ox 36.8 C 80 20 136/65 H 95 02/15/18 08:00 02/15/18 08:00 02/15/18 08:00 02/15/18 08:00 02/15/18 08:00 Laboratory Results 02/15/18 05:50 02/15/18 05:50 ICD10 Worksheet Patient Problems: Problems Problem Status Onset Fracture of occipital bone of skull with loss of consciousness Acute Grand mal seizure Acute Subdural hematoma Acute Syncope Acute Traumatic subarachnoid hemorrhage Acute
[2018-02-15] MEDS: LISINOPRIL 10 MG TAB PO SCH (08:49)
[2018-02-15] MEDS: FLUDROCORTISONE ACETATE 0.1 MG TAB PO SCH (08:50)
[2018-02-15] MEDS: traMADol 50 MG TAB PO PRN ×2 (08:50→18:40)
[2018-02-15] MEDS: METOPROLOL TARTRATE 25 MG TAB PO SCH ×2 (08:50→21:31)
[2018-02-15] MEDS: levETIRAcetam 500 MG/5 ML UDCUP PO SCH ×2 (08:51→21:31)
[2018-02-15] MEDS: CIPROFLOXACIN 250 MG TAB PO SCH ×2 (10:55→21:31)
[2018-02-15] MEDS: POLYETHYLENE GLYCOL 3350 17 GM PKT PO SCH (10:59)
--- NOTE | 2018-02-15 11:08 | HOSPPROG ---
Hospitalist Progress Note Assessment/Plan: 72-year-old woman admitted after an unwitnessed fall outside. She was found down by a bystander in her garden and was found to have a skull fracture, subdural hematoma/intraparenchymal hemorrhage. She was initially monitored in the ICU however after a deterioration required craniotomy with evacuation of blood partial cerebellar lobectomy and EVD placement. Postop she had been recovering well however fell in the ICU early in the morning 0530 with resultant small had laceration and CT scan without changes. She continues to have a very slow improvement. # traumatic subdural hematoma/intraparenchymal hemorrhage status post evacuation of blood and partial cerebellar lobectomy. * Blood pressure parameters for systolic less than 160 a sodium of 140-150 * Continue therapies with likely rehab post hospitalization, family decided on placement * Status post seizure secondary to above however none since, currently on Keppra * Encephalopathy likely secondary to head injury with slow resolution. Will need ongoing rehab post hospitalization # hypertension, continue to monitor on oral medications # hypokalemia on replacement # hyponatremia initially requiring 3% saline currently on Florinef # UTI, treated with Cipro for positive culture with Pseudomonas # urinary retention, Luna placed due to increased postvoid residual despite straight cathing 3 times. * Can again attempt to removing Luna since she has been treated for a UTI * May need voiding trials ongoing in the rehab facility # syncope evaluation negative, she had an unremarkable echocardiogram except for some mild pulmonary hypertension with an RVSP of 44. * Telemetry has remained normal sinus rhythm * No further evaluation at this time required. Subjective: Discussed in multi disciplinary rounds, patient has minimal pain currently she is tired this morning. Objective: Vital Signs Temp Pulse Resp BP Pulse Ox 36.8 C 96 20 136/65 H 95 02/15/18 08:00 02/15/18 08:50 02/15/18 08:00 02/15/18 08:50 02/15/18 08:00 Microbiology 02/12/18 11:10 Urine Culture - Final Urine,Clean Catch Pseudomonas Aeruginosa Gram Neg Chicho Lactose Change Number Operator Two [place] Types Laboratory Results 02/15/18 05:50 02/15/18 05:50 02/14/18 02/15/18 02/16/18 05:59 05:59 05:59 Intake Total 99 1782 120 Output Total 2525 2510 Balance -2426 -728 120 PT 15.1 SEC (12.0-15.0) H 02/04/18 00:15 INR 1.17 (0.83-1.16) H 02/04/18 00:15 - Physical Exam Constitutional: chronically ill appearing Eyes: anicteric sclera Ears, Nose, Mouth, Throat: moist mucous membranes Cardiovascular: regular rate and rhythym Respiratory: no respiratory distress Gastrointestinal: normoactive bowel sounds, soft, non-tender abdomen Genitourinary: no bladder fullness, luna in urethra Skin: warm Musculoskeletal: abnormal gait, generalized weakness Neurologic: facial droop Psychiatric: flat affect, other (tired) ICD10 Worksheet Patient Problems: Problems Problem Status Onset Traumatic subarachnoid hemorrhage Acute Fracture of occipital bone of skull with loss of consciousness Acute Syncope Acute Subdural hematoma Acute Grand mal seizure Acute
--- NOTE | 2018-02-15 12:35 | PDINTPN ---
Plate Maker Progress Note Assessment/Plan: Assessment/Plan: 72 F admitted 02/03 after unwitnessed fall of about 6 feet with syncope, found to have skull fracture, SDH/intraparenchymal hemorrhage who was monitored initially, but deteriorated requiring craniectomy with evacuation of blood, partial cerebellar lobectomy, and EVD placement. She remained intubated overnight but had excellent AM parameters and was extubated 02/04. Fell in the ICU early in the morning on 02/11 with resultant small head lac which was sutured. CT scan without changes. Since admission she has had persistently altered mental status with slow improvement. * Traumatic ICH- s/p above procedure with relative stability. BP parameters now SBP<160, Na 140-150. C collar removed. * Hypertension: Off nicardipine drip. On lisinopril and metoprolol. * Seizure- 2/2 #1. No further seizure activity noted at [facility] - on Keppra * Acute respiratory failure with hypoxia. Extubated, resolved * Altered MS- fluctuating, improving slowly. Multifactorial, mostly related to her original trauma but medications, fall with possible concussion, and other factors (UTI) certainly contributing. * Hypokalemia- on replacement protocol * Hyponatremia. Was on 3% saline, currently off. Sodium 138 today. On Florinef. * Fall: Fell early 02/11 striking head with a small laceration. Repaired by Dr. Downs. No obvious neurologic changes but her felt she had more pain, more photophobia, and more lethargy after. These changes seem to have now resolved. CT scan of the head unchanged. Neurosurgery continues to follow. * UTI: Patient has a history of recurrent urinary tract infections. No Zaragoza in place. On Cipro. PsA on culture, sensitive. * Urinary retention: With Zaragoza removed patient had difficulty urinating, with bladder scans positive between 300 mL and 1 L. Zaragoza thus replaced on 02/13. Continue care in the intensive care unit. Follow sodium, laboratory. Continue Florinef, restart 3% saline if needed. Continue oral antihypertensives. Continue Keppra, Cipro - 5 days total. Increase mobilization as tolerated. Avoid sedatives/narcotics as much as possible. Monitor blood pressure and neurologic status. Consider discharge to inpatient rehab in the next 24-48 hours as her medical problems at this point are now quite stable. 25 min of critical care time spent directly with the patient. Discussed with the patient's and daughter, hospitalist, nursing, the ICU multi disciplinary team. Subjective: Up in chair, eating with assistance. Eyes quite open at times, smiles at times. More verbal. Objective: Vital Signs Temp Pulse Resp BP Pulse Ox 36.6 C 76 18 134/65 H 95 02/15/18 12:17 02/15/18 12:00 02/15/18 12:00 02/15/18 12:00 02/15/18 12:00 Microbiology 02/12/18 11:10 Urine Culture - Final Urine,Clean Catch Pseudomonas Aeruginosa Gram Neg Chicho Lactose Fur Blowing Machine Attendant Two [place] Types Laboratory Results 02/15/18 05:50 02/15/18 05:50 02/14/18 02/15/18 02/16/18 05:59 05:59 05:59 Intake Total 99 1782 120 Output Total 2525 2510 Balance -2426 -728 120 PT 15.1 SEC (12.0-15.0) H 02/04/18 00:15 INR 1.17 (0.83-1.16) H 02/04/18 00:15 Physical Exam - Physical Exam General Appearance: no apparent distress, other (Remains lethargic, eyes closed at times, open at times) EENT: PERRL/EOMI, other (On room air), No normal ENT inspection (Evolving ecchymoses, suture areas without evidence infection) Neck: normal inspection Respiratory: lungs clear, decreased breath sounds (At bases) Cardiac/Chest: regular rate, rhythm, No gallop Abdomen: normal bowel sounds, non-tender, soft Pelvic Exam: other (Zaragoza catheter in place, good urine output) Skin: normal color, warm/dry Extremities: No pedal edema Neuro/Psych: no motor/sensory deficits (Moves all extremities equally), cognition abnormalities (Improving) ICD10 Worksheet Patient Problems: Problems Problem Status Onset Traumatic subarachnoid hemorrhage Acute Fracture of occipital bone of skull with loss of consciousness Acute Syncope Acute Subdural hematoma Acute Grand mal seizure Acute
[2018-02-15] MEDS: D MANNOSE PO SCH (18:20)
[2018-02-15] MEDS: CRANACTIN PO SCH (18:20)
[2018-02-15] MEDS ORDERED: CRANACTIN PO SCH (21:00)
[2018-02-15] MEDS ORDERED: D MANNOSE PO SCH (21:00)
[2018-02-16] MEDS: NS W/ 20 KCl/L 1,000 ML IV SCH (01:43)
[2018-02-16] MEDS: traMADol 50 MG TAB PO PRN ×2 (05:14→12:24)
[2018-02-16] MEDS ORDERED: POTASSIUM CL 10 MEQ TAB PO ONE (07:30)
--- NOTE | 2018-02-16 07:33 | NEUSURGPN ---
Date of Surgery: 02/04/18 Post Op Day: 12 Assessment/Plan: Assessment: 72 yo F with left sided SDH, right tentorial subdural hematoma and cerebellar hematoma, POD #12 EVD placement and suboccipital craniotomy for evacuation of hemorrhage Head CT 02/11 shows no hydrocephalus, slow evolution/improvement of hemorrhages, no acute hemorrhage Plan: -CPM -neuro: stable and doing well overall. Recent fall with no evidence of hemorrhage on post fall CT on 02/11/18 -head laceration repaired by Dr Downs-appreciate his care -EVD removed on 02/10, no issues since -PO meds to keep SBP < 160 mmhg, off nicardipine since 02/12/18 -cervical spine flexion/extension views do not show evidence of translational listhesis, she is out of hard collar -scd/kellie for dvt prophylaxis -continue keppra at 750 mg po/iv bid -Na 137 this am, off of 3% percent, on NS IVF -appreciate Medicine help with medical issues -Neuro checks every 4 hours -PT/OT/ST -please call with neuro changes, dispo planning Subjective: Awake and alert. NAD. Eating/drinking and voiding. No f/c/n/v/d. Objective: More alert and responsive this am per RN NAD opens eyes to verbal command PERRLA GARCIA x 4 diffusely 4/5 throughout BUE and BLE Incision and head laceration site c/d/i Neuro Check Frequency: per routine Urinary Catheter in Place: No Catheter Insertion Date: 02/14/18 - Physician Discussed Patient with : Annette Neurosurgery Physical Exam - Vitals, I&O, Labs I and O 02/15/18 02/16/18 02/17/18 05:59 05:59 05:59 Intake Total 1782 3155 Output Total 2510 3650 450 Balance -728 -495 -450 Intake: Oral (ml) 950 1200 IV Intake (ml) 805 IV Infused (ml) 832 1150 NS W/ 20 KCl/L 1,000 ml @ 832 1150 100 mls/hr IV CONT NASREEN Rx#:[id number] Output: Urine (ml) 2510 3650 450 Catheter 2510 3650 450 Other: Urine Specific [place] Catheter 2 Intake Quantity Yes Sufficient Output Comment Toilet Up to BR Number of Voids Toilet 1 Number of Stools Incontinence 1 Toilet 1 Bladder Scan Volume (ml) Toilet 440 Vital Signs Temp Pulse Resp BP Pulse Ox 36.9 C 95 19 147/67 H 95 02/16/18 07:14 02/16/18 07:14 02/16/18 07:14 02/16/18 07:14 02/16/18 07:14 Laboratory Results 02/15/18 05:50 02/16/18 05:05 ICD10 Worksheet Patient Problems: Problems Problem Status Onset Fracture of occipital bone of skull with loss of consciousness Acute Grand mal seizure Acute Subdural hematoma Acute Syncope Acute Traumatic subarachnoid hemorrhage Acute
[2018-02-16] MEDS ORDERED: Herbals/Supplements -Info Only PO SCH (09:00)
[2018-02-16] MEDS: LISINOPRIL 10 MG TAB PO SCH (09:16)
[2018-02-16] MEDS: CIPROFLOXACIN 250 MG TAB PO SCH (09:16)
[2018-02-16] MEDS: METOPROLOL TARTRATE 25 MG TAB PO SCH (09:16)
[2018-02-16] MEDS: FLUDROCORTISONE ACETATE 0.1 MG TAB PO SCH (09:16)
[2018-02-16] MEDS: ACETAMINOPHEN 325 MG TAB PO PRN (09:16)
[2018-02-16] MEDS: POLYETHYLENE GLYCOL 3350 17 GM PKT PO SCH (09:17)
[2018-02-16] MEDS: levETIRAcetam 500 MG/5 ML UDCUP PO SCH (09:17)
[2018-02-16] MEDS: CRANACTIN PO SCH (09:20)
[2018-02-16] MEDS: D MANNOSE PO SCH (09:20)
--- NOTE | 2018-02-16 09:46 | PDINTPN ---
Receptionist Secretary Progress Note Assessment/Plan: Assessment/plan: 72 F admitted 02/03 after unwitnessed fall of about 6 feet with syncope, found to have skull fracture, SDH/intraparenchymal hemorrhage who was monitored initially, but deteriorated requiring craniectomy with evacuation of blood, partial cerebellar lobectomy, and EVD placement. She remained intubated overnight but had excellent AM parameters and was extubated 02/04. Fell in the ICU early in the morning on 02/11 with resultant small head lac which was sutured. CT scan without changes. Since admission she has had persistently altered mental status with slow improvement. * Traumatic ICH- s/p above procedure with relative stability. BP parameters now SBP<160, Na 140-150. C collar removed. * Hypertension: Off nicardipine drip. On lisinopril and metoprolol. * Seizure- 2/2 #1. No further seizure activity noted at [facility] - on Keppra * Acute respiratory failure with hypoxia. Extubated, resolved * Altered MS- fluctuating, improving slowly. Multifactorial, mostly related to her original trauma but medications, fall with possible concussion, and other factors (UTI) certainly contributing. -improving * Hypokalemia- on replacement protocol * Vision-blurred vision currently * Hyponatremia. Was on 3% saline, currently off. Sodium 138 today. On Florinef. * Fall: Fell early 02/11 striking head with a small laceration. Repaired by Dr. Downs. No obvious neurologic changes but her felt she had more pain, more photophobia, and more lethargy after. These changes seem to have now resolved. CT scan of the head unchanged. Neurosurgery continues to follow. * UTI: Patient has a history of recurrent urinary tract infections. No Zaragoza in place. On Cipro. PsA on culture, sensitive. * Urinary retention: With Zaragoza removed patient had difficulty urinating, with bladder scans positive between 300 mL and 1 L. Zaragoza thus replaced on 02/13. * Disposition-to acute rehab soon Subjective: Sitting up in chair. Resting comfortably. Complains of blurred vision. Objective: Vital Signs Temp Pulse Resp BP Pulse Ox 36.9 C 95 19 147/67 H 95 02/16/18 07:14 02/16/18 07:14 02/16/18 07:14 02/16/18 07:14 02/16/18 07:14 Laboratory Results 02/15/18 05:50 02/16/18 05:05 02/15/18 02/16/18 02/17/18 05:59 05:59 05:59 Intake Total 1782 3155 400 Output Total 7099 7486 950 Balance -728 -495 -550 PT 15.1 SEC (12.0-15.0) H 02/04/18 00:15 INR 1.17 (0.83-1.16) H 02/04/18 00:15 - Time Spent With Patient Time Spent With Patient: 25 min of time spent with patient, over 1/2 involved with coordination of care or counseling. Case discussed with family and nursing Physical Exam - Physical Exam General Appearance: alert, no apparent distress Neck: non-tender, full range of motion, supple, normal inspection Respiratory: chest non-tender, lungs clear, normal breath sounds Cardiac/Chest: normal peripheral pulses, regular rate, rhythm Peripheral Pulses: 2+: carotid (R), carotid (L), femoral (R), femoral (L), dorsalis-pedis (R), dorsalis-pedis (L) Abdomen: normal bowel sounds, non-tender, soft Pelvic Exam: deferred Rectal: deferred Skin: normal color, warm/dry Extremities: normal range of motion, non-tender, normal inspection, normal capillary refill Neuro/Psych: alert ICD10 Worksheet Patient Problems: Problems Problem Status Onset Fracture of occipital bone of skull with loss of consciousness Acute Grand mal seizure Acute Subdural hematoma Acute Syncope Acute Traumatic subarachnoid hemorrhage Acute
--- NOTE | 2018-02-16 10:00 | HOSPPROG ---
Hospitalist Progress Note Assessment/Plan: 72-year-old woman admitted after an unwitnessed fall outside. She was found down by a bystander in her garden and was found to have a skull fracture, subdural hematoma/intraparenchymal hemorrhage. She was initially monitored in the ICU however after a deterioration required craniotomy with evacuation of blood partial cerebellar lobectomy and EVD placement. Postop she had been recovering well however fell in the ICU early in the morning 0530 with resultant small had laceration and CT scan without changes. She continues to have a very slow improvement. discussed in multidisciplinary rounds. Pt medically ready for DC and [facility] is aware and has a bed waiting for her. I talked with NS who will DC her later today. # traumatic subdural hematoma/intraparenchymal hemorrhage status post evacuation of blood and partial cerebellar lobectomy. * Blood pressure parameters for systolic less than 160 a sodium of 140-150 * Continue therapies with likely rehab post hospitalization, family decided on placement * Status post seizure secondary to above however none since, currently on Keppra * Encephalopathy likely secondary to head injury with slow resolution. Will need ongoing rehab post hospitalization. # blurry vision: likely related to brain injury rather than primary eye issue. Discussed with patient , it is better to wait on visual exam rather than do now when patient is not lucid all the time. # hypertension, continue to monitor on oral medications # hypokalemia on replacement # hyponatremia initially requiring 3% saline currently on Florinef # UTI, treated with Cipro for positive culture with Pseudomonas # urinary retention, Zaragoza placed due to increased postvoid residual despite straight cathing 3 times. * Can again attempt to removing Zaragoza since she has been treated for a UTI * May need voiding trials ongoing in the rehab facility # syncope evaluation negative, she had an unremarkable echocardiogram except for some mild pulmonary hypertension with an RVSP of 44. * Telemetry has remained normal sinus rhythm * No further evaluation at this time required. Subjective: eating. more lucid today. large BM yesterday Objective: Vital Signs Temp Pulse Resp BP Pulse Ox 36.9 C 95 19 147/67 H 95 02/16/18 07:14 02/16/18 07:14 02/16/18 07:14 02/16/18 07:14 02/16/18 07:14 Laboratory Results 02/15/18 05:50 02/16/18 05:05 02/15/18 02/16/18 02/17/18 05:59 05:59 05:59 Intake Total 1782 3151 400 Output Total 8431 2729 950 Balance -529 -986 -928 PT 15.1 SEC (12.0-15.0) H 02/04/18 00:15 INR 1.17 (0.83-1.16) H 02/04/18 00:15 - Physical Exam Constitutional: not in pain, chronically ill appearing Eyes: PERRL Cardiovascular: regular rate and rhythym Respiratory: no respiratory distress Psychiatric: flat affect ICD10 Worksheet Patient Problems: Problems Problem Status Onset Traumatic subarachnoid hemorrhage Acute Fracture of occipital bone of skull with loss of consciousness Acute Syncope Acute Subdural hematoma Acute Grand mal seizure Acute
[2018-02-16 12:52] VITALS: BP 130/62
--- NOTE | 2018-02-16 13:43 | PDIAF ---
- Diagnosis Diagnosis: s/p right posterior craniotomy/scalp laceration/fall Code Status: Full Code - Medication Management Discharge Medications: Medications to Continue on Transfer D-[place] W/ Cranactin 1 each PO BID 02/15/18 [Last Taken Unknown] Acetaminophen [Tylenol 325mg (*)] 650 mg PO Q4HRS PRN tab 02/16/18 [Last Taken Unknown] Acetaminophen [Tylenol Rectal] 650 mg [place] Q4 PRN supp 02/16/18 [Last Taken Unknown] Ciprofloxacin [Cipro] 250 mg PO BID@1000,2000 tab 02/16/18 [Last Taken Unknown] Melatonin [Melatonin 3 MG (*)] 3 mg PO HS PRN tab 02/16/18 [Last Taken Unknown] Metoprolol Tartrate [Lopressor 25 mg (*)] 12.5 mg PO BID tab 02/16/18 [Last Taken Unknown] oxyCODONE IR [Oxycodone Ir (*)] 2.5 mg PO Q4HRS PRN tab 02/16/18 [Last Taken Unknown] Discharge Medications: Refer to the Discharge Home Medication list for PRN reason. PICC Care - Routine: N/A - Orders Services needed: Registered Nurse, Certified Sexton Helper, Master Validation Intern , Physical Therapy, Occupational Therapy Oxygen: to keep O2 sat above 90% Diet Recommendation: no restrictions on diet Diet Texture: Dysphagia 1 - Pureed, Thin Liquids, Meds Crushed in Puree Tube feeding: n/a Zaragoza: Not applicable Sutures/[place] Site: Remove posterio sutures on 02/18 or 02/19 please Additional Instructions: Left scalp laceration : remove sutures (2) on 02/19 Wound Care Follow-Up: Removal of sutures (posterior crani site) at 10-14 days. Suture removal is complimentary in uncomplicated cases. Call with any questions or concerns Take medications as directed Pt and understand and agree - Follow Up Care Current Providers and Referrals: Patient,NotPresent [Unknown] - As per Instructions Jer Bryant MD [Medical Doctor] - (follow up in 1-2 weeks)
--- NOTE | 2018-02-16 14:14 | ASMTLACE ---
LACE Length of stay for Answers: 14 days or more current admission Acuity / Level of Answers: Yes Care: Did the patient have an inpatient admission? # of Emergency department Answers: 1-2 visits in the last 6 months Score: 11 Date Signed: 02/16/2018 02:14 PM Electronically Signed By:Etsella Tay LCSW
--- NOTE | 2018-02-16 14:17 | ASDISCHSUM ---
Discharge Information Plan Status:Inpatient Rehab Medically Cleared to Leave:02/16/2018 Discharge Date:02/16/2018 CM D/C Disposition:[facility] IP ADT D/C Disposition:[facility] IP Projected Discharge Date:02/16/2018 02:00 AM Transportation at D/C:ALS/BLS Discharge Delay Reason: Follow-Up Date:02/16/2018 02:00 AM Discharge Slot: Final Diagnosis:SDH, Skull fx, Syncope Placement Information Referral Type:Rehabilitation Hospital Referral ID:[id number] Provider Name:[facility] Address 1:[address] Phone Number: Address 2: Fax Number: [facility]:[place] Selection Factors: State:[place] Patient Contact Information Contact Name:TRUPTI Relationship: Address:[address] City:[place] Alternate Phone: State/Zip Code:[place] [address] Email: Financial Information Financial Class:Medicare Primary Plan Desc:MEDICARE INPATIENT Primary Plan Number:[id number] Secondary Plan Desc:[employer]/M[employer] SUPPLEMENT Secondary Plan Number:[id number] Assessment Information [facility] CM Progress Note CM Note CM Note Notes: Patient admitted after falling and suffering bilateral subdural hematomas with intraparenchymal hemorrhage. Most recent CT shows slight worsening. She had a witnessed tonic clonic seizure in the ED. She is to wear a C-collar until her mental status improves; q 1hr neuro checks have been ordered. Patient lives with her and is normally independent. Therapies have been ordered and will assess her when appropriate. Case Management will follow. Date Signed: 02/02/2018 03:28 PM Electronically Signed By:Betsey Ruiz RN LACE ERENDIRA Length of stay for Answers: 14 days or more current admission Acuity / Level of Answers: Yes Care: Did the patient have an inpatient admission? # of Emergency department Answers: 1-2 visits in the last 6 months Score: 11 Date Signed: 02/16/2018 02:14 PM Electronically Signed By:Estella Tay LCSW [facility] CM Progress Note CM Note CM Note Notes: Patient had a crani yesterday. Extubated today. Patient has had some agitation. Patient is following commands and answering simple questions.Patient may need rehab program for brain injury. Inpatient rehab eval has been ordered and they are following.CM will follow. Date Signed: 02/04/2018 02:41 PM Electronically Signed By:Josie Montes LCSW [facility] CM Progress Note CM Note CM Note Notes: Therapies are recommending inpatient rehab. Pt is not medically stable to d/c at this time. Inpatient rehab reports that pt is a good candidate for their program. Inpatient rehab will re-assess on Friday for appropriateness. CM to follow. Plan: Inpatient Rehab Date Signed: 02/06/2018 02:36 PM Electronically Signed By:ROSIE Quevedo [facility] CM Progress Note CM Note CM Note Notes: Drain to come out today, sodium still low, the thought in ICU Rounds was that patient would go to [facility] after ICU then to [facility] in a few days. Date Signed: 02/10/2018 12:56 PM Electronically Signed By:Estella Tay LCSW [facility] CM Progress Note CM Note CM Note Notes: Family meeting was held today with SARAH Krishnamurthy Director, Chaplain Perkins Bethany, Case Management, Social Work, and patient's Dc. Dc was interested in the next steps of care from d/c. Reviewed the 3 possibilities which are inpatient rehab, SNF rehab or Home Health care. Dc is hoping patient will be able to do inpatient rehab. Dc was given information on SNF's so he can research them and choose if in fact patient needs that level of care at d/c. He was also given an informational packet on [facility] inpatient rehab. CM will follow. Date Signed: 02/12/2018 02:07 PM Electronically Signed By:Josie Montes LCSW [facility] CM Progress Note CM Note CM Note Notes: An additional family meeting was held today including the patient's daughters Lori and Pat as well as her daughter in law, Silas and , Dc. The staff in attendance were Shruthi, SHANK PAPERER, Sherri, physical therapist, Yesys, RN director for ICU, and myself Josie MARIE, Social Work. The family had questions about next steps for their mother and wanted to hear what the options were and what the process is. This information was shared with them. Shruthi addressed questions about what interventions were ok for patient and how to communicate/challenge her over the next several days. Physical therapist Sherri was able to address their questions about [facility] program vs. [facility] inpatient rehab program. (Sherri works for [facility] as well) The family wants patient to have the best and most challenging program for rehab. However, they also would like her to be in a facility closer to her friends and family so everyone can visit and support her.They will discuss the pros and cons and let us know their decision. A referral was made to [facility] at Dc's request.Daughter Lori wants to have a discussion about patient falling while here in the hospital and will coordinate with Yessy, Nurse Director to set that meeting up. CM will follow. Date Signed: 02/13/2018 03:37 PM Electronically Signed By:Josie Montes LCSW [facility] CM Progress Note CM Note CM Note Notes: Voicemail from [facility] admissions department from 02/13: they do not usually accept patients over age 65 but will have MD review the case. They'll be in touch Friday, 02/16. I communicated this to patient's Dc who understands. Date Signed: 02/14/2018 12:19 PM Electronically Signed By:Betsey Ruiz RN Case Management Discharge Plan Note Case Management Discharge Discharge Order Complete? Answers: Yes Patient to Obtain Answers: Other Notes: In-pt rehab Medications Transportation Arranged Answers: [facility] Transport will Pick (Date 02/16/2018 02:30 PM & Time) Case Management Transport Answers: Yes Form Complete Faxed Final Orders Answers: Yes Family Notified Answers: Yes Notes: notified Discharge Comments Notes: prefers for patient to go to [facility] IN-pt Rehab. Cancelled Bradley's visit. Patient has been discharged. [facility] to transport today at 14:30. Date Signed: 02/16/2018 02:13 PM Electronically Signed By:Estella Tay LCSW Intervention Information Intervention Type:*IM-Signed Date of Service:02/16/2018 02:04 PM Patient Type:Inpatient Staff Member:Deandra Lechuga Hours: Discipline: Severity: Comment:
== END 2018-02-16 14:34 | DRG 23 ==
LOC: EDUNIT# → F2N 13:40
PROVIDERS: ADMIT Neurological Surgery; ATTEND Neurological Surgery
PROC: 0HQ0XZZ Repair Scalp Skin, External Approach (ICD-10-PCS; 2018-02-02)
PROC: 02HV33Z Insertion of Infusion Device into Superior Vena Cava, Percutaneous Approach (ICD-10-PCS; 2018-02-03)
PROC: 00CC0ZZ Extirpation of Matter from Cerebellum, Open Approach (ICD-10-PCS; principal; 2018-02-04 01:00)
PROC: 009600Z Drainage of Cerebral Ventricle with Drainage Device, Open Approach (ICD-10-PCS; principal; 2018-02-04 01:00)
PROC: 00BC0ZX Excision of Cerebellum, Open Approach, Diagnostic (ICD-10-PCS; principal; 2018-02-04 01:00)
PROC: 0HQ0XZZ Repair Scalp Skin, External Approach (ICD-10-PCS; 2018-02-11)
PROC: 0HC0XZZ Extirpation of Matter from Scalp Skin, External Approach (ICD-10-PCS; 2018-02-11)
DX: S06.379A Contusion, laceration, and hemorrhage of cerebellum with loss of consciousness of unspecified duration, initial encounter (principal); S06.6X9A Traumatic subarachnoid hemorrhage with loss of consciousness of unspecified duration, initial encounter; S06.5X9A Traumatic subdural hemorrhage with loss of consciousness of unspecified duration, initial encounter; S02.11GA Other fracture of occiput, right side, initial encounter for closed fracture; S06.1X9A Traumatic cerebral edema with loss of consciousness of unspecified duration, initial encounter; S01.01XA Laceration without foreign body of scalp, initial encounter; W17.89XA Other fall from one level to another, initial encounter; Y92.017 Garden or yard in single-family (private) house as the place of occurrence of the external cause; S01.81XA Laceration without foreign body of other part of head, initial encounter; W06.XXXA Fall from bed, initial encounter; Y92.230 Patient room in hospital as the place of occurrence of the external cause; J96.01 Acute respiratory failure with hypoxia; E87.6 Hypokalemia; N39.0 Urinary tract infection, site not specified; B96.5 Pseudomonas (aeruginosa) (mallei) (pseudomallei) as the cause of diseases classified elsewhere; R56.9 Unspecified convulsions; R13.10 Dysphagia, unspecified; M81.0 Age-related osteoporosis without current pathological fracture
CPT/HCPCS: 92507-GN; 92523-GN; 92526-GN; 92610-GN; 96374; 97116-GP; 97162-GP; 97166-GO; 97530-GO; 97530-GP; 97535-GO; C1751; G8978-GP-CL; G8979-GP-CJ; G8987-GO-CK; G8987-GO-CL; G8988-GO-CI; G8988-GO-CJ; G8996-GN-CJ; G8997-GN-CH; J0171; J0360; J0690; J1580; J1953; J2060; J2270; J2405; J2704; J2765; J3010; J3480; P9035

== ENCOUNTER 2018-02-16 14:52 | Inpatient (IN) | payer OTHER, MEDICARE ==
[2018-02-16] MEDS ORDERED: PNEUMOC 13-VAL CONJ-DIP CRM/PF 0.5 ML SYR IM ONE (15:47)
--- NOTE | 2018-02-16 17:35 | PDOREHIP ---
[facility]mission [facility] - Admission - 3 Day Assessment Period Admission Date/Day 1: 02/16/18 Day 2: 02/17/18 Day 3: 02/18/18 - Active Diagnoses Comorbidities and Co-existing Conditions at Admission: 86089. None of the Above - Skin Conditions Unhealed Pressure Ulcer (1 or more/Stage 1 or >)-Admission: 0. No
--- NOTE | 2018-02-16 18:24 | GHP ---
[f rep st] HISTORY AND PHYSICAL POST ADMISSION PHYSICIAN EVALUATION AND REHABILITATION TREATMENT PLAN DATE OF ADMISSION: 02/16/2018 DATE OF EVALUATION: 02/16/2018. TIME OF EVALUATION: 1625. REFERRING FACILITY: [facility]. IMPAIRMENT GROUP: [id number]. ETIOLOGIC DIAGNOSIS: Traumatic, closed injury. DATE OF ONSET: 02/02/2018. REFERRING PHYSICIAN: Nannette Díaz MD CONSULTING PHYSICIANS: She was seen in consultation by the Neurosurgery Service , Dr. Whelan; Pulmonary and Critical Care, Dr. Perez; Trauma Surgery, Dr. Downs. REHABILITATION DIAGNOSIS: Debility status post fall, subdural hematoma, intraparenchymal hemorrhages, and occipital craniotomy for evacuation of blood. DATE OF SURGERY: 02/04/2018. HISTORY OF PRESENT ILLNESS: This patient was admitted to [facility] on 02/02/2018 after a 6-8 foot fall from a garden bed onto her driveway. She had a head CT that showed bilateral subdural hematomas, a right tentorial subdural hematoma, and a cerebellar hematoma. There was also an occipital bone fracture. She had a tonic-clonic seizure while in the emergency department and was loaded on IV lorazepam and levetiracetam. On 02/04/2018, she had a change in mental status, and imaging showed worsening cerebral edema. She was taken to the operating room and initially had a right ventriculostomy catheter placed. Subsequently, she had a right suboccipital craniotomy with evacuation of a right cerebellar hematoma and a partial cerebellar lobectomy. She had an evaluation for syncope including EKG and echocardiogram. The echocardiogram showed mild pulmonary hypertension with a right ventricular systolic pressure of 44. No cardiac dysrhythmias were seen on EKG are telemonitoring. She had other hospital complications including a urinary tract infection, urinary retention requiring Zaragoza placement, hyponatremia and hypokalemia requiring frequent blood draws and electrolyte replacement, hypertension, and blurred vision. She had a fall on 02/11/2018 in the ICU. There was a small scalp laceration that was repaired by Dr. Downs, and her head CT was unchanged. STUDIES AND LABORATORIES IN THE HOSPITAL: Most recent CBC on 02/15/2018 showed anemia with a hemoglobin of 9.8 and hematocrit of 29.2. These were slightly down from the previous day when they were at 10.1 and 30.2. She had elevated white blood cell counts, but on the day before discharge, her white blood cell count was normal at 6.23. She had a very slightly elevated PT at 15.1, PTT was normal at 26.9. Serum chemistry showed the development of hyponatremia with a dana of 129, and subsequently she did not have a low sodium. She had a low potassium at 2.8 on 02/04/2018, but subsequently her potassium was normal. TSH was normal. Troponin I was negative. Magnesium was normal, and on the day of discharge, BMP showed overall normal renal function and electrolytes. BUN was low at 5, and creatinine was low at 0.5. Urinalysis was consistent with a UTI with 3+ leukocyte esterase and 50 to 182 white blood cells on 02/12/2018. On culture, she grew Pseudomonas with no antibiotic resistances. She was treated with ciprofloxacin. The head CT that was done after her fall in the ICU on 02/11/2018 continued to show multiple foci of intracranial hemorrhage unchanged from the previous study. There was parenchymal hemorrhage in the right posterior cerebellum. There was subdural hemorrhage along the tentorium cerebelli. There was intraparenchymal hemorrhage in the left temporal and left frontal lobe and in the post anterior aspect of the right caudate nucleus. Additionally, there was subdural blood in the interhemispheric falx. Her right ventriculostomy catheter had been removed, and there was mild residual hemorrhage along the catheter tract. PRECAUTIONS: She is a fall risk. She has aspiration precautions and seizure precautions. ACTIVE COMORBIDITIES: She has no active tier 1, tier 2, or tier 3 comorbidities. PAST MEDICAL HISTORY: 1. Osteoporosis. 2. Recurrent urinary tract infections. 3. Pathologic femur fractures, an adverse effect of Fosamax. PREHOSPITAL MEDICATIONS: She was taking a cranberry supplement and several other supplements and vitamins. ADMISSION MEDICATIONS: 1. Acetaminophen 650 mg p.o. q.4 h. p.r.n. 2. Ciprofloxacin 250 mg p.o. b.i.d. through 02/18/2018. 3. Levetiracetam 750 mg p.o. b.i.d. 4. Lisinopril 20 mg p.o. daily. 5. Melatonin 3 mg p.o. q.h.s. p.r.n. 6. Metoprolol 12.5 mg p.o. b.i.d. 7. Cranberry supplement b.i.d. 8. Oxycodone 2.5 mg p.o. q.4 h. p.r.n. 9. Tramadol 50 mg p.o. q.4 h. p.r.n. ALLERGIES: Listed to sulfa antibiotics. PSYCHOSOCIAL HISTORY: She is . She lives with her . She has had 3 children. 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 FAMILY HISTORY: Noncontributory. REVIEW OF SYSTEMS: She reports some stomach discomfort. She had 3 large bowel movements in the last 2 days, soft and formed. She has urinary retention, and a Zaragoza catheter is in place. She was having intermittent clamping of the catheter done. When the catheter was placed, she had 1200 cc residual. She denies cough or dyspnea. She denies chest pain or palpitations. She has blurry vision. It is unclear how aware she is of swallowing difficulty. She denies headache, weakness, numbness, or tingling of the extremities. Otherwise , a 10-point review of systems is negative. PHYSICAL EXAMINATION: VITALS: This morning in the hospital, blood pressure was 130/62, heart rate 82, respiratory rate 17, oxygen saturation 98% on room air, temperature 36.8 degrees Centigrade. Her weight is 53.7 kg for a body mass index of 18.5. GENERAL: This is a well-nourished, well-developed woman who appears younger than her chronologic age, cooperative, and in no acute distress. HEENT: Extraocular movements are intact though she does not consistently have full right gaze. Pupils are equal, round, and reactive to light. Mucous membranes are moist. Dentition is in good condition. NECK: Supple. HEART: There is regular rate and rhythm with no murmurs, rubs, or gallops. LUNGS: Clear to auscultation bilaterally. ABDOMEN: Soft, nontender , nondistended with normoactive bowel sounds and no palpable bladder. EXTREMITIES: There is no cyanosis, clubbing, or edema. There is no calf tenderness. Radial and dorsalis pedis pulses are 2+ bilaterally. NEUROLOGIC: She is alert and oriented x3. She is drowsy. She requires assistance to arise to seated from supine. She prefers to keep her eyes closed as there is bright light coming in through the window. Cranial nerves 2-12 are grossly intact. There is no focal weakness. Sensation is intact to light touch. Visual kovacs appear to have a defect bilaterally in the lower quadrants and possibly on the left side. There is no pronator drift. Deep tendon reflexes are 2+ bilaterally at the biceps, patella, and Achilles tendons. CURRENT LEVEL OF FUNCTION: Per the preadmission screen, she was on a dysphagia 1 diet with thin liquids and medications crushed. She required minimal assist for eating. She needs supervision. She needed to have distractions limited. Liquids were taken by cup upright with all meals. Regarding grooming, she required minimal assist with voice cues for initiation to brush her teeth and moderate assistance for thoroughness to wash her hands and apply lotion. Toileting was done with moderate assist with voice cues for clothing management , and the toilet transfer required a moderate assist of 2. Bed mobility required moderate assist. Transfers required moderate assist of 1-2 and voice cues for initiation, sequencing, and orientation. She used a front-wheeled walker. Seated balance required moderate assist, and standing balance required moderate assist and voice cues. Endurance was fair. She ambulated 125 feet with minimal to moderate assist and voice cues using a front-wheeled walker. Regarding communication and cognition, she was noted to have severe impairment. IMPRESSION: This is a 72-year-old woman who suffered a 6 to 8 foot fall and loss of consciousness. She was found to have bilateral subdural hematomas including a right tentorial subdural hematoma, intraparenchymal hemorrhage in the left temporal and left frontal lobe and in the post anterior aspect of the right caudate nucleus. Additionally, there was subdural blood in the interhemispheric falx an occipital bone fracture, cerebellar hematoma, and she had a seizure in the emergency department. After 2 days in the hospital, she had a mental status change and required placement of a ventriculostomy catheter and a right suboccipital craniotomy with evacuation of the right cerebellar hematoma and a partial cerebellar lobectomy. Given that she had fallen and was found down, she had a syncopal evaluation which revealed right pulmonary hypertension with a right ventricular systolic pressure of 44, but otherwise was an unremarkable echocardiogram. EKG showed a sinus rhythm with a probable left atrial abnormality and nonspecific ST abnormalities in the anterior to lateral leads. There were no dysrhythmias seen on telemonitoring. Troponins were negative. She had electrolyte disturbances including hypokalemia and hyponatremia. She had urinary retention and a urinary tract infection. She had constipation which was finally relieved over the last 2 days, and ultimately she was medically stabilized and ready for inpatient rehabilitation. Her goal is to complete a rehabilitation stay and return home with her family and supportive services. For a safe discharge, she will need to achieve independence with eating and tolerate the least restrictive diet. She will need to initiate activities with minimal verbal input to initiate. She will need to consistently follow commands and directions. It is likely she will require supervision with grooming and assistance for bathing and dressing. She will ambulate with a walker for household distances, but may require a wheelchair for community settings, and patient's family will need to have education regarding her impairments and compensatory strategies. She will have therapy on a modified schedule with physical therapy, occupational therapy, and speech and language pathology for 30-60 minutes per day for each discipline on 5-7 days of the week. Her expected duration of stay is 21-28 days. It is anticipated that upon discharge she will continue to benefit from home health services including nursing, speech and language pathology, social work, occupational therapy, and physical therapy as well as a brain injury support group. PLAN: 1. Debility status post fall and intracranial hemorrhages. PT and OT to optimize mobility and ADLs toward the supervision level though she may continue to require assistance for bathing and dressing. 2. 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 3. Dysphagia to be assessed and treated per Speech and Language Pathology. 4. Visual disturbance with possible element of partial cortical blindness versus neglect. She will have detailed testing regarding visual acuity and visual processing by Occupational Therapy. 5. Urinary tract infection. Continue ciprofloxacin for a total of 7 days. 6. Urinary retention. We will attempt a voiding trial most likely tomorrow or the day after before the antibiotics are completed. Unclear why she should have urinary retention, though medication with opiates and hydralazine may have contributed, as well as constipation. Hydralazine is no longer on board, and her opiate use is considerably decreased. 7. Hyponatremia and hypokalemia. We will repeat a BMP in the morning. 8. Anemia. Will repeat a CBC in the morning. 9. Presence of a PICC line. If laboratories are stable or improving, we will discontinue the PICC line. 10. Pain management has been accomplished with tramadol and occasional very small doses of oxycodone. These will be continued. Acetaminophen will be continued as well. 11. Seizure, early onset on the day of her injury. Continuing levetiracetam per Neurosurgery. She is 2 weeks out from the seizure and will consider further discussion with Neurosurgery regarding potential discontinuation though most likely this will not happen until after followup. 12. Elevated blood pressures. Continue metoprolol and lisinopril. Followup. She has followup recommended on discharge with neurosurgeon, Dr. Bryant, in 1-2 weeks or after 02/23 or 03/02/2018. Necessity of seeing Neurosurgery versus having wound assessment and suture removal while on the inpatient rehabilitation unit will be discussed further with Neurosurgery. /[id number]/MODL MTDD
[2018-02-16] MEDS: levETIRAcetam 500 MG/5 ML UDCUP PO SCH (20:43)
[2018-02-16] MEDS: METOPROLOL TARTRATE 25 MG TAB PO SCH (20:43)
[2018-02-16] MEDS: CIPROFLOXACIN 250 MG TAB PO SCH (20:43)
[2018-02-16] MEDS: MAG HYDROX/AL HYDROX/SIMETH 30 ML UDCUP PO PRN (20:43)
[2018-02-16] MEDS: CRANACTIN PO SCH (20:44)
[2018-02-16] MEDS: traMADol 50 MG TAB PO PRN (20:44)
[2018-02-16] MEDS: D MANNOSE PO SCH (20:44)
[2018-02-16] MEDS ORDERED: CRANACTIN PO SCH (21:00)
[2018-02-16] MEDS ORDERED: D MANNOSE PO SCH (21:00)
[2018-02-16] MEDS: MELATONIN 3 MG TAB PO PRN (22:18)
[2018-02-16] MEDS: oxyCODONE IR 5 MG TAB PO PRN (22:18)
[2018-02-17] MEDS: ACETAMINOPHEN 325 MG TAB PO PRN ×2 (05:17→12:25)
[2018-02-17 08:09] LABS: PLATELET COUNT 485 10^3/uL (150-400)
[2018-02-17] MEDS: LISINOPRIL 20 MG TAB PO SCH (08:28)
[2018-02-17] MEDS: METOPROLOL TARTRATE 25 MG TAB PO SCH ×2 (08:30→21:08)
[2018-02-17] MEDS: levETIRAcetam 500 MG/5 ML UDCUP PO SCH ×2 (08:33→21:07)
[2018-02-17] MEDS: traMADol 50 MG TAB PO PRN ×3 (08:36→17:34)
[2018-02-17] MEDS: oxyCODONE IR 5 MG TAB PO PRN (08:36)
[2018-02-17] MEDS: CRANACTIN PO SCH ×2 (08:39→21:08)
[2018-02-17] MEDS: D MANNOSE PO SCH ×2 (08:39→21:08)
[2018-02-17] MEDS: CIPROFLOXACIN 250 MG TAB PO SCH ×2 (10:42→21:07)
--- NOTE | 2018-02-17 13:21 | SOAPPROG ---
SOAP Progress Note Assessment/Plan: Assessment: Debility status post fall and intracranial hemorrhages. * Minimal assist for transfers on initial OT assessment, 02/17/2018. * PT and OT to optimize mobility and ADLs toward the supervision level though she may continue to require assistance for bathing and dressing. 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 * Consider initiating a stimulant if somnolence interferes with participation in therapies. Dysphagia to be assessed and treated per Speech and Language Pathology. Pain management. Headache and upper back pain. * Schedule acetaminophen 1000 mg q.8 hours starting 02/17/2018. * Initiate amitriptyline 10 mg at bedtime, 02/17/2018, as a headache prophylactic. * Continue p.r.n. tramadol and oxycodone. Will discontinue oxycodone if pain control is adequate with tramadol. Visual disturbance with possible element of partial cortical blindness versus neglect. She will have detailed testing regarding visual acuity and visual processing by Occupational Therapy. Urinary tract infection. Continue ciprofloxacin for a total of 7 days. Urinary retention. Due to opiates plus hydralazine plus constipation? * Voiding trial today, 02/17/2018. Hyponatremia and hypokalemia. Normal BMP 02/17/2018. * With no need for frequent blood draws or IV electrolyte replacement, will discontinue PICC line, 02/17/2018. Anemia. Improving on CBC, 02/17/2018 Seizure, early onset on the day of her injury. Continuing levetiracetam per Neurosurgery. Hypertension. Adequate control with metoprolol and lisinopril. Followup. She has followup recommended on discharge with neurosurgeon, Dr. Bryant, in 1-2 weeks or after 02/23 or 03/02/2018. Necessity of seeing Neurosurgery versus having wound assessment and suture removal while on the inpatient rehabilitation unit will be discussed further with Neurosurgery. 02/17/18 13:49 Subjective: Complains of headache and upper back pain. Says she slept well. Bowels moving. Has photophobia. Objective: Vital Signs Temp Pulse Resp BP Pulse Ox 36.3 C 77 20 132/77 H 97 02/17/18 05:26 02/17/18 08:30 02/17/18 05:26 02/17/18 08:30 02/17/18 05:26 Laboratory Results 02/17/18 06:10 06/05/18 06:10 02/16/18 02/17/18 02/18/18 05:59 05:59 05:59 Intake Total 850 500 Output Total 1600 575 Balance -750 -75 Physical Exam - Physical Exam General Appearance: WD/WN, alert, no apparent distress, other (Sleepy) Respiratory: normal breath sounds, No crackles, No rhonchi, No wheezing Cardiac/Chest: regular rate, rhythm, No edema, No diastolic murmur, No systolic murmur Skin: normal color, warm/dry, other (Ecchymosis cease left temporal area adjacent to I) Neuro/Psych: alert, normal mood/affect, other (Sleepy, prefers to keep eyes closed, hypophonic, brief responses to questions.) ICD10 Worksheet Patient Problems: Problems Problem Status Onset Fracture of occipital bone of skull with loss of consciousness Acute Grand mal seizure Acute Subdural hematoma Acute Syncope Acute Traumatic subarachnoid hemorrhage Acute
[2018-02-17] MEDS ORDERED: ACETAMINOPHEN 325 MG TAB PO SCH (14:00)
[2018-02-17] MEDS: ACETAMINOPHEN 500 MG TAB PO SCH ×2 (15:10→21:08)
[2018-02-17] MEDS ORDERED: AMITRIPTYLINE HCL 10 MG TAB PO SCH (21:00)
[2018-02-17] MEDS: MELATONIN 3 MG TAB PO PRN (21:07)
[2018-02-18] MEDS: traMADol 50 MG TAB PO PRN ×2 (01:24→06:13)
[2018-02-18] MEDS: ACETAMINOPHEN 500 MG TAB PO SCH ×5 (06:13→21:28)
[2018-02-18] MEDS: levETIRAcetam 500 MG/5 ML UDCUP PO SCH ×2 (09:42→21:31)
[2018-02-18] MEDS: METOPROLOL TARTRATE 25 MG TAB PO SCH ×2 (09:44→21:31)
[2018-02-18] MEDS: LISINOPRIL 20 MG TAB PO SCH (09:49)
[2018-02-18] MEDS: D MANNOSE PO SCH ×2 (09:50→21:31)
[2018-02-18] MEDS: CRANACTIN PO SCH ×2 (09:50→21:31)
[2018-02-18] MEDS: CIPROFLOXACIN 250 MG TAB PO SCH ×2 (09:51→21:28)
[2018-02-18] MEDS ORDERED: AMITRIPTYLINE HCL 10 MG TAB PO SCH (11:27)
[2018-02-18] MEDS: oxyCODONE IR 5 MG TAB PO PRN ×3 (11:39→22:22)
[2018-02-18] MEDS: BETHANECHOL 10 MG TAB PO SCH ×3 (11:40→21:28)
--- NOTE | 2018-02-18 11:54 | SOAPPROG ---
SOAP Progress Note Assessment/Plan: Assessment: 72-year-old woman status post fall in bed on her driveway, approximately 6-8 feet, on 02/02/2018, with subdural and intracranial hemorrhages, and status post occipital craniotomy 02/04/2018. Fell in the ICU on 02/11/2018 and suffered a scalp laceration with suturing. No subsequent change in head CT. Increased headache pain, somnolence and unwillingness to participate in therapies today, 02/18/2018. * Sent for stat head CT to rule out worsening bleed. Study showed improvement in hemorrhages but continuing left frontal edema and midline shift 5 mm left to right. * Discussed with neurosurgeon Dr. Arian Pandey who thought that there be no benefit to initiating steroids for brain edema. * Discussed in detail with patient's and daughter. Plan is to improve sleep and pain control. Will prescribe oxycodone for HS and for 0 600 tomorrow morning. Increasing amitriptyline from 10 mg to 25 mg at bedtime. If she is somnolent through the morning, will initiate stimulant with methylphenidate 5 mg before lunch and then reassess participation in therapies in the afternoon. Debility status post fall and intracranial hemorrhages. * Minimal assist for transfers on initial OT assessment, 02/17/2018. * PT and OT to optimize mobility and ADLs toward the supervision level though she may continue to require assistance for bathing and dressing. 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 * Consider initiating a stimulant if somnolence interferes with participation in therapies. Dysphagia to be assessed and treated per Speech and Language Pathology. Pain management. Headache and upper back pain. * Schedule acetaminophen 1000 mg q.8 hours starting 02/17/2018. * Initiated amitriptyline 10 mg at bedtime, 02/17/2018, as a headache prophylactic. Increased to 25 mg at bedtime starting 02/18/2018. * Continue p.r.n. tramadol and oxycodone. Increased oxycodone from 2.5 mg to 5 mg q.4 hours p.r.n. on 02/18/2018. Visual disturbance with possible element of partial cortical blindness versus neglect. She will have detailed testing regarding visual acuity and visual processing by Occupational Therapy. Urinary tract infection. Continue ciprofloxacin for a total of 7 days, last day 02/18/2018. Urinary retention. Due to opiates plus hydralazine plus constipation? * Failed voiding trial 02/17/2018. 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 * Consider repeat voiding trial prior to discharge. Otherwise follow up with Urology after discharge per Hyponatremia and hypokalemia. Normal BMP 02/17/2018. * With no need for frequent blood draws or IV electrolyte replacement, discontinued PICC line, 02/17/2018. Anemia. Improving on CBC, 02/17/2018 Seizure, early onset on the day of her injury. Continuing levetiracetam per Neurosurgery. Hypertension. Adequate control with metoprolol and lisinopril. Followup. She has followup recommended on discharge with neurosurgeon, Dr. Bryant, in 1-2 weeks or after 02/23 or 03/02/2018. 02/18/18 11:54 02/18/18 16:44 Subjective: Headache this morning. Poor sleep last night. Did not participate in therapies this morning due to fatigue and headache. Has had urinary retention required catheterization last night and this morning. She has no sensation of urge to urinate. When she is up and alert, she is participating in therapy, with no signs of any neurologic deterioration. Objective: Vital Signs Temp Pulse Resp BP Pulse Ox 36.4 C 82 16 117/75 96 02/18/18 06:29 02/18/18 09:44 02/18/18 06:29 02/18/18 09:49 02/18/18 06:29 Laboratory Results 02/17/18 06:10 02/17/18 06:10 02/17/18 02/18/18 02/19/18 05:59 05:59 05:59 Intake Total 850 1300 500 Output Total 1600 2325 Balance -750 1026 500 - Time Spent With Patient Time Spent With Patient: Greater than 35 min floor time today, including more than 50% of time in coordination of care and discussions with Radiology and Neurosurgery, and counseling patient's family. Physical Exam - Physical Exam General Appearance: WD/WN, alert, no apparent distress Respiratory: normal breath sounds, No crackles, No rhonchi, No wheezing Cardiac/Chest: regular rate, rhythm, No edema, No diastolic murmur, No systolic murmur Skin: normal color, warm/dry Neuro/Psych: alert, normal mood/affect, speech abnormalities (Hypophonic) ICD10 Worksheet Patient Problems: Problems Problem Status Onset Fracture of occipital bone of skull with loss of consciousness Acute Grand mal seizure Acute Subdural hematoma Acute Syncope Acute Traumatic subarachnoid hemorrhage Acute
[2018-02-18] MEDS: ONDANSETRON DISINTEGRATING 4 MG TAB PO PRN (22:22)
[2018-02-19] MEDS: ACETAMINOPHEN 500 MG TAB PO SCH ×3 (06:14→21:14)
[2018-02-19] MEDS: BETHANECHOL 10 MG TAB PO SCH (06:15)
[2018-02-19] MEDS: oxyCODONE IR 5 MG TAB PO PRN ×3 (07:45→21:14)
[2018-02-19] MEDS: ONDANSETRON DISINTEGRATING 4 MG TAB PO PRN ×3 (07:48→21:15)
[2018-02-19] MEDS: levETIRAcetam 500 MG/5 ML UDCUP PO SCH ×2 (08:31→21:13)
[2018-02-19] MEDS: METOPROLOL TARTRATE 25 MG TAB PO SCH ×2 (08:33→21:15)
[2018-02-19] MEDS: D MANNOSE PO SCH ×2 (08:35→21:15)
[2018-02-19] MEDS: CRANACTIN PO SCH ×2 (08:35→21:15)
[2018-02-19] MEDS ORDERED: AMANTADINE HCL 100 MG CAP PO ONE (09:00)
[2018-02-19] MEDS: LISINOPRIL 10 MG TAB PO SCH (09:22)
--- NOTE | 2018-02-19 10:25 | SOAPPROG ---
[facility] Progress Note Assessment/Plan: 72-year-old woman status post traumatic brain injury 02/02/2018 with intracranial hemorrhage status post occipital craniotomy on 02/04/2018, status post 6-8 ft fall Today's update: She is having a very difficult time participating in therapy due to headache that is new since her fall and overall decreased attention and alertness. Per the staff and family this is very similar to how she was presenting yesterday. Making a number of changes to her plan today. We are adding amantadine 100 mg p. O. In the morning and at noon, this may be increased to 200 mg in the morning and noon in coming days if necessary. Additionally related to her headache which is essentially a daily posttraumatic headache I am increasing her amitriptyline to 25 mg p.o. At bedtime. A Zaragoza catheter was placed and bethanechol is being stopped for now. Adding bowel regimen for constipation since the . A total of 35 min was spent on the floor in the care of the patient, the majority of which was spent in the counseling and coordination of care regarding bladder management strategies. This patient is new to me in all medical issues are new to me as well. For now, given reports that she is very similar to yesterday, we will observe clinically and try the neuro stimulant. Low threshold for reimaging. Plan to discuss with Dr. Temple who knows the patient better. Additional issues reviewed but without change today includes dysphagia, visual disturbance/cortical blindness, urinary tract infection, hyponatremia and hypokalemia, anemia, early seizure, hypertension. 02/19/18 10:21 02/19/18 10:25 02/19/18 10:33 02/19/18 10:35 Subjective: Chief complaint: Poor rehabilitation participation No acute events overnight. Patient denies any new shortness of breath or chest pain, no new numbness, tingling, or weakness. She does endorse a headache that is relatively constant, hard to get good descriptors. She feels like it is there every day but not all the time. She notes it is relatively severe, but relatively unchanged in quality is otherwise. She is not participating in therapies this morning in her overall status and demeanor is similar to prior days including yesterday when she got a head CT that did not show any acute changes. She had urinary retention overnight and a Zaragoza was placed. She has also had a low blood pressure and was notified by nursing that they were going to hold lisinopril. She has not had a bowel movement since the 4th per nursing report. Bowel meds not included on the medication administration. Discussed the possibility of a neuro stimulant with family and the patient and they are amenable. Objective: Vital Signs Temp Pulse Resp BP Pulse Ox 37.1 C 78 14 105/56 L 96 02/19/18 08:00 02/19/18 08:33 02/19/18 08:00 02/19/18 09:22 02/19/18 08:00 Laboratory Results 02/17/18 06:10 02/17/18 06:10 02/18/18 02/19/18 02/20/18 05:59 05:59 05:59 Intake Total 1300 1445 Output Total 2325 1625 Balance -1025 -180 Physical Exam - Physical Exam General Appearance: WD/WN, mild distress, No alert (Decreased alertness) EENT: No scleral icterus (R), No scleral icterus (L), No anisocoria Respiratory: lungs clear, normal breath sounds, No respiratory distress, No accessory muscle use Cardiac/Chest: normal peripheral pulses, regular rate, rhythm, No edema Skin: normal color, warm/dry, No cyanosis, No diaphoresis Extremities: non-tender, No pedal edema, No calf tenderness, No swelling Neuro/Psych: cognition abnormalities, other (Pupils were equal round and reactive to light. Sleepy, could not assess orientation.), No alert (Decreased alertness) ICD10 Worksheet Patient Problems: Problems Problem Status Onset Fracture of occipital bone of skull with loss of consciousness Acute Grand mal seizure Acute Subdural hematoma Acute Syncope Acute Traumatic subarachnoid hemorrhage Acute
[2018-02-19] MEDS: BENEFIBER/NUTRISOURCE FIBER PKT 1 EACH PO SCH ×2 (10:40→21:15)
[2018-02-19] MEDS: AMANTADINE HCL 100 MG CAP PO SCH (11:47)
[2018-02-19] MEDS: MAG HYDROX/AL HYDROX/SIMETH 30 ML UDCUP PO PRN (17:45)
[2018-02-19] MEDS: POLYETHYLENE GLYCOL 3350 17 GM PKT PO SCH (18:04)
[2018-02-19] MEDS: AMITRIPTYLINE HCL 50 MG TAB PO SCH (21:15)
[2018-02-20] MEDS: ACETAMINOPHEN 500 MG TAB PO SCH ×3 (06:16→21:53)
[2018-02-20] MEDS: AMANTADINE HCL 100 MG CAP PO SCH ×2 (06:16→13:25)
[2018-02-20] MEDS: BENEFIBER/NUTRISOURCE FIBER PKT 1 EACH PO SCH ×2 (08:45→21:54)
[2018-02-20] MEDS: levETIRAcetam 500 MG/5 ML UDCUP PO SCH ×2 (08:45→21:53)
[2018-02-20] MEDS: POLYETHYLENE GLYCOL 3350 17 GM PKT PO SCH (08:45)
[2018-02-20] MEDS: METOPROLOL TARTRATE 25 MG TAB PO SCH ×2 (08:47→22:00)
[2018-02-20] MEDS: CRANACTIN PO SCH ×2 (08:47→21:54)
[2018-02-20] MEDS: LISINOPRIL 10 MG TAB PO SCH (08:47)
[2018-02-20] MEDS: D MANNOSE PO SCH ×2 (08:47→21:54)
[2018-02-20] MEDS: oxyCODONE IR 5 MG TAB PO PRN ×2 (08:50→13:33)
--- NOTE | 2018-02-20 12:53 | SOAPPROG ---
SOAP Progress Note Assessment/Plan: Assessment: 72-year-old woman status post fall in bed on her driveway, approximately 6-8 feet, on 02/02/2018, with subdural and intracranial hemorrhages, and status post occipital craniotomy 02/04/2018. Fell in the ICU on 02/11/2018 and suffered a scalp laceration with suturing. No subsequent change in head CT. Increased headache pain, somnolence and unwillingness to participate in therapies today, 02/18/2018. * Head CT 02/18/2018 ruled out worsening bleed. Study showed improvement in hemorrhages but continuing left frontal edema and midline shift 5 mm left to right. * Discussed with neurosurgeon Dr. Bryant who thought that there be no benefit to initiating steroids for brain edema. * Discussed in detail with patient's and daughter. Plan is to improve sleep and pain control. Doing better today, 02/20/2018, with amitriptyline 50 mg at HS, oxycodone schedule 5 mg at HS and 0600, and amantadine to improve alertness during the day. Debility status post fall and intracranial hemorrhages. * Initial functional independence measure 35 on 02/20/2018. Noted to have good strength in all extremities. Requires contact guard to moderate assistance for transfers balance and standing. She does grooming and hygiene seated with minimal assist. Upper body dressing is done with setup to standby assist. Low lower body dressing requires minimal to moderate assist. She has posterior loss of balance and right upper extremity ataxia. * PT and OT to optimize mobility and ADLs toward the supervision level though she may continue to require assistance for bathing and dressing. 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 * Needing cues to initiate any activity. Has some aphasic cares with naming. Is able to read. * Continue INFORMATICS APPLICATION ANALYST. Dysphagia to be assessed and treated per Speech and Language Pathology. Visual disturbance with likely left lower quadrant visual field cut. Further assessment per Occupational therapy. Urinary tract infection. Has been treated with ciprofloxacin for 7 days, completed 02/18/2018. * Continue cranberry supplement. Urinary retention. Due to opiates plus hydralazine plus constipation? * Failed voiding trial 02/17/2018. 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 Zaragoza catheter replaced. * Consider repeat voiding trial prior to discharge. Otherwise follow up with Urology after discharge per Hyponatremia and hypokalemia. Normal BMP 02/17/2018. * With no need for frequent blood draws or IV electrolyte replacement, discontinued PICC line, 02/17/2018. Anemia. Improving on CBC, 02/17/2018 Seizure, early onset on the day of her injury. Continuing levetiracetam per Neurosurgery. Hypertension. Blood pressure is running low. Will further decrease lisinopril which was initially at 20 mg q.day, from 10 mg to 5 mg q.day. Continue metoprolol. Followup. She has followup recommended on discharge with neurosurgeon, Dr. Bryant, in 1-2 weeks or after 02/23 or 03/02/2018. DISPOSITION: Attended staffing, 15 min. Discussed with case management, nursing, PT, OT, INFORMATICS APPLICATION ANALYST. Has good support from her and other local family members. Set tentative discharge date for 03/13/2018. 02/20/18 12:43 Subjective: Headache is improved today. She says she slept better. She was able to get out of bed and participate in therapies today. Still with constipation. Objective: Vital Signs Temp Pulse Resp BP Pulse Ox 36.9 C 96 18 107/64 97 02/20/18 08:00 02/20/18 08:47 02/20/18 08:00 02/20/18 08:47 02/20/18 08:00 Laboratory Results 02/17/18 06:10 02/17/18 06:10 02/19/18 02/20/18 02/21/18 05:59 05:59 05:59 Intake Total 1445 2107 240 Output Total 1625 1500 150 Balance -180 607 90 - Time Spent With Patient Time Spent With Patient: Greater than 35 min floor time today, including more than 50% of time in coordination of care during staffing meeting, and counseling patient and . Physical Exam - Physical Exam General Appearance: WD/WN, alert, no apparent distress, thin Respiratory: normal breath sounds, No crackles, No rhonchi, No wheezing Cardiac/Chest: regular rate, rhythm, No diastolic murmur, No systolic murmur Skin: normal color, warm/dry Neuro/Psych: alert, normal mood/affect, other (Hypophonic. Able to maintain posture seated in wheelchair.) ICD10 Worksheet Patient Problems: Problems Problem Status Onset Fracture of occipital bone of skull with loss of consciousness Acute Grand mal seizure Acute Subdural hematoma Acute Syncope Acute Traumatic subarachnoid hemorrhage Acute
[2018-02-20] MEDS: AMANTADINE HCL 100 MG/10 ML UDCUP PO SCH ×2 (13:02)
[2018-02-20] MEDS: BISACODYL 10 MG SUPP PR PRN (15:57)
[2018-02-20] MEDS: AMITRIPTYLINE HCL 50 MG TAB PO SCH (21:53)
[2018-02-21] MEDS: ACETAMINOPHEN 500 MG TAB PO SCH ×3 (06:09→21:38)
[2018-02-21] MEDS: BENEFIBER/NUTRISOURCE FIBER PKT 1 EACH PO SCH ×2 (07:57→21:49)
[2018-02-21] MEDS: levETIRAcetam 500 MG/5 ML UDCUP PO SCH ×2 (07:57→21:38)
[2018-02-21] MEDS: AMANTADINE HCL 100 MG/10 ML UDCUP PO SCH ×2 (07:57→12:37)
[2018-02-21] MEDS: oxyCODONE IR 5 MG TAB PO PRN ×3 (07:57→21:48)
[2018-02-21] MEDS: POLYETHYLENE GLYCOL 3350 17 GM PKT PO SCH (07:57)
[2018-02-21] MEDS: METOPROLOL TARTRATE 25 MG TAB PO SCH ×2 (07:58→21:40)
[2018-02-21] MEDS: LISINOPRIL 10 MG TAB PO SCH (07:59)
[2018-02-21] MEDS: D MANNOSE PO SCH ×2 (08:00→21:49)
[2018-02-21] MEDS: CRANACTIN PO SCH ×2 (08:00→21:49)
--- NOTE | 2018-02-21 14:51 | HOSPPROG ---
Hospitalist Progress Note Assessment/Plan: Assessment: 72-year-old woman p/w traumatic SDH/IPH s/p crani Plan: # Headache and somnolence. No increase in bleed on HCT, participating w/ therapy by somnolent between sessions -slept 4hrs straight last night s/p amitriptyline, continue # Intracranial hemorrhage. SDH and IPH w/ vasogenic edema and midline shift, per NSGY, no indication for steroids as this is bleed related, not mass effect -cont therapies # Urinary tract infection. S/p ciprofloxacin for 7 days, completed 02/18/2018. -Continue cranberry supplement. # Acute Urinary retention. Due to opiates -cont luna, repeat trial void prior to discharge # Hyponatremia and hypokalemia. Normal BMP 02/17/2018. -resolved # Anemia. Improving on CBC, 02/17/2018 # Seizure, early onset on the day of her injury. Continuing levetiracetam per Neurosurgery. # Chronic Hypertension. Cont lisinopril 5, cont metop Diet. Per SUB ASSEMBLY TEAM WORKER Code. Full PPx. SCDs Dispo. ADD 03/13, ongoing therapy needs. Subjective: patient lethargic s/p therapy Objective: Vital Signs Temp Pulse Resp BP Pulse Ox 36.5 C 99 18 108/69 95 02/21/18 06:57 02/21/18 07:58 02/21/18 06:57 02/21/18 07:59 02/21/18 06:57 Laboratory Results 02/17/18 06:10 02/17/18 06:10 02/20/18 02/21/18 02/22/18 05:59 05:59 05:59 Intake Total 2107 480 495 Output Total 1500 700 550 Balance 607 -220 -55 - Physical Exam Constitutional: no apparent distress, not in pain, chronically ill appearing, No uncomfortable Cardiovascular: regular rate and rhythym, no murmur, rub, or gallop, No edema Respiratory: no respiratory distress, no rales or rhonchi, clear to auscultation , other (poor insp effort) Gastrointestinal: normoactive bowel sounds, soft, non-tender abdomen, no palpable masses, No distension Neurologic: sensation intact bilaterally, No weakness Psychiatric: not anxious, flat affect, other (mumbles verbal responses to questions, lethargic but arousable to verbal stimuli), No agitated ICD10 Worksheet Patient Problems: Problems Problem Status Onset Traumatic subarachnoid hemorrhage Acute Fracture of occipital bone of skull with loss of consciousness Acute Syncope Acute Subdural hematoma Acute Grand mal seizure Acute
[2018-02-21] MEDS: AMITRIPTYLINE HCL 50 MG TAB PO SCH (21:38)
[2018-02-21] MEDS: MELATONIN 3 MG TAB PO PRN (21:47)
[2018-02-22] MEDS: ACETAMINOPHEN 500 MG TAB PO SCH ×3 (06:23→21:37)
[2018-02-22] MEDS: AMANTADINE HCL 100 MG/10 ML UDCUP PO SCH ×2 (08:00→12:05)
[2018-02-22] MEDS: LISINOPRIL 10 MG TAB PO SCH ×2 (09:32→09:54)
[2018-02-22] MEDS: METOPROLOL TARTRATE 25 MG TAB PO SCH ×2 (09:33→09:54)
[2018-02-22] MEDS: levETIRAcetam 500 MG/5 ML UDCUP PO SCH ×2 (09:33→21:38)
[2018-02-22] MEDS: POLYETHYLENE GLYCOL 3350 17 GM PKT PO SCH (09:34)
[2018-02-22] MEDS: CRANACTIN PO SCH ×2 (09:34→21:38)
[2018-02-22] MEDS: BENEFIBER/NUTRISOURCE FIBER PKT 1 EACH PO SCH ×2 (09:34→21:36)
[2018-02-22] MEDS: D MANNOSE PO SCH ×2 (09:34→21:38)
--- NOTE | 2018-02-22 12:30 | HOSPPROG ---
Hospitalist Progress Note Assessment/Plan: Assessment: 72-year-old woman p/w traumatic SDH/IPH s/p crani c/b acute encephalopathy Plan: # Headache. 2/2 ICH, resolved # Acute encephalopathy. No increase in bleed on HCT, 2/2 structural effects of ICH (w/ metabolic contributions from HypoNa, seizure, UTI), participating w/ therapy but somnolent between sessions and minimally interactive on physical exams -slept well last night s/p amitriptyline, continue -she is able to participate in therapy but very susceptible to cog fatigue and rests heavily between sessions -currently requiring sitter/aide -eating approx 25% of meals, prognosis remains guarded # Intracranial hemorrhage. SDH and IPH w/ vasogenic edema and midline shift, per NSGY, no indication for steroids as this is bleed related, no mass effect -cont therapies # Urinary tract infection. S/p ciprofloxacin for 7 days, completed 02/18/2018. -Continue cranberry supplement. # Acute Urinary retention. Due to opiates -cont luna, repeat trial void prior to discharge # Hyponatremia and hypokalemia. Normal BMP 02/17/2018. -resolved # Anemia. Improving on CBC, 02/17/2018 # Seizure, early onset on the day of her injury. Continuing levetiracetam per Neurosurgery. # Chronic Hypertension. Cont lisinopril 5, discontinued metoprolol as her BP has been 90-110 and there is no absolute indication for bblocker (which can also have cog suppressive effects) Diet. Per GAMING TABLE OPERATOR Code. Full PPx. SCDs, hold on pharm given bleed Dispo. ADD 03/13, ongoing therapy needs. Subjective: slept well o/n, ate 25% of meal this AM, no pain Objective: Vital Signs Temp Pulse Resp BP Pulse Ox 36.4 C 92 14 105/68 95 02/22/18 06:28 02/22/18 08:00 02/22/18 06:28 02/22/18 09:54 02/21/18 20:40 Laboratory Results 02/17/18 06:10 02/17/18 06:10 02/21/18 02/22/18 02/23/18 05:59 05:59 05:59 Intake Total 480 975 60 Output Total 700 1750 100 Balance -220 -775 -40 - Physical Exam Constitutional: no apparent distress, not in pain, unkempt, No uncomfortable Cardiovascular: regular rate and rhythym, no murmur, rub, or gallop, No edema Respiratory: no respiratory distress, no rales or rhonchi, clear to auscultation Gastrointestinal: normoactive bowel sounds, soft, non-tender abdomen, no palpable masses, No distension Neurologic: weakness (moving all 4 ext spontaneously), other (AAOx0, ) Psychiatric: not anxious, encephalopathic, other (lethargic and arousable to verbal stimuli), No agitated ICD10 Worksheet Patient Problems: Problems Problem Status Onset Fracture of occipital bone of skull with loss of consciousness Acute Grand mal seizure Acute Subdural hematoma Acute Syncope Acute Traumatic subarachnoid hemorrhage Acute
[2018-02-22] MEDS: MELATONIN 3 MG TAB PO PRN (21:37)
[2018-02-22] MEDS: AMITRIPTYLINE HCL 50 MG TAB PO SCH (21:38)
[2018-02-23] MEDS: ACETAMINOPHEN 500 MG TAB PO SCH ×3 (06:30→21:28)
[2018-02-23] MEDS: oxyCODONE IR 5 MG TAB PO PRN ×2 (06:45→15:36)
[2018-02-23] MEDS: POLYETHYLENE GLYCOL 3350 17 GM PKT PO SCH (08:18)
[2018-02-23] MEDS: BENEFIBER/NUTRISOURCE FIBER PKT 1 EACH PO SCH ×2 (08:18→21:29)
[2018-02-23] MEDS: levETIRAcetam 500 MG/5 ML UDCUP PO SCH ×2 (08:20→21:28)
[2018-02-23] MEDS: AMANTADINE HCL 100 MG/10 ML UDCUP PO SCH ×2 (08:21→12:23)
[2018-02-23] MEDS: CRANACTIN PO SCH ×2 (08:22→21:30)
[2018-02-23] MEDS: D MANNOSE PO SCH ×2 (08:22→21:30)
[2018-02-23] MEDS: LISINOPRIL 10 MG TAB PO SCH (08:23)
--- NOTE | 2018-02-23 12:34 | SOAPPROG ---
SOAP Progress Note Assessment/Plan: Assessment: 72-year-old woman status post fall in bed on her driveway, approximately 6-8 feet, on 02/02/2018, with subdural and intracranial hemorrhages, and status post occipital craniotomy 02/04/2018. Fell in the ICU on 02/11/2018 and suffered a scalp laceration with suturing. No subsequent change in head CT. Debility status post fall and intracranial hemorrhages. * Initial functional independence measure 35 on 02/20/2018. Noted to have good strength in all extremities. Requires contact guard to moderate assistance for transfers balance and standing. She does grooming and hygiene seated with minimal assist. Upper body dressing is done with setup to standby assist. Low lower body dressing requires minimal to moderate assist. She has posterior loss of balance and right upper extremity ataxia. * Mobility improving to contact guard assist level and has increased endurance. * Head CT 02/18/2018 ruled out worsening bleed. Study showed improvement in hemorrhages but continuing left frontal edema and midline shift 5 mm left to right. Function has improved since titration of amitriptyline and addition of amantadine with improved alertness and improvement in headache pain. * PT and OT to optimize mobility and ADLs toward the supervision level though she may continue to require assistance for bathing and dressing. 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 * Needing cues to initiate any activity. Has some aphasic cares with naming. Is able to read. * Continue SHELL REPRINT OPERATOR. Dysphagia to be assessed and treated per Speech and Language Pathology. Visual disturbance with likely left lower quadrant visual field cut. Further assessment per Occupational therapy. Urinary tract infection. Has been treated with ciprofloxacin for 7 days, completed 02/18/2018. * Continue cranberry supplement. Urinary retention. Due to opiates plus hydralazine plus constipation? * Failed voiding trial 02/17/2018. 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 Zaragoza catheter replaced. * Consider repeat voiding trial prior to discharge. Otherwise follow up with Urology after discharge per Hyponatremia and hypokalemia. Normal BMP 02/17/2018. * With no need for frequent blood draws or IV electrolyte replacement, discontinued PICC line, 02/17/2018. Anemia. Improving on CBC, 02/17/2018 Seizure, early onset on the day of her injury. Continuing levetiracetam per Neurosurgery. Hypertension. Blood pressure is running low. Will further decrease lisinopril which was initially at 20 mg q.day, from 10 mg to 5 mg q.day. Metoprolol has been discontinued. Followup. She has followup recommended on discharge with neurosurgeon, Dr. Bryant, in 1-2 weeks or after 02/23 or 03/02/2018. DISPOSITION: Has good support from her and other local family members. Set tentative discharge date for 03/13/2018. 02/23/18 12:36 Subjective: Complains of a headache this morning. reports that she had increased activity and was doing well yesterday and is not doing so well today. She slept well. Objective: Vital Signs Temp Pulse Resp BP Pulse Ox 36.3 C 94 14 120/72 99 02/23/18 06:36 02/23/18 06:36 02/23/18 06:36 02/23/18 08:23 02/23/18 06:36 Laboratory Results 02/17/18 06:10 02/17/18 06:10 02/22/18 02/23/18 02/24/18 05:59 05:59 05:59 Intake Total 975 900 175 Output Total 1750 0 Balance -775 -1150 175 Physical Exam - Physical Exam General Appearance: WD/WN, alert, no apparent distress Respiratory: normal breath sounds, No crackles, No rhonchi, No wheezing Cardiac/Chest: regular rate, rhythm, No edema, No diastolic murmur, No systolic murmur Skin: normal color, warm/dry Extremities: No pedal edema Neuro/Psych: alert, other (Napping but easily awakened, lying on her left side. Hypophonic.) ICD10 Worksheet Patient Problems: Problems Problem Status Onset Fracture of occipital bone of skull with loss of consciousness Acute Grand mal seizure Acute Subdural hematoma Acute Syncope Acute Traumatic subarachnoid hemorrhage Acute
[2018-02-23] MEDS: AMITRIPTYLINE HCL 50 MG TAB PO SCH (21:29)
[2018-02-25] MEDS ORDERED: oxyCODONE IR 5 MG TAB PO PRN (00:52)
[2018-02-25] MEDS: CRANACTIN PO SCH ×4 (08:27→20:49)
[2018-02-25] MEDS: BENEFIBER/NUTRISOURCE FIBER PKT 1 EACH PO SCH ×3 (08:27→20:49)
[2018-02-25] MEDS: D MANNOSE PO SCH ×4 (08:27→20:49)
[2018-02-25] MEDS: LISINOPRIL 10 MG TAB PO SCH ×2 (08:28→15:39)
[2018-02-25] MEDS: levETIRAcetam 500 MG/5 ML UDCUP PO SCH ×3 (08:28→20:48)
[2018-02-25] MEDS: POLYETHYLENE GLYCOL 3350 17 GM PKT PO SCH ×2 (08:31→15:40)
--- NOTE | 2018-02-25 09:45 | SOAPPROG ---
SOAP Progress Note Assessment/Plan: Assessment: 72-year-old woman status post fall from planter bed onto her driveway, approximately 6-8 feet, on 02/02/2018, with subdural and intracranial hemorrhages , and status post occipital craniotomy 02/04/2018. Fell in the ICU on 02/11/2018 and suffered a scalp laceration with suturing. No subsequent change in head CT. Debility status post fall and intracranial hemorrhages. * Initial functional independence measure 35 on 02/20/2018. Noted to have good strength in all extremities. Requires contact guard to moderate assistance for transfers balance and standing. She does grooming and hygiene seated with minimal assist. Upper body dressing is done with setup to standby assist. Low lower body dressing requires minimal to moderate assist. She has posterior loss of balance and right upper extremity ataxia. * Mobility improving to contact guard assist level and has increased endurance. * Head CT 02/18/2018 ruled out worsening bleed. Study showed improvement in hemorrhages but continuing left frontal edema and midline shift 5 mm left to right. Function has improved since titration of amitriptyline and addition of amantadine with improved alertness and improvement in headache pain. * PT and OT to optimize mobility and ADLs toward the supervision level though she may continue to require assistance for bathing and dressing. 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 * Needing cues to initiate any activity. Has some aphasic cares with naming. Is able to read. * Continue DOOR WORKER. Dysphagia to be assessed and treated per Speech and Language Pathology. Visual disturbance with likely left lower quadrant visual field cut. Further assessment per Occupational therapy. Question of thrush. More likely a brownish coating on the tongue. Nystatin initiated 02/24/2018. No change noted 02/25/2018 and she has no complaint regarding irritation in her mouth. Will discontinue nystatin 02/25/2018. Insomnia. Possibly related to increased dose of amantadine. reports she has chronic insomnia premorbidly. Observe for better sleep tonight, 2017. Consider reducing afternoon dose of amantadine. Tachycardia, 02/25/2018. Unclear etiology. Metoprolol was discontinued 2017 and tachycardia has developed since then. Continue to monitor. Urinary tract infection. Has been treated with ciprofloxacin for 7 days, completed 02/18/2018. * Continue cranberry supplement. Urinary retention. Due to opiates plus hydralazine plus constipation? * Failed voiding trial 02/17/2018. 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 Zaragoza catheter replaced. * Consider repeat voiding trial prior to discharge. Otherwise follow up with Urology after discharge per Hyponatremia and hypokalemia. Normal BMP 02/17/2018. * With no need for frequent blood draws or IV electrolyte replacement, discontinued PICC line, 02/17/2018. Anemia. Improving on CBC, 02/17/2018 Seizure, early onset on the day of her injury. Continuing levetiracetam per Neurosurgery. Hypertension. Blood pressure is running low. Will further decrease lisinopril which was initially at 20 mg q.day, from 10 mg to 5 mg q.day. Metoprolol has been discontinued. Followup. She has followup recommended on discharge with neurosurgeon, Dr. Bryant, in 1-2 weeks or after 02/23 or 03/02/2018. DISPOSITION: Has good support from her and other local family members. Set tentative discharge date for 03/13/2018. 02/25/18 09:40 02/25/18 15:36 Subjective: Complains of poor sleep last night. Feels fatigued today. Amantadine was increased from 100 mg twice daily to 200 mg twice daily yesterday otherwise without complaint. No cough or dyspnea. No fevers or chills. thinks he has noticed some increased nervousness. Objective: Vital Signs Temp Pulse Resp BP Pulse Ox 36.6 C 107 H 16 95/63 L 94 02/25/18 08:00 02/25/18 08:00 02/25/18 08:00 02/25/18 08:28 02/25/18 08:00 Laboratory Results 02/17/18 06:10 02/17/18 06:10 02/24/18 02/25/18 02/26/18 05:59 05:59 05:59 Intake Total 695 180 100 Output Total 875 800 Balance -180 -620 100 Physical Exam - Physical Exam General Appearance: WD/WN, alert, no apparent distress, other (Napping after breakfast, easily awakened.) Respiratory: normal breath sounds, No crackles, No rhonchi, No wheezing Cardiac/Chest: regular rate, rhythm, No edema, No diastolic murmur, No systolic murmur Skin: normal color, warm/dry Extremities: No calf tenderness Neuro/Psych: alert, normal mood/affect ICD10 Worksheet Patient Problems: Problems Problem Status Onset Fracture of occipital bone of skull with loss of consciousness Acute Grand mal seizure Acute Subdural hematoma Acute Syncope Acute Traumatic subarachnoid hemorrhage Acute
[2018-02-25] MEDS: AMANTADINE HCL 100 MG/10 ML UDCUP PO SCH ×4 (13:09→15:43)
[2018-02-25] MEDS: NYSTATIN SUSP 500000 UNIT/5 ML UDCUP PO SCH ×2 (13:11→15:40)
[2018-02-25] MEDS: ACETAMINOPHEN 500 MG TAB PO SCH ×4 (13:13→20:49)
[2018-02-25] MEDS: AMITRIPTYLINE HCL 50 MG TAB PO SCH ×2 (15:30→20:48)
[2018-02-25] MEDS: MELATONIN 3 MG TAB PO PRN (20:49)
[2018-02-26] MEDS: ACETAMINOPHEN 500 MG TAB PO SCH ×3 (06:10→21:12)
[2018-02-26] MEDS: AMANTADINE HCL 100 MG/10 ML UDCUP PO SCH ×2 (06:10→12:31)
[2018-02-26] MEDS ORDERED: BENEFIBER/NUTRISOURCE FIBER PKT 1 EACH PO PRN (08:32)
[2018-02-26] MEDS: D MANNOSE PO SCH ×2 (08:56→21:12)
[2018-02-26] MEDS: CRANACTIN PO SCH ×2 (08:56→21:12)
[2018-02-26] MEDS: levETIRAcetam 500 MG/5 ML UDCUP PO SCH ×2 (08:56→21:12)
[2018-02-26] MEDS: LISINOPRIL 10 MG TAB PO SCH (08:56)
--- NOTE | 2018-02-26 10:23 | SOAPPROG ---
SOAP Progress Note Assessment/Plan: 72-year-old woman status post traumatic brain injury 02/02/2018 with intracranial hemorrhage status post occipital craniotomy on 02/04/2018, status post 6-8 ft fall Today's update: May be having some delirium at night, duration unclear. Minimized allergic medications including stopping the amitriptyline despite it is apparent benefit for her headache management. Discontinue lisinopril as her blood pressure has been controlled, starting low-dose propranolol which will have an effect on blood pressure but the main reason for starting it will be headache prophylaxis. Discussed with family and staff in the room the importance of frequent rehabilitation for delirium management. Bowel meds have been refused, switching to as needed bowel program. Continue the amantadine 200 mg p.o. In the morning and at noon, good effect on her engagement with therapies. Use caution in the setting of delirium however. Consider decreasing dose to 100 mg p.o. In the morning and at noon. A total of 35 min was spent on the floor in the care of the patient, the majority of which was spent counseling and coordination of care regarding delirium prevention and management strategies. Additional issues reviewed but without change today includes dysphagia, visual disturbance/cortical blindness, urinary tract infection, hyponatremia and hypokalemia, anemia, early seizure, hypertension. 02/19/18 10:21 02/19/18 10:25 02/19/18 10:33 02/19/18 10:35 02/26/18 10:19 Subjective: Chief complaint: Poor sleep Patient sources that sleep is not been particularly good. She does endorse seeing things that are not there at night, having some confusion. Endorses these hallucinations both auditory and visual, described a situation where there were 2 people working in her room at night. She recognize that they were not real. She thinks this is been going on for few days, but is not sure. No new shortness of breath or chest pain, no new numbness, tingling, or weakness. Reports indicate that she has been participating better in therapies and has better alertness. Headache has also been greatly improved. Objective: Vital Signs Temp Pulse Resp BP Pulse Ox 36.6 C 101 H 14 111/70 91 L 02/26/18 06:16 02/26/18 06:16 02/26/18 06:16 02/26/18 08:56 02/26/18 06:16 Laboratory Results 02/17/18 06:10 02/17/18 06:10 02/25/18 02/26/18 02/27/18 05:59 05:59 05:59 Intake Total 180 400 480 Output Total 800 1565 75 Balance -620 -1165 405 Physical Exam - Physical Exam General Appearance: WD/WN, alert (Arousable but drowsy), no apparent distress EENT: No scleral icterus (R), No scleral icterus (L) Respiratory: No respiratory distress, No accessory muscle use Cardiac/Chest: normal peripheral pulses, regular rate, rhythm, No edema Abdomen: soft Skin: normal color, warm/dry, No cyanosis, No diaphoresis Extremities: No pedal edema, No swelling Neuro/Psych: normal mood/affect, No oriented x 3 (Oriented to self and place but not the date.) ICD10 Worksheet Patient Problems: Problems Problem Status Onset Fracture of occipital bone of skull with loss of consciousness Acute Grand mal seizure Acute Subdural hematoma Acute Syncope Acute Traumatic subarachnoid hemorrhage Acute
[2018-02-26] MEDS: oxyCODONE IR 5 MG TAB PO PRN (12:31)
[2018-02-26] MEDS: PROPRANOLOL HCL 10 MG TAB PO SCH ×2 (16:58→21:11)
[2018-02-26] MEDS: MELATONIN 3 MG TAB PO SCH (21:11)
[2018-02-27] MEDS: ACETAMINOPHEN 500 MG TAB PO SCH ×3 (06:19→21:19)
[2018-02-27] MEDS: AMANTADINE HCL 100 MG/10 ML UDCUP PO SCH ×2 (06:19→12:17)
[2018-02-27] MEDS: CRANACTIN PO SCH ×2 (08:36→21:20)
[2018-02-27] MEDS: levETIRAcetam 500 MG/5 ML UDCUP PO SCH ×2 (08:36→21:19)
[2018-02-27] MEDS: D MANNOSE PO SCH ×2 (08:36→21:20)
[2018-02-27] MEDS: PROPRANOLOL HCL 10 MG TAB PO SCH ×3 (08:42→21:19)
[2018-02-27] MEDS: oxyCODONE IR 5 MG TAB PO PRN ×2 (08:47→21:19)
--- NOTE | 2018-02-27 10:53 | SOAPPROG ---
SOAP Progress Note Assessment/Plan: Assessment: 72-year-old woman status post fall from planter bed onto her driveway, approximately 6-8 feet, on 02/02/2018, with subdural and intracranial hemorrhages , and status post occipital craniotomy 02/04/2018. Fell in the ICU on 02/11/2018 and suffered a scalp laceration with suturing. No subsequent change in head CT. Debility status post fall and intracranial hemorrhages. * Initial functional independence measure 35 on 02/20/2018, increased to 61 as of 02/27/2018. Standby assist to contact guard assist for mobility. Ambulating 150 -200 feet with a front wheeled walker. Was outside yesterday. Needs contact guard assist for guidance. Often keeps eyes closed. Not able to follow instructions to test Esquivel balance inventory. Upper body dressing requires standby assist, lower body varies, minimal to moderate assist. Minimal assist for toilet transfer and for clothing management while toileting, minimal assist for shower transfer and for bathing. Impaired depth perception. * Head CT 02/18/2018 ruled out worsening bleed. Study showed improvement in hemorrhages but continuing left frontal edema and midline shift 5 mm left to right. Function has improved since titration of amitriptyline and addition of amantadine with improved alertness and improvement in headache pain. * PT and OT to optimize mobility and ADLs toward the supervision level though she may continue to require assistance for bathing and dressing. 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 * OLOG 19 on 02/25/2018, 22 on 02/26/2018. 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 * Needing cues for attention, initiation and persistence. Able to do picture recognition and can read on analog clock. * Continue DICTATING MACHINE TRANSCRIBER. Dysphagia, on DD 2 diet texture. * Trial of DD 3 today, 02/27/2018. Impaired attention, initiation and persistence affect swallowing function. * Continue DICTATING MACHINE TRANSCRIBER. Visual disturbance difficult to assess. Continue attempts per Occupational therapy. Fatigue. * Likely needs increased rest between periods of activity. Family provides stimulation, either by reading to her or by having conversations while in the room with her. * TSH and other lab studies were normal on 02/03/2018. Hypertension. * Lisinopril was tapered from 20 mg to 5 mg q.day and metoprolol was discontinued because blood pressure was running low. Starting 02/27/2018, propranolol was initiated as a headache preventive. * Continue to monitor blood pressure and consider increasing propranolol if headaches persist verses restarting lisinopril if blood pressure becomes high. Tachycardia, 02/25/2018. Unclear etiology. Metoprolol was discontinued 2017 and tachycardia has developed since then. Continue to monitor. Urinary retention. Due to opiates plus hydralazine plus constipation? * Failed voiding trial 02/17/2018. 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 Zaragoza catheter replaced. * Repeat voiding trial 03/02 - 03/03/2018. If unsuccessful, follow up with Urology after discharge. Urinary tract infection. Has been treated with ciprofloxacin for 7 days, completed 02/18/2018. * Continue cranberry supplement. Hyponatremia and hypokalemia. Normal BMP 02/17/2018. * With no need for frequent blood draws or IV electrolyte replacement, discontinued PICC line, 02/17/2018. Anemia. Improving on CBC, 02/17/2018 Seizure, early onset on the day of her injury. Continuing levetiracetam per Neurosurgery. Prophylaxis. Anticoagulation has been contraindicated in the setting of recent intracranial hemorrhages. Ambulation is improving and she has much lower risk of DVT than she did initially. Followup. She has followup recommended on discharge with neurosurgeon, Dr. Bryant, in 1-2 weeks or after 02/23 or 03/02/2018. DISPOSITION: Attended staffing, 15 min. Discussed with case management, nursing, dietitian, PT, OT, DICTATING MACHINE TRANSCRIBER. Attended family meeting, 30 min, , daughter and multiple other family members present. Discussed progress and prognosis. Discussed need for brain rest between therapy sessions. Has good support from and other local family members. Continue discharge goal of 03/13/2018. 02/27/18 13:27 Subjective: Complains of headache this morning. Reports that she slept well. Otherwise not in pain. No cough or dyspnea, no fevers or chills. Complains of fatigue. Objective: Vital Signs Temp Pulse Resp BP Pulse Ox 36.7 C 103 H 16 109/72 95 02/27/18 06:24 02/27/18 08:42 02/27/18 06:24 02/27/18 08:42 02/27/18 06:24 Laboratory Results 02/17/18 06:10 02/17/18 06:10 02/26/18 02/27/18 02/28/18 05:59 05:59 05:59 Intake Total 400 1280 240 Output Total 1565 0010 Balance -1165 -1170 240 - Time Spent With Patient Time Spent With Patient: Greater than 30 min floor time today, including more than 50% of time in coordination of care during staffing and counseling family during family meeting. Physical Exam - Physical Exam General Appearance: WD/WN, alert, no apparent distress Respiratory: No respiratory distress, No accessory muscle use Skin: normal color, warm/dry Neuro/Psych: alert, normal mood/affect ICD10 Worksheet Patient Problems: Problems Problem Status Onset Fracture of occipital bone of skull with loss of consciousness Acute Grand mal seizure Acute Subdural hematoma Acute Syncope Acute Traumatic subarachnoid hemorrhage Acute
[2018-02-27] MEDS: MELATONIN 3 MG TAB PO SCH (21:20)
[2018-02-28] MEDS: ONDANSETRON DISINTEGRATING 4 MG TAB PO PRN ×3 (03:23→21:35)
[2018-02-28] MEDS: oxyCODONE IR 5 MG TAB PO PRN ×3 (03:24→17:59)
[2018-02-28] MEDS: AMANTADINE HCL 100 MG/10 ML UDCUP PO SCH ×2 (06:17→12:21)
[2018-02-28] MEDS: ACETAMINOPHEN 500 MG TAB PO SCH ×3 (06:18→21:31)
[2018-02-28] MEDS: POLYETHYLENE GLYCOL 3350 17 GM PKT PO PRN (08:31)
[2018-02-28] MEDS: CHOLECALCIFEROL VIT D3 2,000 UNITS TAB/CAP PO SCH (08:33)
[2018-02-28] MEDS: PROPRANOLOL HCL 10 MG TAB PO SCH ×3 (08:33→21:30)
[2018-02-28] MEDS: levETIRAcetam 500 MG/5 ML UDCUP PO SCH ×2 (08:34→21:29)
[2018-02-28] MEDS: CRANACTIN PO SCH ×2 (08:57→21:30)
[2018-02-28] MEDS: D MANNOSE PO SCH ×2 (08:57→21:30)
[2018-02-28] MEDS ORDERED: MAGNESIUM HYDROXIDE 30 ML UDCUP PO PRN (13:11)
--- NOTE | 2018-02-28 13:23 | SOAPPROG ---
SOAP Progress Note Assessment/Plan: Assessment: 72-year-old woman status post fall from planter bed onto her driveway, approximately 6-8 feet, on 02/02/2018, with subdural and intracranial hemorrhages , and status post occipital craniotomy 02/04/2018. Fell in the ICU on 02/11/2018 and suffered a scalp laceration with suturing. No subsequent change in head CT. Debility status post fall and intracranial hemorrhages. * Initial functional independence measure 35 on 02/20/2018, increased to 61 as of 02/27/2018. Standby assist to contact guard assist for mobility. Ambulating 150 -200 feet with a front wheeled walker. Was outside yesterday. Needs contact guard assist for guidance. Often keeps eyes closed. Not able to follow instructions to test Esquivel balance inventory. Upper body dressing requires standby assist, lower body varies, minimal to moderate assist. Minimal assist for toilet transfer and for clothing management while toileting, minimal assist for shower transfer and for bathing. Impaired depth perception. * Head CT 02/18/2018 ruled out worsening bleed. Study showed improvement in hemorrhages but continuing left frontal edema and midline shift 5 mm left to right. Function has improved since titration of amitriptyline and addition of amantadine with improved alertness and improvement in headache pain. * PT and OT to optimize mobility and ADLs toward the supervision level though she may continue to require assistance for bathing and dressing. 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 * OLOG 19 on 02/25/2018, 22 on 02/26/2018. 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 * Needing cues for attention, initiation and persistence. Able to do picture recognition and can read on analog clock. * Continue TURN OUT. Dysphagia, on DD 2 diet texture. * Trial of DD 3 today, 02/27/2018. Impaired attention, initiation and persistence affect swallowing function. * Continue TURN OUT. Nausea/poor appetite * will check UA, labs * maybe constipation causing - will try to have BM Visual disturbance difficult to assess. Continue attempts per Occupational therapy. Fatigue. * Likely needs increased rest between periods of activity. Family provides stimulation, either by reading to her or by having conversations while in the room with her. * TSH and other lab studies were normal on 02/03/2018. Hypertension. * Lisinopril was tapered from 20 mg to 5 mg q.day and metoprolol was discontinued because blood pressure was running low. Starting 02/27/2018, propranolol was initiated as a headache preventive. * Continue to monitor blood pressure and consider increasing propranolol if headaches persist verses restarting lisinopril if blood pressure becomes high. Tachycardia, 02/25/2018. Unclear etiology. Metoprolol was discontinued 2017 and tachycardia has developed since then. Continue to monitor. Urinary retention. Due to opiates plus hydralazine plus constipation? * Failed voiding trial 02/17/2018. 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 Zaragoza catheter replaced. * Repeat voiding trial 03/02 - 03/03/2018. If unsuccessful, follow up with Urology after discharge. Urinary tract infection. Has been treated with ciprofloxacin for 7 days, completed 02/18/2018. * Continue cranberry supplement. Hyponatremia and hypokalemia. Normal BMP 02/17/2018. * With no need for frequent blood draws or IV electrolyte replacement, discontinued PICC line, 02/17/2018. Anemia. Improving on CBC, 02/17/2018 Seizure, early onset on the day of her injury. Continuing levetiracetam per Neurosurgery. Prophylaxis. Anticoagulation has been contraindicated in the setting of recent intracranial hemorrhages. Ambulation is improving and she has much lower risk of DVT than she did initially. Followup. She has followup recommended on discharge with neurosurgeon, Dr. Bryant, in 1-2 weeks or after 02/23 or 03/02/2018. Plan: 02/28/18 13:22 Subjective: low appetite. nauseous with 1 episode vomiting. no abd pain. no chills. no cough Objective: Vital Signs Temp Pulse Resp BP Pulse Ox 36.4 C 92 16 130/85 H 95 02/28/18 07:01 02/28/18 07:01 02/28/18 07:01 02/28/18 07:01 02/28/18 07:01 Laboratory Results 02/17/18 06:10 02/17/18 06:10 02/27/18 02/28/18 03/01/18 05:59 05:59 05:59 Intake Total 1280 490 480 Output Total 2450 1500 900 Balance -1170 -1010 -420 Physical Exam - Physical Exam General Appearance: WD/WN, alert, no apparent distress Neck: supple Respiratory: lungs clear, normal breath sounds Cardiac/Chest: regular rate, rhythm, No edema Abdomen: non-tender, soft, distended (mild) Skin: normal color, warm/dry Neuro/Psych: alert, normal mood/affect ICD10 Worksheet Patient Problems: Problems Problem Status Onset Fracture of occipital bone of skull with loss of consciousness Acute Grand mal seizure Acute Subdural hematoma Acute Syncope Acute Traumatic subarachnoid hemorrhage Acute
[2018-02-28] MEDS ORDERED: CEFUROXIME AXETIL 250 MG TAB PO SCH (21:00)
[2018-02-28] MEDS: NITROFURANTOIN MACROBID 100 MG CAP PO SCH (21:30)
[2018-02-28] MEDS: MELATONIN 3 MG TAB PO SCH (21:31)
[2018-03-01] MEDS: AMANTADINE HCL 100 MG/10 ML UDCUP PO SCH ×2 (06:15→12:34)
[2018-03-01] MEDS: ACETAMINOPHEN 500 MG TAB PO SCH ×3 (06:15→20:59)
[2018-03-01 08:08] LABS: PLATELET COUNT 288 10^3/uL (150-400)
[2018-03-01] MEDS: POLYETHYLENE GLYCOL 3350 17 GM PKT PO PRN (08:23)
[2018-03-01] MEDS: CRANACTIN PO SCH ×2 (08:25→20:56)
[2018-03-01] MEDS: D MANNOSE PO SCH ×2 (08:25→20:56)
[2018-03-01] MEDS: levETIRAcetam 500 MG/5 ML UDCUP PO SCH ×2 (08:26→20:59)
[2018-03-01] MEDS: NITROFURANTOIN MACROBID 100 MG CAP PO SCH ×2 (08:27→21:07)
[2018-03-01] MEDS: PROPRANOLOL HCL 10 MG TAB PO SCH ×3 (08:29→20:59)
[2018-03-01] MEDS: CHOLECALCIFEROL VIT D3 2,000 UNITS TAB/CAP PO SCH (08:30)
[2018-03-01] MEDS: BIOTENE DRY MOUTH ORAL RINSE 237 ML BTL MM PRN (11:39)
[2018-03-01] MEDS: MELATONIN 3 MG TAB PO SCH (21:06)
--- NOTE | 2018-03-01 21:17 | SOAPPROG ---
SOAP Progress Note Assessment/Plan: Assessment: 72-year-old woman status post fall from planter bed onto her driveway, approximately 6-8 feet, on 02/02/2018, with subdural and intracranial hemorrhages , and status post occipital craniotomy 02/04/2018. Fell in the ICU on 02/11/2018 and suffered a scalp laceration with suturing. No subsequent change in head CT. Debility status post fall and intracranial hemorrhages. * Initial functional independence measure 35 on 02/20/2018, increased to 61 as of 02/27/2018. Standby assist to contact guard assist for mobility. Ambulating 150 -200 feet with a front wheeled walker. Was outside yesterday. Needs contact guard assist for guidance. Often keeps eyes closed. Not able to follow instructions to test Esquivel balance inventory. Upper body dressing requires standby assist, lower body varies, minimal to moderate assist. Minimal assist for toilet transfer and for clothing management while toileting, minimal assist for shower transfer and for bathing. Impaired depth perception. * Head CT 02/18/2018 ruled out worsening bleed. Study showed improvement in hemorrhages but continuing left frontal edema and midline shift 5 mm left to right. Function has improved since titration of amitriptyline and addition of amantadine with improved alertness and improvement in headache pain. * PT and OT to optimize mobility and ADLs toward the supervision level though she may continue to require assistance for bathing and dressing. 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 * OLOG 19 on 02/25/2018, 22 on 02/26/2018. 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 * Needing cues for attention, initiation and persistence. Able to do picture recognition and can read on analog clock. * Continue HYDROGEN POWER PLANT MANAGER. Dysphagia, on DD 2 diet texture. * Trial of DD 3 today, 02/27/2018. Impaired attention, initiation and persistence affect swallowing function. * Continue HYDROGEN POWER PLANT MANAGER. Nausea/poor appetite * U/A consistent with UTi but with luna * feels better after started Macrobid but not completely sure she has infection * would do short course of abx - maybe 5 days and wait for cultures Visual disturbance difficult to assess. Continue attempts per Occupational therapy. Fatigue. * Likely needs increased rest between periods of activity. Family provides stimulation, either by reading to her or by having conversations while in the room with her. * TSH and other lab studies were normal on 02/03/2018. Hypertension. * Lisinopril was tapered from 20 mg to 5 mg q.day and metoprolol was discontinued because blood pressure was running low. Starting 02/27/2018, propranolol was initiated as a headache preventive. * Continue to monitor blood pressure and consider increasing propranolol if headaches persist verses restarting lisinopril if blood pressure becomes high. Tachycardia, 02/25/2018. Unclear etiology. Metoprolol was discontinued 2017 and tachycardia has developed since then. Continue to monitor. Urinary retention. Due to opiates plus hydralazine plus constipation? * Failed voiding trial 02/17/2018. 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 Luna catheter replaced. * Repeat voiding trial 03/02 - 03/03/2018. If unsuccessful, follow up with Urology after discharge. Urinary tract infection. Has been treated with ciprofloxacin for 7 days, completed 02/18/2018. * Restarted macrobid 02/28/2018 Hyponatremia and hypokalemia. Normal BMP 02/17/2018. * With no need for frequent blood draws or IV electrolyte replacement, discontinued PICC line, 02/17/2018. Anemia. Improving on CBC, 02/17/2018 Seizure, early onset on the day of her injury. Continuing levetiracetam per Neurosurgery. Prophylaxis. Anticoagulation has been contraindicated in the setting of recent intracranial hemorrhages. Ambulation is improving and she has much lower risk of DVT than she did initially. Followup. She has followup recommended on discharge with neurosurgeon, Dr. Bryant, in 1-2 weeks or after 02/23 or 03/02/2018. Plan: 02/28/18 13:22 03/01/18 21:15 Subjective: feels better today. eating more. no nausea Objective: Vital Signs Temp Pulse Resp BP Pulse Ox 36.7 C 75 15 134/80 H 95 03/01/18 18:31 03/01/18 20:59 03/01/18 18:31 03/01/18 20:59 03/01/18 18:31 Laboratory Results 03/01/18 07:52 03/01/18 07:52 02/28/18 03/01/18 03/02/18 05:59 05:59 05:59 Intake Total 490 900 100 Output Total 1500 2300 1450 Balance -1010 -1400 -1350 Physical Exam - Physical Exam General Appearance: WD/WN, alert, no apparent distress Neck: supple Respiratory: lungs clear, normal breath sounds, No respiratory distress Cardiac/Chest: regular rate, rhythm, No edema Abdomen: non-tender, soft Skin: warm/dry Neuro/Psych: alert, normal mood/affect, oriented x 3 ICD10 Worksheet Patient Problems: Problems Problem Status Onset Fracture of occipital bone of skull with loss of consciousness Acute Grand mal seizure Acute Subdural hematoma Acute Syncope Acute Traumatic subarachnoid hemorrhage Acute
[2018-03-02] MEDS: ACETAMINOPHEN 500 MG TAB PO SCH ×3 (06:19→21:03)
[2018-03-02] MEDS: AMANTADINE HCL 100 MG/10 ML UDCUP PO SCH ×2 (07:19→12:04)
[2018-03-02] MEDS: NITROFURANTOIN MACROBID 100 MG CAP PO SCH ×2 (08:03→21:04)
[2018-03-02] MEDS: PROPRANOLOL HCL 10 MG TAB PO SCH ×3 (08:03→21:03)
[2018-03-02] MEDS: CHOLECALCIFEROL VIT D3 2,000 UNITS TAB/CAP PO SCH (08:03)
[2018-03-02] MEDS: CRANACTIN PO SCH ×2 (08:04→21:05)
[2018-03-02] MEDS: levETIRAcetam 500 MG/5 ML UDCUP PO SCH (08:04)
[2018-03-02] MEDS: D MANNOSE PO SCH ×2 (08:04→21:05)
--- NOTE | 2018-03-02 09:44 | SOAPPROG ---
SOAP Progress Note Assessment/Plan: Assessment: 72-year-old woman status post fall from planter bed onto her driveway, approximately 6-8 feet, on 02/02/2018, with subdural and intracranial hemorrhages , and status post occipital craniotomy 02/04/2018. Fell in the ICU on 02/11/2018 and suffered a scalp laceration with suturing. No subsequent change in head CT. Debility status post fall and intracranial hemorrhages. * Initial functional independence measure 35 on 02/20/2018, increased to 61 as of 02/27/2018. Standby assist to contact guard assist for mobility. Ambulating 150 -200 feet with a front wheeled walker. Was outside 02/26/2018. Needs contact guard assist for guidance. Often keeps eyes closed. Not able to follow instructions to test Esquivel balance inventory. Upper body dressing requires standby assist, lower body varies, minimal to moderate assist. Minimal assist for toilet transfer and for clothing management while toileting, minimal assist for shower transfer and for bathing. Impaired depth perception. * Head CT 02/18/2018 ruled out worsening bleed. Study showed improvement in hemorrhages but continuing left frontal edema and midline shift 5 mm left to right. Function has improved since titration of amitriptyline and addition of amantadine with improved alertness and improvement in headache pain. * PT and OT to optimize mobility and ADLs toward the supervision level though she may continue to require assistance for bathing and dressing. 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 * OLOG 19 on 02/25/2018, 22 on 02/26/2018. 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 * Needing cues for attention, initiation and persistence. Able to do picture recognition and can read on analog clock. * Continue CAMPER ASSEMBLER. Dysphagia, advanced to DD 3 diet on 02/27/2018. * Impaired attention, initiation and persistence affect swallowing function. * Continue CAMPER ASSEMBLER. Visual disturbance difficult to assess. Continue attempts per Occupational therapy. Fatigue. * Likely needs increased rest between periods of activity. Family provides stimulation, either by reading to her or by having conversations while in the room with her. * TSH and other lab studies were normal on 02/03/2018. * Need for brain rest, avoiding overstimulation, and scheduling rest breaks, discussed with family on 02/27/2018. Hypertension. * Lisinopril was tapered from 20 mg to 5 mg q.day and metoprolol was discontinued because blood pressure was running low. Starting 02/27/2018, propranolol was initiated as a headache preventive. * Continue to monitor blood pressure and consider increasing propranolol if headaches persist verses restarting lisinopril if blood pressure becomes high. Tachycardia, 02/25/2018. Unclear etiology. Metoprolol was discontinued 2017 and tachycardia has developed since then. Continue to monitor. Urinary retention. Due to opiates plus hydralazine plus constipation? * Failed voiding trial 02/17/2018. 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 Zaragoza catheter replaced. * Repeat voiding trial 03/02 - 03/03/2018. If unsuccessful, follow up with Urology after discharge. Urinary tract infection. Has been treated with ciprofloxacin for 7 days, completed 02/18/2018. * Being treated again due to symptoms of nausea and malaise, with nitrofurantoin. [place] better after 1 day of antibiotics on 03/01/2018, but recurrent symptoms on 03/02/2018. 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 Await sensitivities. * Continue cranberry supplement. Hyponatremia and hypokalemia. Normal BMP 02/17/2018. * With no need for frequent blood draws or IV electrolyte replacement, discontinued PICC line, 02/17/2018. Anemia. Improving on CBC, 02/17/2018 Seizure, early onset on the day of her injury. Continuing levetiracetam per Neurosurgery. Prophylaxis. Anticoagulation has been contraindicated in the setting of recent intracranial hemorrhages. Ambulation is improving and she has much lower risk of DVT than she did initially. Followup. She has followup recommended on discharge with neurosurgeon, Dr. Bryant, in 1-2 weeks or after 02/23 or 03/02/2018. DISPOSITION: Has good support from and other local family members. Continue discharge goal of 03/13/2018. 03/02/18 09:38 Subjective: Complains of lower abdominal discomfort. Bowels are moving. No fevers or chills. Reduced appetite. Objective: Vital Signs Temp Pulse Resp BP Pulse Ox 36.8 C 88 16 127/73 H 98 03/02/18 06:22 03/02/18 06:22 03/02/18 06:22 03/02/18 06:29 03/02/18 06:22 Laboratory Results 03/01/18 07:52 03/01/18 07:52 03/01/18 03/02/18 03/03/18 05:59 05:59 05:59 Intake Total 900 400 240 Output Total 2300 2049 Balance -1400 -1650 240 Physical Exam - Physical Exam General Appearance: WD/WN, alert, no apparent distress Respiratory: No respiratory distress, No accessory muscle use Cardiac/Chest: No edema Abdomen: normal bowel sounds, non-tender, soft, No distended, No mass Skin: normal color, warm/dry Neuro/Psych: alert, normal mood/affect ICD10 Worksheet Patient Problems: Problems Problem Status Onset Fracture of occipital bone of skull with loss of consciousness Acute Grand mal seizure Acute Subdural hematoma Acute Syncope Acute Traumatic subarachnoid hemorrhage Acute
[2018-03-02] MEDS: BIOTENE DRY MOUTH ORAL RINSE 237 ML BTL MM PRN (12:31)
[2018-03-02] MEDS: BISACODYL 10 MG SUPP PR PRN (15:40)
[2018-03-02] MEDS ORDERED: FLUCONAZOLE 150 MG TAB PO ONE (17:17)
[2018-03-02] MEDS ORDERED: levETIRAcetam 500 MG TAB PO SCH (21:00)
[2018-03-02] MEDS: MELATONIN 3 MG TAB PO SCH (21:04)
[2018-03-02] MEDS: levETIRAcetam 250 MG TAB PO SCH (21:04)
[2018-03-03] MEDS: ACETAMINOPHEN 500 MG TAB PO SCH ×3 (05:57→21:04)
[2018-03-03] MEDS: AMANTADINE HCL 100 MG/10 ML UDCUP PO SCH ×2 (05:57→12:44)
[2018-03-03] MEDS: CHOLECALCIFEROL VIT D3 2,000 UNITS TAB/CAP PO SCH (08:49)
[2018-03-03] MEDS: levETIRAcetam 250 MG TAB PO SCH ×2 (08:50→21:04)
[2018-03-03] MEDS: CRANACTIN PO SCH ×2 (08:50→21:03)
[2018-03-03] MEDS: D MANNOSE PO SCH ×2 (08:50→21:03)
[2018-03-03] MEDS: PROPRANOLOL HCL 10 MG TAB PO SCH ×3 (08:51→21:04)
[2018-03-03] MEDS: NITROFURANTOIN MACROBID 100 MG CAP PO SCH ×2 (08:51→21:04)
[2018-03-03] MEDS: ONDANSETRON DISINTEGRATING 4 MG TAB PO PRN (15:08)
[2018-03-03] MEDS ORDERED: BETHANECHOL 10 MG TAB PO SCH (16:00)
--- NOTE | 2018-03-03 16:20 | SOAPPROG ---
SOAP Progress Note Assessment/Plan: Assessment: 72-year-old woman status post fall from planter bed onto her driveway, approximately 6-8 feet, on 02/02/2018, with subdural and intracranial hemorrhages , and status post occipital craniotomy 02/04/2018. Fell in the ICU on 02/11/2018 and suffered a scalp laceration with suturing. No subsequent change in head CT. Debility status post fall and intracranial hemorrhages. * Initial functional independence measure 35 on 02/20/2018, increased to 61 as of 02/27/2018. Standby assist to contact guard assist for mobility. Ambulating 150 -200 feet with a front wheeled walker. Was outside 02/26/2018. Needs contact guard assist for guidance. Often keeps eyes closed. Not able to follow instructions to test Esquivel balance inventory. Upper body dressing requires standby assist, lower body varies, minimal to moderate assist. Minimal assist for toilet transfer and for clothing management while toileting, minimal assist for shower transfer and for bathing. Impaired depth perception. * Head CT 02/18/2018 ruled out worsening bleed. Study showed improvement in hemorrhages but continuing left frontal edema and midline shift 5 mm left to right. Function has improved since titration of amitriptyline and addition of amantadine with improved alertness and improvement in headache pain. * PT and OT to optimize mobility and ADLs toward the supervision level though she may continue to require assistance for bathing and dressing. 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 * Needing cues for attention, initiation and persistence. Able to do picture recognition and can read on analog clock. 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 Dysphagia, advanced to DD 3 diet on 02/27/2018. * Impaired attention, initiation and persistence affect swallowing function. 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 Visual disturbance difficult to assess. Continue attempts per Occupational therapy. Fatigue. * Likely needs increased rest between periods of activity. Family provides stimulation, either by reading to her or by having conversations while in the room with her. * TSH and other lab studies were normal on 02/03/2018. Other labs regarding nausea were ordered on 03/01/2018. Will add on a repeat TSH. * Need for brain rest, avoiding overstimulation, and scheduling rest breaks, discussed with family on 02/27/2018. Hypertension. * Lisinopril was tapered from 20 mg to 5 mg q.day and metoprolol was discontinued because blood pressure was running low. Starting 02/27/2018, propranolol was initiated as a headache preventive. * Continue to monitor blood pressure and consider increasing propranolol if headaches persist verses restarting lisinopril if blood pressure becomes high. Tachycardia, 02/25/2018. Unclear etiology. Metoprolol was discontinued 2017 and tachycardia has developed since then. Continue to monitor. Urinary retention. Due to opiates plus hydralazine plus constipation? * Failed voiding trial 02/17/2018. 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 Zaragoza catheter replaced. * Repeat voiding trial 03/02 - 03/03/2018. Initiate bethanechol 10 mg four times daily on 03/03/2018. Urinary tract infection. Has been treated with ciprofloxacin for 7 days, completed 02/18/2018. * Being treated again due to symptoms of nausea and malaise, with nitrofurantoin. [place] better after 1 day of antibiotics on 03/01/2018, but recurrent symptoms on 03/02/2018. * Culture with Enterococcus faecalis,and garcia-sensitive Escherichia coli. Catheter has been removed. * Continue cranberry supplement. Hyponatremia and hypokalemia. Normal BMP 02/17/2018. * With no need for frequent blood draws or IV electrolyte replacement, discontinued PICC line, 02/17/2018. Anemia. Improving on CBC, 02/17/2018, and on CBC 03/01/2018. Seizure, early onset on the day of her injury. Continuing levetiracetam per Neurosurgery. Prophylaxis. Anticoagulation has been contraindicated in the setting of recent intracranial hemorrhages. Ambulation is improving and she has much lower risk of DVT than she did initially. Followup. Neurosurgeon Dr. Bryant, after discharge. DISPOSITION: Has good support from and other local family members. Continue discharge goal of 03/13/2018. 03/03/18 16:20 Subjective: Complains of fatigue. Says her headache is intermittent and thinks he can keep her up at night. Otherwise without complaints. Has had urinary retention since catheter was removed yesterday, and was catheterized with intermittent catheterization 2 times yesterday evening and once this morning. She subsequently has been able to void. Objective: Vital Signs Temp Pulse Resp BP Pulse Ox 36.6 C 78 16 109/80 94 03/03/18 06:27 03/03/18 08:51 03/03/18 06:27 03/03/18 08:51 03/03/18 06:27 Laboratory Results 03/01/18 07:52 03/01/18 07:52 03/02/18 03/03/18 03/04/18 05:59 05:59 05:59 Intake Total 400 940 840 Output Total 3733 1300 426 Balance -1650 -360 414 Physical Exam - Physical Exam General Appearance: WD/WN, alert, no apparent distress Respiratory: normal breath sounds, No crackles, No rhonchi, No wheezing Cardiac/Chest: regular rate, rhythm, No edema, No diastolic murmur, No systolic murmur Skin: normal color, warm/dry Neuro/Psych: alert, normal mood/affect, other (Ambulating in PT gym with physical therapist and contact guard assist but overall normal gait. Able to side step in both directions supporting herself with hands on PT mat at waist level.) ICD10 Worksheet Patient Problems: Problems Problem Status Onset Fracture of occipital bone of skull with loss of consciousness Acute Grand mal seizure Acute Subdural hematoma Acute Syncope Acute Traumatic subarachnoid hemorrhage Acute
[2018-03-03] MEDS: BIOTENE DRY MOUTH ORAL RINSE 237 ML BTL MM PRN (16:32)
[2018-03-03] MEDS ORDERED: NON-FORMULARY NEW DRUG PO SCH (21:00)
[2018-03-03] MEDS: BETHANECHOL 10 MG TAB PO SCH (21:03)
[2018-03-03] MEDS: MELATONIN 3 MG TAB PO SCH (21:04)
[2018-03-03] MEDS: [UNRECOGNIZED DRUG - OTHER] PO SCH (21:20)
[2018-03-04] MEDS: ACETAMINOPHEN 500 MG TAB PO SCH (05:42)
[2018-03-04] MEDS: AMANTADINE HCL 100 MG/10 ML UDCUP PO SCH ×2 (05:42→11:34)
[2018-03-04] MEDS: [UNRECOGNIZED DRUG - OTHER] PO SCH ×4 (05:44→21:06)
[2018-03-04] MEDS: BETHANECHOL 10 MG TAB PO SCH ×4 (05:44→21:03)
[2018-03-04] MEDS: CRANACTIN PO SCH ×2 (08:51→21:06)
[2018-03-04] MEDS: D MANNOSE PO SCH ×2 (08:51→21:06)
[2018-03-04] MEDS: levETIRAcetam 250 MG TAB PO SCH ×2 (08:52→21:03)
[2018-03-04] MEDS: CHOLECALCIFEROL VIT D3 2,000 UNITS TAB/CAP PO SCH (08:52)
[2018-03-04] MEDS: PROPRANOLOL HCL 10 MG TAB PO SCH ×3 (08:52→21:44)
[2018-03-04] MEDS: NITROFURANTOIN MACROBID 100 MG CAP PO SCH ×2 (08:53→21:04)
[2018-03-04] MEDS ORDERED: ACETAMINOPHEN 325 MG TAB PO PRN (09:49)
--- NOTE | 2018-03-04 10:28 | SOAPPROG ---
SOAP Progress Note Assessment/Plan: Assessment: 72-year-old woman status post fall from planter bed onto her driveway, approximately 6-8 feet, on 02/02/2018, with subdural and intracranial hemorrhages , and status post occipital craniotomy 02/04/2018. Fell in the ICU on 02/11/2018 and suffered a scalp laceration with suturing. No subsequent change in head CT. Debility status post fall and intracranial hemorrhages. * Initial functional independence measure 35 on 02/20/2018, increased to 61 as of 02/27/2018. Standby assist to contact guard assist for mobility. Ambulating 150 -200 feet with a front wheeled walker. Was outside 02/26/2018. Needs contact guard assist for guidance. Often keeps eyes closed. Not able to follow instructions to test Esquivel balance inventory. Upper body dressing requires standby assist, lower body varies, minimal to moderate assist. Minimal assist for toilet transfer and for clothing management while toileting, minimal assist for shower transfer and for bathing. Impaired depth perception. * Head CT 02/18/2018 ruled out worsening bleed. Study showed improvement in hemorrhages but continuing left frontal edema and midline shift 5 mm left to right. Function has improved since titration of amitriptyline and addition of amantadine with improved alertness and improvement in headache pain. * PT and OT to optimize mobility and ADLs toward the supervision level though she may continue to require assistance for bathing and dressing. 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 * Needing cues for attention, initiation and persistence. Able to do picture recognition and can read on analog clock. * Continue LITHOPONE CHARGER. Dysphagia, advanced to DD 3 diet on 02/27/2018. * Impaired attention, initiation and persistence affect swallowing function. * Continue LITHOPONE CHARGER. Visual disturbance difficult to assess. Continue attempts per Occupational therapy. Fatigue. * Likely needs increased rest between periods of activity. Family provides stimulation, either by reading to her or by having conversations while in the room with her. * TSH and other lab studies were normal on 02/03/2018. Other labs regarding nausea were ordered on 03/01/2018. Repeat TSH normal, . * Need for brain rest, avoiding overstimulation, and scheduling rest breaks, discussed with family on 02/27/2018. Hypertension. * Lisinopril was tapered from 20 mg to 5 mg q.day and metoprolol was discontinued because blood pressure was running low. Starting 02/27/2018, propranolol was initiated as a headache preventive. * Continue to monitor blood pressure and consider increasing propranolol if headaches persist verses restarting lisinopril if blood pressure becomes high. Tachycardia, 02/25/2018. Unclear etiology. Metoprolol was discontinued 2017 and tachycardia has developed since then. Continue to monitor. Urinary retention. 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 * Failed voiding trial 02/17/2018. Zaragoza catheter replaced. * Repeat voiding trial 03/02 - 03/03/2018. Initiated bethanechol 10 mg four times daily on 03/03/2018, titrated to 20 mg 4 times a day. Initiate tamsulosin 0.4 mg q.day starting 03/04/2018. * If urinary retention persists, consider teaching her to self-catheterize verses placing Zaragoza. Urology evaluation after discharge if problem persists. Urinary tract infection. Has been treated with ciprofloxacin for 7 days, completed 02/18/2018. * Being treated again due to symptoms of nausea and malaise, with nitrofurantoin. [place] better after 1 day of antibiotics on 03/01/2018, but recurrent symptoms on 03/02/2018. Continue 7 days total, through 03/07/2018. * Culture with Enterococcus faecalis,and garcia-sensitive Escherichia coli. Catheter has been removed. * Continue cranberry supplement. Hyponatremia and hypokalemia. Normal BMP 02/17/2018. * With no need for frequent blood draws or IV electrolyte replacement, discontinued PICC line, 02/17/2018. Anemia. Improving on CBC, 02/17/2018, and on CBC 03/01/2018. Seizure, early onset on the day of her injury. Continuing levetiracetam per Neurosurgery. Prophylaxis. Anticoagulation has been contraindicated in the setting of recent intracranial hemorrhages. Ambulation is improving and she has much lower risk of DVT than she did initially. Followup. Neurosurgeon Dr. Bryant, after discharge. DISPOSITION: Has good support from and other local family members. Continue discharge goal of 03/13/2018. 03/04/18 09:57 Subjective: No complaints, other than reporting that she was awaken several times overnight for bladder scans. She has not been able to void has been catheterized several times. She reports she does not feel the urge to urinate. She does not have a headache today. Objective: Vital Signs Temp Pulse Resp BP Pulse Ox 36.6 C 75 16 127/81 H 91 L 03/04/18 05:56 03/04/18 05:56 03/04/18 05:56 03/04/18 05:56 03/04/18 05:56 Microbiology 02/28/18 15:00 Urine Culture - Final Urine,Catheterized Escherichia Coli#2 Enterococcus Faecalis Escherichia Coli Laboratory Results 03/01/18 07:52 03/01/18 07:52 03/03/18 03/04/18 03/05/18 05:59 05:59 05:59 Intake Total 940 1390 Output Total 1300 2276 Balance -360 -886 Physical Exam - Physical Exam General Appearance: WD/WN, alert, no apparent distress Respiratory: No respiratory distress, No accessory muscle use Skin: normal color, warm/dry Neuro/Psych: alert, normal mood/affect, oriented x 3 ICD10 Worksheet Patient Problems: Problems Problem Status Onset Fracture of occipital bone of skull with loss of consciousness Acute Grand mal seizure Acute Subdural hematoma Acute Syncope Acute Traumatic subarachnoid hemorrhage Acute
[2018-03-04] MEDS: TAMSULOSIN HCL 0.4 MG CAP PO SCH (11:34)
[2018-03-04] MEDS: MELATONIN 3 MG TAB PO SCH (21:04)
[2018-03-05] MEDS: AMANTADINE HCL 100 MG/10 ML UDCUP PO SCH ×2 (06:22→13:36)
[2018-03-05] MEDS: [UNRECOGNIZED DRUG - OTHER] PO SCH ×4 (06:22→20:53)
[2018-03-05] MEDS: BETHANECHOL 10 MG TAB PO SCH ×2 (06:22→13:38)
[2018-03-05] MEDS: ONDANSETRON DISINTEGRATING 4 MG TAB PO PRN (08:07)
[2018-03-05] MEDS: levETIRAcetam 250 MG TAB PO SCH ×2 (09:50→20:52)
[2018-03-05] MEDS: CRANACTIN PO SCH ×2 (09:53→20:53)
[2018-03-05] MEDS: D MANNOSE PO SCH ×2 (09:53→20:53)
[2018-03-05] MEDS: PROPRANOLOL HCL 10 MG TAB PO SCH ×3 (09:56→20:56)
[2018-03-05] MEDS: TAMSULOSIN HCL 0.4 MG CAP PO SCH (09:57)
[2018-03-05] MEDS: CHOLECALCIFEROL VIT D3 2,000 UNITS TAB/CAP PO SCH (09:58)
[2018-03-05] MEDS: NITROFURANTOIN MACROBID 100 MG CAP PO SCH (09:59)
--- NOTE | 2018-03-05 12:34 | SOAPPROG ---
SOAP Progress Note Assessment/Plan: Assessment: 72-year-old woman status post fall from planter bed onto her driveway, approximately 6-8 feet, on 02/02/2018, with subdural and intracranial hemorrhages , and status post occipital craniotomy 02/04/2018. Fell in the ICU on 02/11/2018 and suffered a scalp laceration with suturing. No subsequent change in head CT. Debility status post fall and intracranial hemorrhages. * Initial functional independence measure 35 on 02/20/2018, increased to 61 as of 02/27/2018. Standby assist to contact guard assist for mobility. Ambulating 150 -200 feet with a front wheeled walker. Was outside 02/26/2018. Needs contact guard assist for guidance. Often keeps eyes closed. Not able to follow instructions to test Esquivel balance inventory. Upper body dressing requires standby assist, lower body varies, minimal to moderate assist. Minimal assist for toilet transfer and for clothing management while toileting, minimal assist for shower transfer and for bathing. Impaired depth perception. * Head CT 02/18/2018 ruled out worsening bleed. Study showed improvement in hemorrhages but continuing left frontal edema and midline shift 5 mm left to right. Function has improved since titration of amitriptyline and addition of amantadine with improved alertness and improvement in headache pain. * PT and OT to optimize mobility and ADLs toward the supervision level though she may continue to require assistance for bathing and dressing. 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 * Needing cues for attention, initiation and persistence. Able to do picture recognition and can read on analog clock. 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 Dysphagia, advanced to DD 3 diet on 02/27/2018. * Impaired attention, initiation and persistence affect swallowing function. 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 Visual disturbance difficult to assess. Continue attempts per Occupational therapy. Nausea and malaise. * Repeat CBC and UA today 03/05/2018 with slightly low white blood cell count and normal UA.. * Discontinue nitrofurantoin. Discontinue bethanechol and tamsulosin. Observe for improvement in symptoms. Urinary retention. 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 * Failed voiding trial 02/17/2018. Zaragoza catheter replaced. * Repeat voiding trial 03/02 - 03/05/2018 unsuccessful. Discontinue bethanechol and tamsulosin 03/05/2018. * Urology evaluation after discharge if problem persists. Urinary tract infection. Has been treated with ciprofloxacin for 7 days, completed 02/18/2018. * Being treated again due to symptoms of nausea and malaise, with nitrofurantoin. [place] better after 1 day of antibiotics on 03/01/2018, but recurrent symptoms on 03/02/2018. * Culture with Enterococcus faecalis,and garcia-sensitive Escherichia coli. Catheter has been removed. * Normal UA 03/05/2018. Discontinue nitrofurantoin. * Continue cranberry supplement. Consider prophylactic antibiotic. Observe for symptoms with discontinuation of medications. Fatigue. * Likely needs increased rest between periods of activity. Family provides stimulation, either by reading to her or by having conversations while in the room with her. * TSH and other lab studies were normal on 02/03/2018. Other labs regarding nausea were ordered on 03/01/2018. Repeat TSH normal, . * Need for brain rest, avoiding overstimulation, and scheduling rest breaks, discussed with family on 02/27/2018. Hypertension. * Lisinopril was tapered from 20 mg to 5 mg q.day and metoprolol was discontinued because blood pressure was running low. Starting 02/27/2018, propranolol was initiated as a headache preventive. * Continue to monitor blood pressure and consider increasing propranolol if headaches persist verses restarting lisinopril if blood pressure becomes high. Tachycardia, 02/25/2018. Unclear etiology. Metoprolol was discontinued 2017 and tachycardia has developed since then. Continue to monitor. Hyponatremia and hypokalemia. Normal BMP 02/17/2018. * With no need for frequent blood draws or IV electrolyte replacement, discontinued PICC line, 02/17/2018. Anemia. Improving on CBC, 02/17/2018, and on CBC 03/01/2018. Seizure, early onset on the day of her injury. Continuing levetiracetam per Neurosurgery. Prophylaxis. Anticoagulation has been contraindicated in the setting of recent intracranial hemorrhages. Ambulation is improving and she has much lower risk of DVT than she did initially. Followup. Neurosurgeon Dr. Bryant, after discharge. DISPOSITION: Has good support from and other local family members. Continue discharge goal of 03/13/2018. 03/05/18 13:49 Subjective: Had nausea yesterday and this morning. No constipation or diarrhea. Reduced appetite. No fevers or chills today; felt chilled yesterday but had no fever. No cough or dyspnea. No skin irritation. No rhinorrhea or head congestion. Objective: Vital Signs Temp Pulse Resp BP Pulse Ox 36.2 C 77 16 129/72 H 95 03/05/18 06:27 03/05/18 09:30 03/05/18 06:27 03/05/18 09:30 03/05/18 09:30 Laboratory Results 03/01/18 07:52 03/01/18 07:52 03/04/18 03/05/18 03/06/18 05:59 05:59 05:59 Intake Total 1390 400 500 Output Total 7704 1675 0 Balance -886 -1649 500 Physical Exam - Physical Exam General Appearance: WD/WN, alert, no apparent distress Respiratory: normal breath sounds, No crackles, No rhonchi, No wheezing Cardiac/Chest: regular rate, rhythm, edema (Trace bilateral pretibial), No diastolic murmur, No systolic murmur Abdomen: normal bowel sounds, non-tender, soft, No distended Skin: normal color, warm/dry Neuro/Psych: alert, normal mood/affect, oriented x 3 ICD10 Worksheet Patient Problems: Problems Problem Status Onset Fracture of occipital bone of skull with loss of consciousness Acute Grand mal seizure Acute Subdural hematoma Acute Syncope Acute Traumatic subarachnoid hemorrhage Acute
[2018-03-05 13:34] LABS: PLATELET COUNT 247 10^3/uL (150-400)
[2018-03-06] MEDS: [UNRECOGNIZED DRUG - OTHER] PO SCH ×4 (05:57→20:05)
[2018-03-06] MEDS: AMANTADINE HCL 100 MG/10 ML UDCUP PO SCH (05:57)
[2018-03-06] MEDS: levETIRAcetam 250 MG TAB PO SCH ×2 (08:37→20:05)
[2018-03-06] MEDS: PROPRANOLOL HCL 10 MG TAB PO SCH (08:39)
[2018-03-06] MEDS: CHOLECALCIFEROL VIT D3 2,000 UNITS TAB/CAP PO SCH (08:40)
[2018-03-06] MEDS: CRANACTIN PO SCH ×2 (08:41→20:05)
[2018-03-06] MEDS: D MANNOSE PO SCH ×2 (08:41→20:05)
--- NOTE | 2018-03-06 09:25 | SOAPPROG ---
SOAP Progress Note Assessment/Plan: Assessment: 72-year-old woman status post fall from planter bed onto her driveway, approximately 6-8 feet, on 02/02/2018, with subdural and intracranial hemorrhages , and status post occipital craniotomy 02/04/2018. Fell in the ICU on 02/11/2018 and suffered a scalp laceration with suturing. No subsequent change in head CT. Debility status post fall and intracranial hemorrhages. * Initial functional independence measure 35 on 02/20/2018, increased to 61 as of 02/27/2018; 63 as of 03/06/2018. Standby assist for mobility when she is more alert, contact guard assist if she is fatigued. Has ambulated greater than 150 ft with a front wheeled walker. Has climbed and descended 6 stairs with 2 rails. She needs minimal assist for descent. She has stood briefly to accomplished grooming and hygiene. Upper body dressing requires standby assist , lower body requires contact guard assist toileting and showering require standby assist to contact guard assist. * Therapies and nursing to work with to educated regarding care needs, and to allow patient to have more independence. She is beginning to ask for assistance more. * Head CT 02/18/2018 ruled out worsening bleed. Study showed improvement in hemorrhages but continuing left frontal edema and midline shift 5 mm left to right. Function has improved since titration of amitriptyline and addition of amantadine with improved alertness and improvement in headache pain. * PT and OT to optimize mobility and ADLs toward the supervision level though she may continue to require assistance for bathing and dressing. 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 * Needing cues for attention, initiation and persistence. Able to do picture recognition and can read on analog clock. 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 Dysphagia, advanced to DD3 diet on 02/27/2018. * Impaired attention, initiation and persistence affect swallowing function. 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 Visual disturbance. * Diplopia with down gaze. OT using taping of glasses for left lower quadrant. Complicates mobility especially descending stairs. Nausea and malaise. * Repeat CBC and UA today 03/05/2018 with slightly low white blood cell count and normal UA.. * Medication changes 03/05/2018: discontinued nitrofurantoin, bethanechol and tamsulosin. Improving. Urinary retention. 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 * Failed voiding trial 02/17/2018. Zaragoza catheter replaced. * Repeat voiding trial 03/02 - 03/05/2018 unsuccessful. Discontinue bethanechol and tamsulosin 03/05/2018. Replace Zaragoza catheter 03/06/2018. * Urology evaluation after discharge if problem persists. Urinary tract infection. Has been treated with ciprofloxacin for 7 days, completed 02/18/2018. Repeat UA & Cx 02/28/18 due to nausea and malaise. * Culture with Enterococcus faecalis,and garcia-sensitive Escherichia coli. Catheter has been removed. Treated with nitrofurantoin 616 to 03/05/2018. * Normal UA 03/05/2018. Discontinued nitrofurantoin. * Continue cranberry supplement. Consider prophylactic antibiotic. Observe for symptoms with discontinuation of medications. Fatigue. * Likely needs increased rest between periods of activity. Family provides stimulation, either by reading to her or by having conversations while in the room with her. * TSH and other lab studies were normal on 02/03/2018. Other labs regarding nausea were ordered on 03/01/2018. Repeat TSH normal, . * Need for brain rest, avoiding overstimulation, and scheduling rest breaks, discussed with family on 02/27/2018. * Change from amantadine to methylphenidate 5 mg twice daily before breakfast and lunch, starting 03/06/2018. Hypertension. * Lisinopril was tapered from 20 mg to 5 mg q.day and metoprolol was discontinued because blood pressure was running low. Starting 02/27/2018, propranolol was initiated as a headache preventive. * Propranolol may be contributing to fatigue. Headaches have resolved. Discontinue propranolol. Restart lisinopril at 5 mg q.day. Tachycardia, 02/25/2018. Unclear etiology. Metoprolol was discontinued 2017 and tachycardia has developed since then. Continue to monitor. Hyponatremia and hypokalemia. Normal BMP 02/17/2018. * With no need for frequent blood draws or IV electrolyte replacement, discontinued PICC line, 02/17/2018. Anemia. Improving on CBC, 02/17/2018, and on CBC 03/01/2018. Seizure, early onset on the day of her injury. Continuing levetiracetam per Neurosurgery. Prophylaxis. Anticoagulation has been contraindicated in the setting of recent intracranial hemorrhages. Ambulation is improving and she has much lower risk of DVT than she did initially. Followup. Neurosurgeon Dr. Bryant, after discharge. DISPOSITION: Attended staffing, 15 min. Discussed with nursing, case management, PT, OT, FRUIT AND VEGETABLE CLASSER. Has good support from and other local family members. Continue discharge goal of 03/13/2018. Will have home PT OT and FRUIT AND VEGETABLE CLASSER. 03/06/18 11:04 Subjective: Stomach feels better. No nausea or abdominal pain. Had poorer sleep last night , not sure why. Feels fatigued today. Otherwise without complaints. Objective: Vital Signs Temp Pulse Resp BP Pulse Ox 36.7 C 86 16 117/78 94 03/06/18 06:12 03/06/18 08:39 03/06/18 06:12 03/06/18 08:39 03/06/18 06:12 Laboratory Results 03/05/18 11:58 03/01/18 07:52 03/05/18 03/06/18 03/07/18 05:59 05:59 05:59 Intake Total 400 1150 237 Output Total 1675 2100 Balance -0022 -673 237 - Time Spent With Patient Time Spent With Patient: Greater than 35 min floor time today, including more than 50% of time in coordination of care during staffing meeting, and counseling patient and . Physical Exam - Physical Exam General Appearance: WD/WN, alert, no apparent distress Respiratory: normal breath sounds, No crackles, No rhonchi, No wheezing Cardiac/Chest: regular rate, rhythm, No diastolic murmur, No systolic murmur Skin: normal color, warm/dry Neuro/Psych: alert, normal mood/affect, oriented x 3 ICD10 Worksheet Patient Problems: Problems Problem Status Onset Fracture of occipital bone of skull with loss of consciousness Acute Grand mal seizure Acute Subdural hematoma Acute Syncope Acute Traumatic subarachnoid hemorrhage Acute
[2018-03-06] MEDS: POLYETHYLENE GLYCOL 3350 17 GM PKT PO PRN (11:01)
[2018-03-06] MEDS: ONDANSETRON DISINTEGRATING 4 MG TAB PO PRN (18:03)
[2018-03-07] MEDS: [UNRECOGNIZED DRUG - OTHER] PO SCH (05:55)
[2018-03-07] MEDS: LISINOPRIL 5 MG TAB PO SCH (08:15)
[2018-03-07] MEDS: CHOLECALCIFEROL VIT D3 2,000 UNITS TAB/CAP PO SCH (08:15)
[2018-03-07] MEDS: levETIRAcetam 250 MG TAB PO SCH (08:15)
[2018-03-07] MEDS: CRANACTIN PO SCH (08:18)
[2018-03-07] MEDS: D MANNOSE PO SCH (08:18)
--- NOTE | 2018-03-07 09:56 | SOAPPROG ---
SOAP Progress Note Assessment/Plan: Assessment/Plan: 72-year-old woman status post fall from planter bed onto her driveway, approximately 6-8 feet, on 02/02/2018, with subdural and intracranial hemorrhages , and status post occipital craniotomy 02/04/2018. Fell in the ICU on 02/11/2018 and suffered a scalp laceration with suturing. No subsequent change in head CT. Debility status post fall and intracranial hemorrhages. * Initial functional independence measure 35 on 02/20/2018, increased to 61 as of 02/27/2018; 63 as of 03/06/2018. Standby assist for mobility when she is more alert, contact guard assist if she is fatigued. Has ambulated greater than 150 ft with a front wheeled walker. Has climbed and descended 6 stairs with 2 rails. She needs minimal assist for descent. She has stood briefly to accomplished grooming and hygiene. Upper body dressing requires standby assist , lower body requires contact guard assist toileting and showering require standby assist to contact guard assist. * Therapies and nursing to work with to educated regarding care needs, and to allow patient to have more independence. She is beginning to ask for assistance more. * Head CT 02/18/2018 ruled out worsening bleed. Study showed improvement in hemorrhages but continuing left frontal edema and midline shift 5 mm left to right. Function has improved since titration of amitriptyline and addition of amantadine with improved alertness and improvement in headache pain. * PT and OT to optimize mobility and ADLs toward the supervision level though she may continue to require assistance for bathing and dressing. 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 * Needing cues for attention, initiation and persistence. Able to do picture recognition and can read on analog clock. * Continue CHEESEMAKER HELPER. Dysphagia, advanced to DD3 diet on 02/27/2018. * Impaired attention, initiation and persistence affect swallowing function. * Continue CHEESEMAKER HELPER. Visual disturbance. * Diplopia with down gaze. OT using taping of glasses for left lower quadrant. Complicates mobility especially descending stairs. Nausea and malaise. * Repeat CBC and UA today 03/05/2018 with slightly low white blood cell count and normal UA.. * Medication changes 03/05/2018: discontinued nitrofurantoin, bethanechol and tamsulosin. Improving. Urinary retention. 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 * Failed voiding trial 02/17/2018. Zaragoza catheter replaced. * Repeat voiding trial 03/02 - 03/05/2018 unsuccessful. Discontinue bethanechol and tamsulosin 03/05/2018. Replace Zaragoza catheter 03/06/2018. * Urology evaluation after discharge if problem persists. Urinary tract infection. Has been treated with ciprofloxacin for 7 days, completed 02/18/2018. Repeat UA & Cx 02/28/18 due to nausea and malaise. * Culture with Enterococcus faecalis,and garcia-sensitive Escherichia coli. Catheter has been removed. Treated with nitrofurantoin 616 to 03/05/2018. * Normal UA 03/05/2018. Discontinued nitrofurantoin. * Continue cranberry supplement. Consider prophylactic antibiotic. Observe for symptoms with discontinuation of medications. Fatigue. * Likely needs increased rest between periods of activity. Family provides stimulation, either by reading to her or by having conversations while in the room with her. * TSH and other lab studies were normal on 02/03/2018. Other labs regarding nausea were ordered on 03/01/2018. Repeat TSH normal, 03/03/2018. * Need for brain rest, avoiding overstimulation, and scheduling rest breaks, discussed with family on 02/27/2018. * Change from amantadine to methylphenidate 5 mg twice daily before breakfast and lunch, starting 03/06/2018. Hypertension. * Lisinopril was tapered from 20 mg to 5 mg q.day and metoprolol was discontinued because blood pressure was running low. Starting 02/27/2018, propranolol was initiated as a headache preventive. * Propranolol may be contributing to fatigue. Headaches have resolved. Discontinue propranolol. Restart lisinopril at 5 mg q.day. Tachycardia, 02/25/2018. Unclear etiology. Metoprolol was discontinued 2017 and tachycardia has developed since then. Continue to monitor. Hyponatremia and hypokalemia. Normal BMP 02/17/2018. * With no need for frequent blood draws or IV electrolyte replacement, discontinued PICC line, 02/17/2018. Anemia. Improving on CBC, 02/17/2018, and on CBC 03/01/2018. Seizure, early onset on the day of her injury. Continuing levetiracetam per Neurosurgery. Prophylaxis. Anticoagulation has been contraindicated in the setting of recent intracranial hemorrhages. Ambulation is improving and she has much lower risk of DVT than she did initially. Followup. Neurosurgeon Dr. Bryant, after discharge. DISPOSITION: Has good support from and other local family members. Continue discharge goal of 03/13/2018. Will have home PT OT and CHEESEMAKER HELPER. Pt still reporting decreased appetite and overall feeling tired - Was just given her methylphenidate and we will see how this is affecting her. Will also add a little ranitidine - support her stomach after recent abx treatment that seemed to contribute to the nausea and appetite changes. Discussed with RN to provide PRN's to support a bowel movement - hasn't had any movement in 3 days which could also be contributing to not feeling great. Per review of chart and discussion with RN - not appearing worse from a neurologic standpoint - will monitor closely 03/07/18 09:59 Subjective: Feeling OK today - thinks that the nausea is a little better - just feels tired and that always wants to be laying down. Per - her appetite is not great and she has lost around 17lbs since the accident. no emesis but does have some "upset" stomach feelings. also reporting that her pain/[place] seem to be improved. Objective: Vital Signs Temp Pulse Resp BP Pulse Ox 97.4 F 80 14 123/75 H 95 03/07/18 05:52 03/07/18 05:52 03/07/18 05:52 03/07/18 05:52 03/07/18 05:52 Laboratory Results 03/05/18 11:58 03/01/18 07:52 03/06/18 03/07/18 03/08/18 05:59 05:59 05:59 Intake Total 1150 537 200 Output Total 2100 1915 Balance -950 -1378 200 Physical Exam - Physical Exam General Appearance: alert, other (appears tired - somewhat distractible. Not toxic/ill appearing on exam today) EENT: other (mmm, Pupils appeared equal. ) Respiratory: lungs clear, normal breath sounds Cardiac/Chest: regular rate, rhythm Abdomen: non-tender, soft, other (slightly hypoactive BS) Skin: normal color Neuro/Psych: alert (responded well to basic questions but did occasionally need to confirm answers with her . ) ICD10 Worksheet Patient Problems: Problems Problem Status Onset Fracture of occipital bone of skull with loss of consciousness Acute Grand mal seizure Acute Subdural hematoma Acute Syncope Acute Traumatic subarachnoid hemorrhage Acute
[2018-03-07] MEDS: RANITIDINE HCL 150 MG/10 ML UDCUP PO SCH (12:22)
[2018-03-07] MEDS: BISACODYL 10 MG SUPP PR PRN (13:30)
[2018-03-07] MEDS: ONDANSETRON DISINTEGRATING 4 MG TAB PO PRN (16:33)
[2018-03-07] MEDS: POLYETHYLENE GLYCOL 3350 17 GM PKT PO PRN (17:22)
[2018-03-07] MEDS ORDERED: FAMOTIDINE 20 MG TAB PO ONE (18:15)
[2018-03-07] MEDS ORDERED: RANITIDINE HCL 150 MG/10 ML UDCUP PO ONE (18:15)
[2018-03-08] MEDS: levETIRAcetam 250 MG TAB PO SCH ×3 (00:30→20:24)
[2018-03-08] MEDS: D MANNOSE PO SCH ×3 (01:41→20:26)
[2018-03-08] MEDS: RANITIDINE HCL 150 MG/10 ML UDCUP PO SCH ×3 (01:41→20:24)
[2018-03-08] MEDS: CRANACTIN PO SCH ×3 (01:41→20:26)
[2018-03-08] MEDS: POLYETHYLENE GLYCOL 3350 17 GM PKT PO PRN (09:31)
[2018-03-08] MEDS: CHOLECALCIFEROL VIT D3 2,000 UNITS TAB/CAP PO SCH (09:31)
[2018-03-08] MEDS: LISINOPRIL 5 MG TAB PO SCH (09:31)
--- NOTE | 2018-03-08 11:51 | SOAPPROG ---
SOAP Progress Note Assessment/Plan: Assessment/Plan: 72-year-old woman status post fall from planter bed onto her driveway, approximately 6-8 feet, on 02/02/2018, with subdural and intracranial hemorrhages , and status post occipital craniotomy 02/04/2018. Fell in the ICU on 02/11/2018 and suffered a scalp laceration with suturing. No subsequent change in head CT. Debility status post fall and intracranial hemorrhages. * Initial functional independence measure 35 on 02/20/2018, increased to 61 as of 02/27/2018; 63 as of 03/06/2018. Standby assist for mobility when she is more alert, contact guard assist if she is fatigued. Has ambulated greater than 150 ft with a front wheeled walker. Has climbed and descended 6 stairs with 2 rails. She needs minimal assist for descent. She has stood briefly to accomplished grooming and hygiene. Upper body dressing requires standby assist , lower body requires contact guard assist toileting and showering require standby assist to contact guard assist. * Therapies and nursing to work with to educated regarding care needs, and to allow patient to have more independence. She is beginning to ask for assistance more. * Head CT 02/18/2018 ruled out worsening bleed. Study showed improvement in hemorrhages but continuing left frontal edema and midline shift 5 mm left to right. Function has improved since titration of amitriptyline and addition of amantadine with improved alertness and improvement in headache pain. * PT and OT to optimize mobility and ADLs toward the supervision level though she may continue to require assistance for bathing and dressing. 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 * Needing cues for attention, initiation and persistence. Able to do picture recognition and can read on analog clock. * Continue OPERATIONS STAFF SPECIALIST SECURITY. Dysphagia, advanced to DD3 diet on 02/27/2018. * Impaired attention, initiation and persistence affect swallowing function. * Continue OPERATIONS STAFF SPECIALIST SECURITY. Visual disturbance. * Diplopia with down gaze. OT using taping of glasses for left lower quadrant. Complicates mobility especially descending stairs. Nausea and malaise. * Repeat CBC and UA today 03/05/2018 with slightly low white blood cell count and normal UA.. * Medication changes 03/05/2018: discontinued nitrofurantoin, bethanechol and tamsulosin. Improving. Urinary retention. 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 * Failed voiding trial 02/17/2018. Zaragoza catheter replaced. * Repeat voiding trial 03/02 - 03/05/2018 unsuccessful. Discontinue bethanechol and tamsulosin 03/05/2018. Replace Zaragoza catheter 03/06/2018. * Urology evaluation after discharge if problem persists. Urinary tract infection. Has been treated with ciprofloxacin for 7 days, completed 02/18/2018. Repeat UA & Cx 02/28/18 due to nausea and malaise. * Culture with Enterococcus faecalis,and garcia-sensitive Escherichia coli. Catheter has been removed. Treated with nitrofurantoin 616 to 03/05/2018. * Normal UA 03/05/2018. Discontinued nitrofurantoin. * Continue cranberry supplement. Consider prophylactic antibiotic. Observe for symptoms with discontinuation of medications. Fatigue. * Likely needs increased rest between periods of activity. Family provides stimulation, either by reading to her or by having conversations while in the room with her. * TSH and other lab studies were normal on 02/03/2018. Other labs regarding nausea were ordered on 03/01/2018. Repeat TSH normal, 03/03/2018. * Need for brain rest, avoiding overstimulation, and scheduling rest breaks, discussed with family on 02/27/2018. * Change from amantadine to methylphenidate 5 mg twice daily before breakfast and lunch, starting 03/06/2018. Hypertension. * Lisinopril was tapered from 20 mg to 5 mg q.day and metoprolol was discontinued because blood pressure was running low. Starting 02/27/2018, propranolol was initiated as a headache preventive. * Propranolol may be contributing to fatigue. Headaches have resolved. Discontinue propranolol. Restart lisinopril at 5 mg q.day. Tachycardia, 02/25/2018. Unclear etiology. Metoprolol was discontinued 2017 and tachycardia has developed since then. Continue to monitor. Hyponatremia and hypokalemia. Normal BMP 02/17/2018. * With no need for frequent blood draws or IV electrolyte replacement, discontinued PICC line, 02/17/2018. Anemia. Improving on CBC, 02/17/2018, and on CBC 03/01/2018. Seizure, early onset on the day of her injury. Continuing levetiracetam per Neurosurgery. Prophylaxis. Anticoagulation has been contraindicated in the setting of recent intracranial hemorrhages. Ambulation is improving and she has much lower risk of DVT than she did initially. Followup. Neurosurgeon Dr. Bryant, after discharge. DISPOSITION: Has good support from and other local family members. Continue discharge goal of 03/13/2018. Will have home PT OT and OPERATIONS STAFF SPECIALIST SECURITY. Pt did spend short time in the ER last night for expedited workup since she was reporting feeling worse nausea/malaise. CT of head was negative and lab workup unrevealing. +UA and was given Levofloxacin. Will add PO Levofloxacin at night with dinner - Pt deferring some medications and agreeing - including the methylphenidate and the D-mannose. Have discussed that there are some meds that are non-negotiable. Will need to discuss further with about activating meds as this will help increase participation. Have asked PT if they can perform basic Vestibular testing to see if this is contributing to any discomfort. Potentially recent UTI and now with persistent UTI contributing to current fatigue/feeling "lousy" 03/08/18 11:45 Subjective: Feeling tired- wants to just be back in bed. Has good supportive friends that are around providing help today. not reporting any [place]. not feeling any fevers/ chills. Pt does say she has some dizziness - mostly when changing positions. Appetite is down but did enjoy the eggs and potatoes that her friends brought her in this morning. Objective: Vital Signs Temp Pulse Resp BP Pulse Ox 97.4 F 88 21 H 116/66 92 03/08/18 09:19 03/08/18 09:19 03/08/18 09:19 03/08/18 09:19 03/08/18 09:19 Laboratory Results 03/05/18 11:58 03/01/18 07:52 03/07/18 03/08/18 03/09/18 05:59 05:59 05:59 Intake Total 537 2145 450 Output Total 1915 1150 200 Balance -1378 995 250 Physical Exam - Physical Exam General Appearance: alert, other (no new facial droop or other changes. APpears to have good color - Non toxic appearing ) EENT: other (MMM) Neck: non-tender Respiratory: lungs clear, other (no apparent respiratory distress - around 14- 15 during my interview ) Cardiac/Chest: regular rate, rhythm Abdomen: normal bowel sounds, non-tender, soft Skin: normal color Neuro/Psych: alert, other (Somewhat perseverative about going back to bed. ) ICD10 Worksheet Patient Problems: Problems Problem Status Onset Fracture of occipital bone of skull with loss of consciousness Acute Grand mal seizure Acute Subdural hematoma Acute Syncope Acute Traumatic subarachnoid hemorrhage Acute
[2018-03-08] MEDS ORDERED: MECLIZINE HCL 12.5 MG TAB PO PRN (12:10)
[2018-03-08] MEDS: BISACODYL 10 MG SUPP PR PRN (16:18)
[2018-03-09] MEDS: RANITIDINE HCL 150 MG/10 ML UDCUP PO SCH ×2 (10:00→20:50)
[2018-03-09] MEDS: LISINOPRIL 5 MG TAB PO SCH (10:01)
[2018-03-09] MEDS: CHOLECALCIFEROL VIT D3 2,000 UNITS TAB/CAP PO SCH (10:01)
[2018-03-09] MEDS: CRANACTIN PO SCH ×3 (10:02→21:02)
[2018-03-09] MEDS: D MANNOSE PO SCH ×3 (10:02→21:02)
[2018-03-09] MEDS: levETIRAcetam 250 MG TAB PO SCH ×3 (10:06→20:49)
[2018-03-09] MEDS: levETIRAcetam 500 MG TAB PO SCH ×2 (10:06→20:49)
--- NOTE | 2018-03-09 10:52 | SOAPPROG ---
SOAP Progress Note Assessment/Plan: Assessment: 72-year-old woman status post fall from planter bed onto her driveway, approximately 6-8 feet, on 02/02/2018, with subdural and intracranial hemorrhages , and status post occipital craniotomy 02/04/2018. Fell in the ICU on 02/11/2018 and suffered a scalp laceration with suturing. No subsequent change in head CT. Debility status post fall and intracranial hemorrhages. * Initial functional independence measure 35 on 02/20/2018, increased to 61 as of 02/27/2018; 63 as of 03/06/2018. Standby assist for mobility when she is more alert, contact guard assist if she is fatigued. Has ambulated greater than 150 ft with a front wheeled walker. Has climbed and descended 6 stairs with 2 rails. She needs minimal assist for descent. She has stood briefly to accomplished grooming and hygiene. Upper body dressing requires standby assist , lower body requires contact guard assist. Toileting and showering require standby assist to contact guard assist. * Therapies and nursing to work with to educated regarding care needs, and to allow patient to have more independence. She is beginning to ask for assistance more. * PT and OT to optimize mobility and ADLs toward the supervision level though she may continue to require assistance for bathing and dressing. 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 * Needing cues for attention, initiation and persistence. Able to do picture recognition and can read on analog clock. * Continue NON LICENSED OPERATOR. Dysphagia, advanced to DD3 diet on 02/27/2018. * Impaired attention, initiation and persistence affect swallowing function. * Continue NON LICENSED OPERATOR. Visual disturbance. * Diplopia with down gaze. OT using taping of glasses for left lower quadrant. Complicates mobility especially descending stairs. Nausea and malaise, fatigue, chills * These are now chronic issues for her. She has had head CTs x2, on 02/18/2018 and 03/07/2018, stable or improving. * TSH normal x2, 02/03/2018 and 03/03/2018. Methylphenidate may have caused perseveration. Amantadine was discontinued along with other medications in an attempt to relieve nausea. * Repeat CBC and UA today 03/05/2018 with slightly low white blood cell count and normal UA.. Laboratory studies again on 03/07/2016 with anemia resolved, normal white blood cells, normal renal function and electrolytes. Urinalysis with positive nitrite and leukocyte esterase and mildly increased white blood cells on micro but without specific symptoms and with no leukocytosis on CBC this is much more likely colonization than an infection. * Medication changes 03/05/2018: discontinued nitrofurantoin, bethanechol and tamsulosin. Improving. * Trial of modafinil for fatigue, beginning 03/10/2018. Urinary retention. 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 * Failed voiding trial 02/17/2018. Zaragoza catheter replaced. * Repeat voiding trial 03/02 - 03/05/2018 unsuccessful. Discontinue bethanechol and tamsulosin 03/05/2018. Replace Zaragoza catheter 03/06/2018. * Urology evaluation after discharge if problem persists. Urinary tract infection. Has been treated with ciprofloxacin for 7 days, completed 02/18/2018. Repeat UA & Cx 02/28/18 due to nausea and malaise. * Culture with Enterococcus faecalis,and garcia-sensitive Escherichia coli. Catheter has been removed. Treated with nitrofurantoin 616 to 03/05/2018. * Normal UA 03/05/2018. Discontinued nitrofurantoin. * Continue cranberry supplement. Consider prophylactic antibiotic. Observe for symptoms with discontinuation of medications. * Positive UA on 03/07/2018 and treated with levofloxacin. Culture as of 2015 with lactose fermenting g negative rods. Most likely colonization rather than infection. Will discontinue levofloxacin starting 03/10/2018. Observe for symptoms consistent with UTI; otherwise will not check urinalysis or treat. Weight loss. Continue efforts per dietitian and continue to encourage oral nutrition. Hypertension. * Lisinopril was tapered from 20 mg to 5 mg q.day and metoprolol was discontinued because blood pressure was running low. Starting 02/27/2018, propranolol was initiated as a headache preventive. * Propranolol may be contributing to fatigue. Headaches have resolved. Discontinue propranolol. Restart lisinopril at 5 mg q.day. Tachycardia, 02/25/2018. Unclear etiology. Metoprolol was discontinued 2017 and tachycardia has developed since then. Continue to monitor. Hyponatremia and hypokalemia. Normal BMP 02/17/2018. * With no need for frequent blood draws or IV electrolyte replacement, discontinued PICC line, 02/17/2018. Anemia. Improving on CBC, 02/17/2018, and on CBC 03/01/2018. Seizure, early onset on the day of her injury. Continuing levetiracetam per Neurosurgery. Prophylaxis. Anticoagulation has been contraindicated in the setting of recent intracranial hemorrhages. Ambulation is improving and she has much lower risk of DVT than she did initially. Followup. Neurosurgeon Dr. Bryant, after discharge. DISPOSITION: Has good support from and other local family members. Continue discharge goal of 03/13/2018. Will have home PT OT and NON LICENSED OPERATOR. 03/09/18 10:44 Subjective: Complains of fatigue and feeling cold, and wants to stay in bed. She denies symptoms of UTI but reports that she has some perineal itching. She has some nausea. She reports that she ate well yesterday when she had casts through the day and with dinner. reports that she had increased perseveration and tremor when she was on methylphenidate, for 2 doses. Objective: Vital Signs Temp Pulse Resp BP Pulse Ox 36.5 C 78 16 116/69 98 03/09/18 08:00 03/09/18 08:00 03/09/18 08:00 03/09/18 08:00 03/09/18 08:00 Laboratory Results 03/05/18 11:58 03/01/18 07:52 03/08/18 03/09/18 03/10/18 05:59 05:59 05:59 Intake Total 2145 1820 Output Total 1150 1450 Balance 995 370 Physical Exam - Physical Exam General Appearance: WD/WN, alert, no apparent distress Respiratory: No respiratory distress, No accessory muscle use Skin: normal color, warm/dry Neuro/Psych: alert, normal mood/affect, other (Observed ambulating in physical therapy, in the figueroa with front wheeled walker narrow base of support and step through gait pattern. Observed ascending and descending 3 steps with 2 rails and contact guard assist per PT several times.) ICD10 Worksheet Patient Problems: Problems Problem Status Onset Fracture of occipital bone of skull with loss of consciousness Acute Grand mal seizure Acute Subdural hematoma Acute Syncope Acute Traumatic subarachnoid hemorrhage Acute
[2018-03-10] MEDS: LISINOPRIL 5 MG TAB PO SCH (07:21)
[2018-03-10] MEDS ORDERED: MODAFINIL 100 MG TAB PO SCH ×2 (09:00→12:14)
[2018-03-10] MEDS: RANITIDINE HCL 150 MG/10 ML UDCUP PO SCH ×2 (09:52→20:33)
[2018-03-10] MEDS: levETIRAcetam 500 MG TAB PO SCH ×2 (09:53→20:33)
[2018-03-10] MEDS: CHOLECALCIFEROL VIT D3 2,000 UNITS TAB/CAP PO SCH (09:53)
[2018-03-10] MEDS: levETIRAcetam 250 MG TAB PO SCH ×2 (09:54→20:33)
[2018-03-10] MEDS: CRANACTIN PO SCH ×3 (09:59→22:47)
[2018-03-10] MEDS: D MANNOSE PO SCH ×3 (09:59→22:47)
[2018-03-10] MEDS: ONDANSETRON DISINTEGRATING 4 MG TAB PO PRN ×2 (12:20→17:33)
--- NOTE | 2018-03-10 13:28 | SOAPPROG ---
SOAP Progress Note Assessment/Plan: Assessment: 72-year-old woman status post fall from planter bed onto her driveway, approximately 6-8 feet, on 02/02/2018, with subdural and intracranial hemorrhages , and status post occipital craniotomy 02/04/2018. Fell in the ICU on 02/11/2018 and suffered a scalp laceration with suturing. No subsequent change in head CT. Debility status post fall and intracranial hemorrhages. * Initial functional independence measure 35 on 02/20/2018, increased to 61 as of 02/27/2018; 63 as of 03/06/2018. Standby assist for mobility when she is more alert, contact guard assist if she is fatigued. Has ambulated greater than 150 ft with a front wheeled walker. Has climbed and descended 6 stairs with 2 rails. She needs minimal assist for descent. She has stood briefly to accomplished grooming and hygiene. Upper body dressing requires standby assist , lower body requires contact guard assist. Toileting and showering require standby assist to contact guard assist. * Therapies and nursing to work with to educated regarding care needs, and to allow patient to have more independence. She is beginning to ask for assistance more. * PT and OT to optimize mobility and ADLs toward the supervision level though she may continue to require assistance for bathing and dressing. 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 * Needing cues for attention, initiation and persistence. Able to do picture recognition and can read on analog clock. * Continue STEREOTYPE MOLDER. Dysphagia, advanced to DD3 diet on 02/27/2018. * Impaired attention, initiation and persistence affect swallowing function. * Continue STEREOTYPE MOLDER. Visual disturbance. * Diplopia with down gaze. OT using taping of glasses for left lower quadrant. Complicates mobility especially descending stairs. Nausea and malaise, fatigue, chills * These are now chronic issues for her. She has had head CTs x2, on 02/18/2018 and 03/07/2018, stable or improving. * TSH normal x2, 02/03/2018 and 03/03/2018. Methylphenidate may have caused perseveration. Amantadine was discontinued along with other medications in an attempt to relieve nausea. * Repeat CBC and UA today 03/05/2018 with slightly low white blood cell count and normal UA.. Laboratory studies again on 03/07/2016 with anemia resolved, normal white blood cells, normal renal function and electrolytes. Urinalysis with positive nitrite and leukocyte esterase and mildly increased white blood cells on micro but without specific symptoms and with no leukocytosis on CBC. Urine culture with ESBL Klebsiella resistant to all oral antibiotics; this is likely colonization than an infection. Will not attempt to treat. * Medication changes 03/05/2018: discontinued nitrofurantoin, bethanechol and tamsulosin. Improving. Weight loss. Continue efforts per dietitian and continue to encourage oral nutrition. * Trial of ondansetron prior to meals, beginning with dinner 03/10/2018. Fatigue * Trial of modafinil for fatigue, beginning 03/10/2018. * Appears more alert, 03/10/2018. Urinary retention. 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 * Failed voiding trial 02/17/2018. Zaragoza catheter replaced. * Repeat voiding trial 03/02 - 03/05/2018 unsuccessful. Discontinue bethanechol and tamsulosin 03/05/2018. Replace Zaragoza catheter 03/06/2018. * Will attempt a voiding trial once more before discharge, likely on 03/12/2018. * Urology evaluation after discharge if problem persists. Urinary tract infection. Has been treated with ciprofloxacin for 7 days, completed 02/18/2018. Repeat UA & Cx 02/28/18 due to nausea and malaise. * Culture with Enterococcus faecalis,and garcia-sensitive Escherichia coli. Catheter has been removed. Treated with nitrofurantoin 616 to 03/05/2018. * Normal UA 03/05/2018. Discontinued nitrofurantoin. * Continue cranberry supplement. Consider prophylactic antibiotic. Observe for symptoms with discontinuation of medications. * Positive UA on 03/07/2018 and treated with levofloxacin. Culture as of 2015 with lactose fermenting g negative rods. Most likely colonization rather than infection. Will discontinue levofloxacin starting 03/10/2018. Observe for symptoms consistent with UTI; otherwise will not check urinalysis or treat. Hypertension. * Lisinopril was tapered from 20 mg to 5 mg q.day and metoprolol was discontinued because blood pressure was running low. Starting 02/27/2018, propranolol was initiated as a headache preventive. * Propranolol may be contributing to fatigue. Headaches have resolved. Discontinue propranolol. Restart lisinopril at 5 mg q.day. Tachycardia, 02/25/2018. Unclear etiology. Metoprolol was discontinued 2017 and tachycardia has developed since then. Continue to monitor. Hyponatremia and hypokalemia. Normal BMP 02/17/2018. * With no need for frequent blood draws or IV electrolyte replacement, discontinued PICC line, 02/17/2018. Anemia. Improving on CBC, 02/17/2018, and on CBC 03/01/2018. Seizure, early onset on the day of her injury. Continuing levetiracetam per Neurosurgery. Prophylaxis. Anticoagulation has been contraindicated in the setting of recent intracranial hemorrhages. Ambulation is improving and she has much lower risk of DVT than she did initially. Followup. Neurosurgeon Dr. Bryant, after discharge. DISPOSITION: Has good support from and other local family members. Continue discharge goal of 03/13/2018. Will have home PT OT and STEREOTYPE MOLDER. 03/10/18 13:47 Subjective: No complaints. Feeling good when examined in room and reported that she felt hungry. However she subsequently took very little of her lunch meal, complaining of nausea. No constipation or diarrhea, bowel movements x2 today. Objective: Vital Signs Temp Pulse Resp BP Pulse Ox 37.0 C 87 16 111/65 95 03/10/18 06:39 03/10/18 06:39 03/10/18 06:39 03/10/18 07:21 03/10/18 06:39 Laboratory Results 03/05/18 11:58 03/01/18 07:52 03/09/18 03/10/18 03/11/18 05:59 05:59 05:59 Intake Total 1820 320 350 Output Total 1450 1450 Balance 370 -1130 350 Physical Exam - Physical Exam General Appearance: WD/WN, alert, no apparent distress Respiratory: No respiratory distress, No accessory muscle use Skin: normal color, warm/dry Neuro/Psych: no motor/sensory deficits, alert, normal mood/affect ICD10 Worksheet Patient Problems: Problems Problem Status Onset Fracture of occipital bone of skull with loss of consciousness Acute Grand mal seizure Acute Subdural hematoma Acute Syncope Acute Traumatic subarachnoid hemorrhage Acute
[2018-03-11] MEDS: MODAFINIL 100 MG TAB PO SCH (06:52)
[2018-03-11] MEDS: ONDANSETRON DISINTEGRATING 4 MG TAB PO PRN ×3 (07:54→20:43)
[2018-03-11] MEDS: CHOLECALCIFEROL VIT D3 2,000 UNITS TAB/CAP PO SCH ×2 (08:45→09:13)
[2018-03-11] MEDS: levETIRAcetam 500 MG TAB PO SCH (08:45)
[2018-03-11] MEDS: RANITIDINE HCL 150 MG/10 ML UDCUP PO SCH (08:45)
[2018-03-11] MEDS: LISINOPRIL 5 MG TAB PO SCH (08:46)
[2018-03-11] MEDS: levETIRAcetam 250 MG TAB PO SCH (08:47)
[2018-03-11] MEDS: D MANNOSE PO SCH ×2 (09:12→20:14)
[2018-03-11] MEDS: CRANACTIN PO SCH ×2 (09:12→20:14)
--- NOTE | 2018-03-11 10:12 | SOAPPROG ---
SOAP Progress Note Assessment/Plan: Assessment: 72-year-old woman status post fall from planter bed onto her driveway, approximately 6-8 feet, on 02/02/2018, with subdural and intracranial hemorrhages , and status post occipital craniotomy 02/04/2018. Fell in the ICU on 02/11/2018 and suffered a scalp laceration with suturing. No subsequent change in head CT. Debility status post fall and intracranial hemorrhages. * Initial functional independence measure 35 on 02/20/2018, increased to 61 as of 02/27/2018; 63 as of 03/06/2018; 76 as of 03/11/2018. Independent with bed mobility. Transfers with standby assist to contact guard assist. Ambulates with front wheeled walker or 4 wheeled walker with standby assist to contact guard assist. With no device she requires contact guard to minimal assist. Climbed and descended 12 stairs with contact guard to minimal assist. Grooming and hygiene with standby assist if seated and contact guard assist if standing. Upper body dressing with standby assist, lower body dressing with contact guard assist for balance. Bath transfer with contact guard assist. Bathing steps standby assist to supervision. Toileting requires minimal assist. * Therapies and nursing to work with to educated regarding care needs, and to allow patient to have more independence. * PT and OT to optimize mobility and ADLs toward the supervision level though she may continue to require assistance for bathing and dressing. 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 * Improved new learning, it interaction, verbal expansion. Continues to have executive function deficits with decreased initiation and decreased response inhibition. * Continue CAN OPERATOR. Dysphagia, advanced to DD3 diet on 02/27/2018; advanced to regular diet as of .. * Impaired attention, initiation and persistence affect swallowing function. * Continue CAN OPERATOR. Visual disturbance. * Diplopia with down gaze. OT using taping of glasses for left lower quadrant. Complicates mobility especially descending stairs. Nausea and malaise, fatigue. * These are now chronic issues for her. She has had head CTs x 2 while on the rehabilitation unit, on 02/18/2018 and 03/07/2018, improving. * TSH normal x2, 02/03/2018 and 03/03/2018. Methylphenidate may have caused perseveration. Amantadine was discontinued along with other medications in an attempt to relieve nausea. * Repeat CBC and UA 03/05/2018 with slightly low white blood cell count and normal UA.. Laboratory studies again on 03/07/2016 with anemia resolved, normal white blood cells, normal renal function and electrolytes. Urinalysis with positive nitrite and leukocyte esterase and mildly increased white blood cells on micro but without specific symptoms and with no leukocytosis on CBC. Urine culture with ESBL Klebsiella resistant to all oral antibiotics; this is likely colonization rather than an infection. Will not attempt to treat. * Medication changes 03/05/2018: discontinued nitrofurantoin, bethanechol and tamsulosin. Further reduction in pill burden 03/11/2018: discontinue ranitidine , which has not helped GI issues, and levetiracetam. Weight loss. Continue efforts per dietitian and continue to encourage oral nutrition. * Ondansetron prior to meals, beginning with dinner 03/10/2018. Fatigue * Trial of modafinil for fatigue, beginning 03/10/2018. * Improved alertness and other cognitive affects noted per CAN OPERATOR, 03/11/2018. Urinary retention. 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 * Failed voiding trial 02/17/2018. Zaragoza catheter replaced. * Repeat voiding trial 03/02 - 03/05/2018 unsuccessful. Discontinue bethanechol and tamsulosin 03/05/2018. Replace Zaragoza catheter 03/06/2018. * Will attempt a voiding trial once more before discharge, likely on 03/12/2018. * Urology evaluation after discharge if problem persists. Urinary tract infection. Has been treated with ciprofloxacin for 7 days, completed 02/18/2018. Repeat UA & Cx 02/28/18 due to nausea and malaise. * Culture with Enterococcus faecalis,and garcia-sensitive Escherichia coli. Catheter has been removed. Treated with nitrofurantoin 616 to 03/05/2018. * Normal UA 03/05/2018. Discontinued nitrofurantoin. * Continue cranberry supplement. Consider prophylactic antibiotic. Observe for symptoms with discontinuation of medications. * Positive UA on 03/07/2018 and treated with levofloxacin. Culture as of 2015 with lactose fermenting g negative rods. Most likely colonization rather than infection. Will discontinue levofloxacin starting 03/10/2018. Observe for symptoms consistent with UTI; otherwise will not check urinalysis or treat. Hypertension. * Lisinopril was tapered from 20 mg to 5 mg q.day and metoprolol was discontinued because blood pressure was running low. Starting 02/27/2018, propranolol was initiated as a headache preventive. * Propranolol may be contributing to fatigue. Headaches have resolved. Discontinue propranolol. Restart lisinopril at 5 mg q.day. Hyponatremia and hypokalemia. Normal BMP 02/17/2018. * With no need for frequent blood draws or IV electrolyte replacement, discontinued PICC line, 02/17/2018. Anemia. Improving on CBC, 02/17/2018, and on CBC 03/01/2018. Seizure, early onset on the day of her injury. * Discussed with neurosurgeon Dr. Bryant, 03/11/2018. Will discontinue levetiracetam 03/11/2018. Prophylaxis. Anticoagulation has been contraindicated in the setting of recent intracranial hemorrhages. Ambulation is improving and she has much lower risk of DVT than she did initially. Followup. Neurosurgeon Dr. Bryant, after discharge. DISPOSITION: Attended staffing, 15 min. Discussed with case management, nursing, dietitian, PT, OT, CAN OPERATOR. Attended family meeting, 30 min. Discussed need for structure and regular schedule. Will arrange training for caregivers. Has good support from and other local family members. Discharge plan for 03/17/2018. Will have home PT OT and CAN OPERATOR, and hired caregivers. 03/11/18 14:29 03/11/18 14:33 Subjective: Feels more alert today. P.o. Intake improved yesterday after use of ondansetron before meals. Complains of abdominal discomfort to the left of her stomach. Objective: Vital Signs Temp Pulse Resp BP Pulse Ox 36.6 C 83 17 114/65 94 03/11/18 07:11 03/11/18 07:11 03/11/18 07:11 03/11/18 08:46 03/11/18 07:11 Laboratory Results 03/05/18 11:58 03/01/18 07:52 03/10/18 03/11/18 03/12/18 05:59 05:59 05:59 Intake Total 320 820 570 Output Total 1450 2050 Balance -1130 -1238 570 - Time Spent With Patient Time Spent With Patient: Greater than 35 min floor time today, including more than 50% of time in coordination of care during staffing meeting and in phone conversation with neurosurgeon Dr. Bryant, and counseling patient and family at the bedside and during family meeting. Physical Exam - Physical Exam General Appearance: WD/WN, alert, no apparent distress Respiratory: No respiratory distress, No accessory muscle use Abdomen: normal bowel sounds, non-tender, soft, No distended Skin: normal color, warm/dry Neuro/Psych: alert, normal mood/affect ICD10 Worksheet Patient Problems: Problems Problem Status Onset Fracture of occipital bone of skull with loss of consciousness Acute Grand mal seizure Acute Subdural hematoma Acute Syncope Acute Traumatic subarachnoid hemorrhage Acute
[2018-03-11] MEDS: ONDANSETRON DISINTEGRATING 4 MG TAB PO SCH (16:32)
[2018-03-11] MEDS: MELATONIN 3 MG TAB PO PRN (20:04)
[2018-03-12] MEDS: ONDANSETRON DISINTEGRATING 4 MG TAB PO SCH ×3 (06:39→16:24)
[2018-03-12] MEDS: MODAFINIL 100 MG TAB PO SCH (06:39)
[2018-03-12] MEDS: CHOLECALCIFEROL VIT D3 2,000 UNITS TAB/CAP PO SCH (08:29)
[2018-03-12] MEDS: LISINOPRIL 5 MG TAB PO SCH (08:30)
[2018-03-12] MEDS: D MANNOSE PO SCH ×2 (08:31→20:43)
[2018-03-12] MEDS: CRANACTIN PO SCH ×2 (08:31→20:43)
--- NOTE | 2018-03-12 14:27 | SOAPPROG ---
SOAP Progress Note Assessment/Plan: Assessment: 72-year-old woman status post fall from planter bed onto her driveway, approximately 6-8 feet, on 02/02/2018, with subdural and intracranial hemorrhages , and status post occipital craniotomy 02/04/2018. Fell in the ICU on 02/11/2018 and suffered a scalp laceration with suturing. No subsequent change in head CT. Debility status post fall and intracranial hemorrhages. * Initial functional independence measure 35 on 02/20/2018, increased to 61 as of 02/27/2018; 63 as of 03/06/2018; 76 as of 03/11/2018. Independent with bed mobility. Transfers with standby assist to contact guard assist. Ambulates with front wheeled walker or 4 wheeled walker with standby assist to contact guard assist. With no device she requires contact guard to minimal assist. Climbed and descended 12 stairs with contact guard to minimal assist. Grooming and hygiene with standby assist if seated and contact guard assist if standing. Upper body dressing with standby assist, lower body dressing with contact guard assist for balance. Bath transfer with contact guard assist. Bathing steps standby assist to supervision. Toileting requires minimal assist. * Therapies and nursing to work with to educated regarding care needs, and to allow patient to have more independence. * PT and OT to optimize mobility and ADLs toward the supervision level though she may continue to require assistance for bathing and dressing. 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 * Improved new learning, it interaction, verbal expansion. Continues to have executive function deficits with decreased initiation and decreased response inhibition. * Continue INDIRECT FIRE INFANTRYMAN. Dysphagia, advanced to DD3 diet on 02/27/2018; advanced to regular diet as of .. * Impaired attention, initiation and persistence affect swallowing function. * Continue INDIRECT FIRE INFANTRYMAN. Visual disturbance. * Diplopia with down gaze. Nystagmus on right gaze. Vertiginous symptoms with left gaze. * Very complicated clinical scenario including possible concussive damage to the vestibular ocular reflex as well as effects of a cerebellar lobectomy. * Will initiate ocular vestibular rehabilitation per OT. * Doubt that there is a pharmacologic treatment without unacceptable side effects. * Follow-up with Neurology, Neuro-Ophthalmology, and possibly ENT, after discharge. Nausea and malaise, fatigue. * These are now chronic issues for her. She has had head CTs x 2 while on the rehabilitation unit, on 02/18/2018 and 03/07/2018, improving. * TSH normal x2, 02/03/2018 and 03/03/2018. Methylphenidate may have caused perseveration. Amantadine was discontinued along with other medications in an attempt to relieve nausea. * Repeat CBC and UA 03/05/2018 with slightly low white blood cell count and normal UA.. Laboratory studies again on 03/07/2016 with anemia resolved, normal white blood cells, normal renal function and electrolytes. CMP normal, 2017, except for reduced albumin. Lipase and fasting cortisol normal, 2017. Urinalysis with positive nitrite and leukocyte esterase and mildly increased white blood cells on micro but without specific symptoms and with no leukocytosis on CBC. Urine culture with ESBL Klebsiella resistant to all oral antibiotics; this is likely colonization rather than an infection. Will not attempt to treat. * Medication changes 03/05/2018: discontinued nitrofurantoin, bethanechol and tamsulosin. Further reduction in pill burden 03/11/2018: discontinue ranitidine , which has not helped GI issues, and levetiracetam. Weight loss. Continue efforts per dietitian and continue to encourage oral nutrition. * Ondansetron prior to meals, beginning with dinner 03/10/2018. Fatigue * Trial of modafinil for fatigue, beginning 03/10/2018. * Improved alertness and other cognitive affects noted per INDIRECT FIRE INFANTRYMAN, 03/11/2018. Urinary retention. 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 * Failed voiding trial 02/17/2018. Zaragoza catheter replaced. * Repeat voiding trial 03/02 - 03/05/2018 unsuccessful. Discontinue bethanechol and tamsulosin 03/05/2018. Replace Zaragoza catheter 03/06/2018. * Will attempt a voiding trial once more before discharge, likely on 03/12/2018. * Urology evaluation after discharge if problem persists. Urinary tract infection. Has been treated with ciprofloxacin for 7 days, completed 02/18/2018. Repeat UA & Cx 02/28/18 due to nausea and malaise. * Culture with Enterococcus faecalis,and garcia-sensitive Escherichia coli. Catheter has been removed. Treated with nitrofurantoin 616 to 03/05/2018. * Normal UA 03/05/2018. Discontinued nitrofurantoin. * Continue cranberry supplement. Consider prophylactic antibiotic. Observe for symptoms with discontinuation of medications. * Positive UA on 03/07/2018 and treated with levofloxacin. Culture as of 2015 with lactose fermenting g negative rods. Most likely colonization rather than infection. Will discontinue levofloxacin starting 03/10/2018. Observe for symptoms consistent with UTI; otherwise will not check urinalysis or treat. Hypertension. * Lisinopril was tapered from 20 mg to 5 mg q.day and metoprolol was discontinued because blood pressure was running low. Starting 02/27/2018, propranolol was initiated as a headache preventive. * Propranolol may be contributing to fatigue. Headaches have resolved. Discontinue propranolol. Restart lisinopril at 5 mg q.day. Hyponatremia and hypokalemia. Normal BMP 02/17/2018. * With no need for frequent blood draws or IV electrolyte replacement, discontinued PICC line, 02/17/2018. Anemia. Improving on CBC, 02/17/2018, and on CBC 03/01/2018. Seizure, early onset on the day of her injury. * Discussed with neurosurgeon Dr. Bryant, 03/11/2018. Will discontinue levetiracetam 03/11/2018. Prophylaxis. Anticoagulation has been contraindicated in the setting of recent intracranial hemorrhages. Ambulation is improving and she has much lower risk of DVT than she did initially. Followup. Neurosurgeon Dr. Bryant, after discharge. DISPOSITION: Family meeting 03/11/2018. Discussed need for structure and regular schedule. Will arrange training for caregivers. Has good support from and other local family members. Discharge plan for 03/17/2018. Will have home PT OT and INDIRECT FIRE INFANTRYMAN, and hired caregivers. 03/12/18 14:09 Subjective: Continues to have nausea, which interferes with taking nutrition. Reports dizziness with a sensation of spinning intermittently. He is worse with left gaze. She has some left lower abdominal discomfort as well. No fevers or chills, no cough or dyspnea. No constipation or diarrhea. She has not vomited though she has nausea. Objective: Vital Signs Temp Pulse Resp BP Pulse Ox 36.5 C 84 25 H 109/64 94 03/12/18 07:38 03/12/18 07:38 03/12/18 07:38 03/12/18 07:38 03/12/18 07:38 Laboratory Results 03/05/18 11:58 03/12/18 07:20 03/11/18 03/12/18 03/13/18 05:59 05:59 05:59 Intake Total 820 1170 732 Output Total 5395 1385 525 Balance -1230 -215 207 Physical Exam - Physical Exam General Appearance: WD/WN, alert, no apparent distress Respiratory: normal breath sounds, No crackles, No rhonchi, No wheezing Cardiac/Chest: regular rate, rhythm, No edema, No diastolic murmur, No systolic murmur Abdomen: normal bowel sounds, non-tender, soft, No distended Skin: normal color, warm/dry Neuro/Psych: alert, normal mood/affect, oriented x 3, other (Reduced upgaze. Nystagmus does not extinguish on right gaze; does extinguish on left gaze. Normal convergence, normal right and left gaze, normal down gaze.) ICD10 Worksheet Patient Problems: Problems Problem Status Onset Fracture of occipital bone of skull with loss of consciousness Acute Grand mal seizure Acute Subdural hematoma Acute Syncope Acute Traumatic subarachnoid hemorrhage Acute
[2018-03-12] MEDS: MELATONIN 3 MG TAB PO PRN (20:42)
[2018-03-12] MEDS: ONDANSETRON DISINTEGRATING 4 MG TAB PO PRN (22:05)
[2018-03-13] MEDS ORDERED: MECLIZINE HCL 12.5 MG TAB PO SCH (07:00)
[2018-03-13] MEDS: MECLIZINE HCL 25 MG TAB PO SCH (07:24)
[2018-03-13] MEDS: MODAFINIL 100 MG TAB PO SCH (07:24)
[2018-03-13] MEDS: ONDANSETRON DISINTEGRATING 4 MG TAB PO SCH ×3 (07:24→16:51)
[2018-03-13] MEDS: CHOLECALCIFEROL VIT D3 2,000 UNITS TAB/CAP PO SCH (09:17)
[2018-03-13] MEDS: D MANNOSE PO SCH ×2 (09:19→20:38)
[2018-03-13] MEDS: CRANACTIN PO SCH ×2 (09:19→20:38)
[2018-03-13] MEDS: LISINOPRIL 5 MG TAB PO SCH (09:19)
--- NOTE | 2018-03-13 12:08 | SOAPPROG ---
SOAP Progress Note Assessment/Plan: Assessment: 72-year-old woman status post fall from planter bed onto her driveway, approximately 6-8 feet, on 02/02/2018, with subdural and intracranial hemorrhages , and status post occipital craniotomy 02/04/2018. Fell in the ICU on 02/11/2018 and suffered a scalp laceration with suturing. No subsequent change in head CT. Debility status post fall and intracranial hemorrhages. * Initial functional independence measure 35 on 02/20/2018, increased to 61 as of 02/27/2018; 63 as of 03/06/2018; 76 as of 03/11/2018. Independent with bed mobility. Transfers with standby assist to contact guard assist. Ambulates with front wheeled walker or 4 wheeled walker with standby assist to contact guard assist. With no device she requires contact guard to minimal assist. Climbed and descended 12 stairs with contact guard to minimal assist. Grooming and hygiene with standby assist if seated and contact guard assist if standing. Upper body dressing with standby assist, lower body dressing with contact guard assist for balance. Bath transfer with contact guard assist. Bathing steps standby assist to supervision. Toileting requires minimal assist. * PT and OT to optimize mobility and ADLs toward the supervision level though she may continue to require assistance for bathing and dressing. Continue to schedule rest breaks. Therapy to work with patient regarding her stamina and endurance and maximize activities throughout the day. 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 * Improved new learning, interaction, verbal expansion. Continues to have executive function deficits with decreased initiation and decreased response inhibition. * Continue MONITOR AND STORAGE BIN TENDER. Dysphagia, advanced to DD3 diet on 02/27/2018; advanced to regular diet as of .. * Continue MONITOR AND STORAGE BIN TENDER. Visual disturbance. * Diplopia with down gaze. Nystagmus on right gaze. Vertiginous symptoms with left gaze. * Very complicated clinical scenario including possible concussive damage to the vestibular ocular reflex as well as effects of a cerebellar lobectomy. * Will initiate ocular vestibular rehabilitation per OT. * Doubt that there is a pharmacologic treatment without unacceptable side effects. * Follow-up with Neurology, Neuro-Ophthalmology, and possibly ENT, after discharge. Nausea and malaise, fatigue. * These are now chronic issues for her. She has had head CTs x 2 while on the rehabilitation unit, on 02/18/2018 and 03/07/2018, improving. * TSH normal x2, 02/03/2018 and 03/03/2018. Methylphenidate may have caused perseveration. Amantadine was discontinued along with other medications in an attempt to relieve nausea. * Repeat CBC and UA 03/05/2018 with slightly low white blood cell count and normal UA.. Laboratory studies again on 03/07/2016 with anemia resolved, normal white blood cells, normal renal function and electrolytes. CMP normal, 2017, except for reduced albumin. Lipase and fasting cortisol normal, 2017. Urinalysis with positive nitrite and leukocyte esterase and mildly increased white blood cells on micro but without specific symptoms and with no leukocytosis on CBC. Urine culture with ESBL Klebsiella resistant to all oral antibiotics; this is likely colonization rather than an infection. Will not attempt to treat. * Medication changes 03/05/2018: discontinued nitrofurantoin, bethanechol and tamsulosin. Further reduction in pill burden 03/11/2018: discontinue ranitidine , which has not helped GI issues, and levetiracetam. * Initiated meclizine 12.5 mg twice daily starting 03/13/2018. Appears to have had some improvement in nausea. Weight loss. Continue efforts per dietitian and continue to encourage oral nutrition. * Ondansetron prior to meals, beginning with dinner 03/10/2018. Fatigue * Trial of modafinil for fatigue, beginning 03/10/2018. * Improved alertness and other cognitive affects noted per MONITOR AND STORAGE BIN TENDER, 03/11/2018. Urinary retention. 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 * Failed voiding trial 02/17/2018. Zaragoza catheter replaced. * Repeat voiding trial 03/02 - 03/05/2018 unsuccessful. Discontinue bethanechol and tamsulosin 03/05/2018. Replace Zaragoza catheter 03/06/2018. * Will attempt a voiding trial once more before discharge, likely on 03/12/2018. * Urology evaluation after discharge if problem persists. Urinary tract infection. Has been treated with ciprofloxacin for 7 days, completed 02/18/2018. Repeat UA & Cx 02/28/18 due to nausea and malaise. * Culture with Enterococcus faecalis,and garcia-sensitive Escherichia coli. Catheter has been removed. Treated with nitrofurantoin 616 to 03/05/2018. * Normal UA 03/05/2018. Discontinued nitrofurantoin. * Continue cranberry supplement. Consider prophylactic antibiotic. Observe for symptoms with discontinuation of medications. * Positive UA on 03/07/2018 and treated with levofloxacin. Culture as of 2015 with lactose fermenting g negative rods. Most likely colonization rather than infection. Will discontinue levofloxacin starting 03/10/2018. Observe for symptoms consistent with UTI; otherwise will not check urinalysis or treat. Hypertension. * Lisinopril was tapered from 20 mg to 5 mg q.day and metoprolol was discontinued because blood pressure was running low. Starting 02/27/2018, propranolol was initiated as a headache preventive. * Propranolol may be contributing to fatigue. Headaches have resolved. Discontinue propranolol. Restart lisinopril at 5 mg q.day. Hyponatremia and hypokalemia. Normal BMP 02/17/2018. * With no need for frequent blood draws or IV electrolyte replacement, discontinued PICC line, 02/17/2018. Anemia. Improving on CBC, 02/17/2018, and on CBC 03/01/2018. Seizure, early onset on the day of her injury. * Discussed with neurosurgeon Dr. Bryant, 03/11/2018. Will discontinue levetiracetam 03/11/2018. Prophylaxis. Anticoagulation has been contraindicated in the setting of recent intracranial hemorrhages. Ambulation is improving and she has much lower risk of DVT than she did initially. Followup. Neurosurgeon Dr. Bryant, after discharge. DISPOSITION: Family meeting 03/11/2018. Discussed need for structure and regular schedule. Will arrange training for caregivers. Has good support from and other local family members. Discharge plan for 03/17/2018. Will have home PT OT and MONITOR AND STORAGE BIN TENDER, and hired caregivers. 03/13/18 11:52 Subjective: Reports nausea last night and vomited. Feels a little bit better this morning after morning dose of meclizine and was able to tolerate about half of her oatmeal. Subsequently did not want to participate in therapies. She feels that they are pushing or to hard and would prefer to rest in bed. Objective: Vital Signs Temp Pulse Resp BP Pulse Ox 36.4 C 84 16 110/67 95 03/13/18 07:10 03/13/18 07:10 03/13/18 07:10 03/13/18 07:10 03/13/18 07:10 Laboratory Results 03/05/18 11:58 03/12/18 07:20 03/12/18 03/13/18 03/14/18 05:59 05:59 05:59 Intake Total 1170 1219 Output Total 4634 8406 Balance -215 -124 - Time Spent With Patient Time Spent With Patient: Greater than 35 min floor time today including discussions with patient, and aids social worker regarding issues of stamina and endurance and compliance with therapies. Physical Exam - Physical Exam General Appearance: WD/WN, alert, no apparent distress, thin Respiratory: No respiratory distress, No accessory muscle use Skin: normal color, warm/dry Neuro/Psych: alert, normal mood/affect, oriented x 3, other (Observed ambulating in [place] with front wheeled walker, contact guard assist per , narrow base of support, moving slowly. Observed sitting at dining room table able to use both upper extremities in eating.) ICD10 Worksheet Patient Problems: Problems Problem Status Onset Multiple drug resistant organism (MDRO) culture positive Acute Fracture of occipital bone of skull with loss of consciousness Acute Grand mal seizure Acute Subdural hematoma Acute Syncope Acute Traumatic subarachnoid hemorrhage Acute
[2018-03-13] MEDS: MELATONIN 3 MG TAB PO PRN (20:37)
[2018-03-14] MEDS: MODAFINIL 100 MG TAB PO SCH (07:14)
[2018-03-14] MEDS: MECLIZINE HCL 25 MG TAB PO SCH (07:15)
[2018-03-14] MEDS: ONDANSETRON DISINTEGRATING 4 MG TAB PO SCH ×3 (07:15→18:13)
[2018-03-14] MEDS: POLYETHYLENE GLYCOL 3350 17 GM PKT PO PRN (08:49)
[2018-03-14] MEDS: LISINOPRIL 5 MG TAB PO SCH (08:49)
[2018-03-14] MEDS: D MANNOSE PO SCH ×2 (08:50→21:00)
[2018-03-14] MEDS: CRANACTIN PO SCH ×2 (08:50→21:00)
[2018-03-14] MEDS: CHOLECALCIFEROL VIT D3 2,000 UNITS TAB/CAP PO SCH (08:50)
--- NOTE | 2018-03-14 11:10 | SOAPPROG ---
SOAP Progress Note Assessment/Plan: Assessment: 72-year-old woman status post fall from planter bed onto her driveway, approximately 6-8 feet, on 02/02/2018, with subdural and intracranial hemorrhages , and status post occipital craniotomy 02/04/2018. Fell in the ICU on 02/11/2018 and suffered a scalp laceration with suturing. No subsequent change in head CT. Debility status post fall and intracranial hemorrhages. AT THIS RATE I AM NOT SURE SHE WOULD BE READY TO GO HOME ON FRIDAY IT IS MY OPINION THAT SHE MAY BE INCREASED FALL RISK DUE TO CURRENT LEVEL OF WEAKNESS AND FATIGUE. HOPEFULLY IF WE CAN GET HER NAUSEA UNDER CONTROL SHE CAN START EATING FEEL MORE COMFORTABLE PARTICIPATING IN THERAPIES. SHE CURRENTLY FEELS LIKE SHE IS OVERDOING IN THERAPY AND THIS IS CONTRIBUTING TO HER OVERALL MALAISE. * Initial functional independence measure 35 on 02/20/2018, increased to 61 as of 02/27/2018; 63 as of 03/06/2018; 76 as of 03/11/2018. Independent with bed mobility. Transfers with standby assist to contact guard assist. Ambulates with front wheeled walker or 4 wheeled walker with standby assist to contact guard assist. With no device she requires contact guard to minimal assist. Climbed and descended 12 stairs with contact guard to minimal assist. Grooming and hygiene with standby assist if seated and contact guard assist if standing. Upper body dressing with standby assist, lower body dressing with contact guard assist for balance. Bath transfer with contact guard assist. Bathing steps standby assist to supervision. Toileting requires minimal assist. * PT and OT to optimize mobility and ADLs toward the supervision level though she may continue to require assistance for bathing and dressing. Continue to schedule rest breaks. Therapy to work with patient regarding her stamina and endurance and maximize activities throughout the day. 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 * Improved new learning, interaction, verbal expansion. Continues to have executive function deficits with decreased initiation and decreased response inhibition. * Continue UNCRATER. Dysphagia, advanced to DD3 diet on 02/27/2018; advanced to regular diet as of .. * Continue UNCRATER. Visual disturbance. * Diplopia with down gaze. Nystagmus on right gaze. Vertiginous symptoms with left gaze. * Very complicated clinical scenario including possible concussive damage to the vestibular ocular reflex as well as effects of a cerebellar lobectomy. * Will initiate ocular vestibular rehabilitation per OT. * Doubt that there is a pharmacologic treatment without unacceptable side effects. * Follow-up with Neurology, Neuro-Ophthalmology, and possibly ENT, after discharge. Nausea and malaise, fatigue. NAUSEA CONTINUES TO BE HER MAIN COMPLAINT AND IT IS CONTRIBUTING TO HER LACK OF APPETITE. THIS IN COMBINATION WITH BED REST IS CONTRIBUTING TO FATIGUE. HAD LONG DISCUSSION WITH HER AND SON IN LAW WHO IS VISITING FROM [place] AND IS A HOSPITALIST. I WILL START PROTONIX 40 MG TODAY TO SEE IF THIS HELPS WITH THE NAUSEA. WILL CONSIDER INCREASING THE MECLIZINE TO 25 MG TWICE DAILY IN THE NEXT DAY OR SO. SHE MAY ALSO WANT TO TRY ACUPUNCTURE TO ADDRESS NAUSEA AND I WILL ASK NURSING TO HELP ARRANGE THIS. * These are now chronic issues for her. She has had head CTs x 2 while on the rehabilitation unit, on 02/18/2018 and 03/07/2018, improving. * TSH normal x2, 02/03/2018 and 03/03/2018. Methylphenidate may have caused perseveration. Amantadine was discontinued along with other medications in an attempt to relieve nausea. * Repeat CBC and UA 03/05/2018 with slightly low white blood cell count and normal UA.. Laboratory studies again on 03/07/2016 with anemia resolved, normal white blood cells, normal renal function and electrolytes. CMP normal, 2017, except for reduced albumin. Lipase and fasting cortisol normal, 2017. Urinalysis with positive nitrite and leukocyte esterase and mildly increased white blood cells on micro but without specific symptoms and with no leukocytosis on CBC. Urine culture with ESBL Klebsiella resistant to all oral antibiotics; this is likely colonization rather than an infection. Will not attempt to treat. * Medication changes 03/05/2018: discontinued nitrofurantoin, bethanechol and tamsulosin. Further reduction in pill burden 03/11/2018: discontinue ranitidine , which has not helped GI issues, and levetiracetam. * Initiated meclizine 12.5 mg twice daily starting 03/13/2018. Appears to have had some improvement in nausea. Weight loss. Continue efforts per dietitian and continue to encourage oral nutrition. * Ondansetron prior to meals, beginning with dinner 03/10/2018. Fatigue * Trial of modafinil for fatigue, beginning 03/10/2018. * Improved alertness and other cognitive affects noted per UNCRATER, 03/11/2018. Urinary retention. 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 THE JEFFRIES IS BACK IN. WILL TRY VOIDING TRIAL TOMORROW OR FRIDAY. * Failed voiding trial 02/17/2018. Jeffries catheter replaced. * Repeat voiding trial 03/02 - 03/05/2018 unsuccessful. Discontinue bethanechol and tamsulosin 03/05/2018. Replace Jeffries catheter 03/06/2018. * Will attempt a voiding trial once more before discharge, likely on 03/12/2018. * Urology evaluation after discharge if problem persists. Urinary tract infection. Has been treated with ciprofloxacin for 7 days, completed 02/18/2018. Repeat UA & Cx 02/28/18 due to nausea and malaise. * Culture with Enterococcus faecalis,and garcia-sensitive Escherichia coli. Catheter has been removed. Treated with nitrofurantoin 616 to 03/05/2018. * Normal UA 03/05/2018. Discontinued nitrofurantoin. * Continue cranberry supplement. Consider prophylactic antibiotic. Observe for symptoms with discontinuation of medications. * Positive UA on 03/07/2018 and treated with levofloxacin. Culture as of 2015 with lactose fermenting g negative rods. Most likely colonization rather than infection. Will discontinue levofloxacin starting 03/10/2018. Observe for symptoms consistent with UTI; otherwise will not check urinalysis or treat. Hypertension. * Lisinopril was tapered from 20 mg to 5 mg q.day and metoprolol was discontinued because blood pressure was running low. Starting 02/27/2018, propranolol was initiated as a headache preventive. * Propranolol may be contributing to fatigue. Headaches have resolved. Discontinue propranolol. Restart lisinopril at 5 mg q.day. Hyponatremia and hypokalemia. Normal BMP 02/17/2018. * With no need for frequent blood draws or IV electrolyte replacement, discontinued PICC line, 02/17/2018. Anemia. Improving on CBC, 02/17/2018, and on CBC 03/01/2018. Seizure, early onset on the day of her injury. * Discussed with neurosurgeon Dr. Bryant, 03/11/2018. Will discontinue levetiracetam 03/11/2018. Prophylaxis. Anticoagulation has been contraindicated in the setting of recent intracranial hemorrhages. Ambulation is improving and she has much lower risk of DVT than she did initially. Followup. Neurosurgeon Dr. Bryant, after discharge. Plan: 03/14/18 11:06 03/14/18 11:12 Subjective: Her main complaint this morning is nausea. She reports she has been nauseous for several days. She does not complain of significant dizziness and she does not relate the nausea to the dizziness. She does report some diplopia with downward gaze but she is unsure if she develops dizziness with this. She has not had a bowel movement for several days. She reports that she has a poor appetite. She was recently started on meclizine but she is not sure if this has been helping. Objective: Vital Signs Temp Pulse Resp BP Pulse Ox 36.4 C 81 16 115/70 95 03/14/18 06:22 03/14/18 06:22 03/14/18 06:22 03/14/18 06:22 03/14/18 06:22 Laboratory Results 03/05/18 11:58 03/12/18 07:20 03/13/18 03/14/18 03/15/18 05:59 05:59 05:59 Intake Total 1219 450 150 Output Total 1775 900 Balance -556 -450 150 Physical Exam - Physical Exam General Appearance: WD/WN, alert, mild distress, cachetic, other (She does not look like she feels well lying in bed.) Neck: non-tender Respiratory: lungs clear, normal breath sounds Cardiac/Chest: No edema Abdomen: normal bowel sounds, non-tender, soft Skin: normal color Extremities: No swelling ( positive dysmetria more pronounced on the left. Positive nystagmus.), No Cody's sign Neuro/Psych: motor weakness (Generalized weakness but 4/5 strength all 4 extremities.) ICD10 Worksheet Patient Problems: Problems Problem Status Onset Multiple drug resistant organism (MDRO) culture positive Acute Fracture of occipital bone of skull with loss of consciousness Acute Grand mal seizure Acute Subdural hematoma Acute Syncope Acute Traumatic subarachnoid hemorrhage Acute
[2018-03-14] MEDS: PANTOPRAZOLE SODIUM 40 MG TAB PO SCH (13:29)
[2018-03-14] MEDS: MELATONIN 3 MG TAB PO PRN (20:18)
[2018-03-14] MEDS: ONDANSETRON DISINTEGRATING 4 MG TAB PO PRN (20:20)
[2018-03-15] MEDS: ONDANSETRON DISINTEGRATING 4 MG TAB PO PRN (06:24)
[2018-03-15] MEDS: ONDANSETRON DISINTEGRATING 4 MG TAB PO SCH ×3 (07:43→17:03)
[2018-03-15] MEDS: PANTOPRAZOLE SODIUM 40 MG TAB PO SCH (07:58)
[2018-03-15] MEDS: CRANACTIN PO SCH ×2 (08:44→20:33)
[2018-03-15] MEDS: CHOLECALCIFEROL VIT D3 2,000 UNITS TAB/CAP PO SCH (08:44)
[2018-03-15] MEDS: D MANNOSE PO SCH ×2 (08:44→20:33)
[2018-03-15] MEDS: MECLIZINE HCL 25 MG TAB PO SCH (09:59)
[2018-03-15] MEDS: MODAFINIL 100 MG TAB PO SCH (10:00)
[2018-03-15] MEDS: LISINOPRIL 5 MG TAB PO SCH (10:00)
--- NOTE | 2018-03-15 11:07 | SOAPPROG ---
SOAP Progress Note Assessment/Plan: Assessment: 72-year-old woman status post fall from planter bed onto her driveway, approximately 6-8 feet, on 02/02/2018, with subdural and intracranial hemorrhages , and status post occipital craniotomy 02/04/2018. Fell in the ICU on 02/11/2018 and suffered a scalp laceration with suturing. No subsequent change in head CT. Debility status post fall and intracranial hemorrhages. SHE REPORTS THAT SHE WAS UNABLE TO PARTICIPATE IN THERAPIES YESTERDAY AND THIS MORNING DUE TO FEELING WEAK AND NAUSEOUS. ENCOURAGE PATIENT TO PARTICIPATE IN BEDSIDE PT AND OCCUPATIONAL THERAPY FOR AT LEAST 30 MIN TODAY AND TOMORROW. INFORM PATIENT AND FAMILY THAT EXTENDING HER STAY IN THE REHAB UNIT WILL BE MORE DIFFICULT IF SHE IS NOT PARTICIPATING IN HER THERAPIES. * Initial functional independence measure 35 on 02/20/2018, increased to 61 as of 02/27/2018; 63 as of 03/06/2018; 76 as of 03/11/2018. Independent with bed mobility. Transfers with standby assist to contact guard assist. Ambulates with front wheeled walker or 4 wheeled walker with standby assist to contact guard assist. With no device she requires contact guard to minimal assist. Climbed and descended 12 stairs with contact guard to minimal assist. Grooming and hygiene with standby assist if seated and contact guard assist if standing. Upper body dressing with standby assist, lower body dressing with contact guard assist for balance. Bath transfer with contact guard assist. Bathing steps standby assist to supervision. Toileting requires minimal assist. * PT and OT to optimize mobility and ADLs toward the supervision level though she may continue to require assistance for bathing and dressing. Continue to schedule rest breaks. Therapy to work with patient regarding her stamina and endurance and maximize activities throughout the day. DIZZINESS-CURRENTLY ON MECLIZINE 12.5 MG Q.DAY. BECAUSE WE ARE STARTING MIRTAZAPINE TODAY, WILL HOLD OFF ON INCREASING DOSE OF MECLIZINE. 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 * Improved new learning, interaction, verbal expansion. Continues to have executive function deficits with decreased initiation and decreased response inhibition. * Continue SLOPE HOIST OPERATOR. * DEPRESSED AFFECT-WILL PLACE NEUROPSYCH CONSULT TOMORROW MORNING Dysphagia, advanced to DD3 diet on 02/27/2018; advanced to regular diet as of .. * Continue SLOPE HOIST OPERATOR. Visual disturbance. * Diplopia with down gaze. Nystagmus on right gaze. Vertiginous symptoms with left gaze. * Very complicated clinical scenario including possible concussive damage to the vestibular ocular reflex as well as effects of a cerebellar lobectomy. * Will initiate ocular vestibular rehabilitation per OT. * Doubt that there is a pharmacologic treatment without unacceptable side effects. * Follow-up with Neurology, Neuro-Ophthalmology, and possibly ENT, after discharge. Nausea and malaise, fatigue. SHE FEELS SOMEWHAT LESS NAUSEOUS SINCE BEGINNING THE PROTONIX. NURSING HAS RELATED CONCERNS ABOUT HER POOR CALORIC INTAKE AND HAD A LONG DISCUSSION WITH THE PATIENT, HER HER DAUGHTER AND SON-IN-LAW WHO IS A HOSPITALIST SPECIALIZING IN PALLIATIVE CARE. TO ADDRESS POOR APPETITE , HE HAS RECOMMENDED DEXAMETHASONE 4 MG IN THE MORNING AND MIRTAZAPINE 7.5 MG AT NIGHT. HE REPORTS HE HAS USED THIS WITH FAIRLY GOOD SUCCESS AND THEREFORE WE CAN TRY THIS FOR A FEW DAYS TO SEE IF IT IMPROVES HER APPETITE. ALSO DISCUSSED WITH PATIENT AND FAMILY THAT THEY CAN BRING IN FOOD AND SHE CAN EAT WHATEVER SHE DESIRES BUT SHE HAS TO INCREASE HER P. O. INTAKE. WE WILL CONTINUE TO MONITOR DAILY CALORIC INTAKES. IF HER APPETITE DOES NOT IMPROVE WITH THE DEXAMETHASONE AND MIRTAZAPINE THEN WE MAY HAVE TO ADDRESS THE ISSUE OF TUBE FEEDS THROUGH A J-TUBE. THIS WILL BE DISCUSSED FURTHER EARLY IN THE NEXT DAY OR SO. * These are now chronic issues for her. She has had head CTs x 2 while on the rehabilitation unit, on 02/18/2018 and 03/07/2018, improving. * TSH normal x2, 02/03/2018 and 03/03/2018. Methylphenidate may have caused perseveration. Amantadine was discontinued along with other medications in an attempt to relieve nausea. * Repeat CBC and UA 03/05/2018 with slightly low white blood cell count and normal UA.. Laboratory studies again on 03/07/2016 with anemia resolved, normal white blood cells, normal renal function and electrolytes. CMP normal, 2017, except for reduced albumin. Lipase and fasting cortisol normal, 2017. Urinalysis with positive nitrite and leukocyte esterase and mildly increased white blood cells on micro but without specific symptoms and with no leukocytosis on CBC. Urine culture with ESBL Klebsiella resistant to all oral antibiotics; this is likely colonization rather than an infection. Will not attempt to treat. * Medication changes 03/05/2018: discontinued nitrofurantoin, bethanechol and tamsulosin. Further reduction in pill burden 03/11/2018: discontinue ranitidine , which has not helped GI issues, and levetiracetam. * Initiated meclizine 12.5 mg twice daily starting 03/13/2018. Appears to have had some improvement in nausea. Weight loss. Continue efforts per dietitian and continue to encourage oral nutrition. * Ondansetron prior to meals, beginning with dinner 03/10/2018. WILL CHECK PRE- ALBUMIN AND TOTAL PROTEIN LEVELS TODAY. Fatigue * Trial of modafinil for fatigue, beginning 03/10/2018. * Improved alertness and other cognitive affects noted per SLOPE HOIST OPERATOR, 03/11/2018. Urinary retention. 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 THE JEFFRIES IS BACK IN. WILL TRY VOIDING TRIAL TOMORROW OR FRIDAY. * Failed voiding trial 02/17/2018. Jeffries catheter replaced. * Repeat voiding trial 03/02 - 03/05/2018 unsuccessful. Discontinue bethanechol and tamsulosin 03/05/2018. Replace Jeffries catheter 03/06/2018. * Will attempt a voiding trial once more before discharge, likely on 03/12/2018. * Urology evaluation after discharge if problem persists. Urinary tract infection. Has been treated with ciprofloxacin for 7 days, completed 02/18/2018. Repeat UA & Cx 02/28/18 due to nausea and malaise. * Culture with Enterococcus faecalis,and garcia-sensitive Escherichia coli. Catheter has been removed. Treated with nitrofurantoin 616 to 03/05/2018. * Normal UA 03/05/2018. Discontinued nitrofurantoin. * Continue cranberry supplement. Consider prophylactic antibiotic. Observe for symptoms with discontinuation of medications. * Positive UA on 03/07/2018 and treated with levofloxacin. Culture as of 2015 with lactose fermenting g negative rods. Most likely colonization rather than infection. Will discontinue levofloxacin starting 03/10/2018. Observe for symptoms consistent with UTI; otherwise will not check urinalysis or treat. Hypertension. * Lisinopril was tapered from 20 mg to 5 mg q.day and metoprolol was discontinued because blood pressure was running low. Starting 02/27/2018, propranolol was initiated as a headache preventive. * Propranolol may be contributing to fatigue. Headaches have resolved. Discontinue propranolol. Restart lisinopril at 5 mg q.day. Hyponatremia and hypokalemia. Normal BMP 02/17/2018. * With no need for frequent blood draws or IV electrolyte replacement, discontinued PICC line, 02/17/2018. Anemia. Improving on CBC, 02/17/2018, and on CBC 03/01/2018. Seizure, early onset on the day of her injury. * Discussed with neurosurgeon Dr. Bryant, 03/11/2018. Will discontinue levetiracetam 03/11/2018. Prophylaxis. Anticoagulation has been contraindicated in the setting of recent intracranial hemorrhages. Ambulation is improving and she has much lower risk of DVT than she did initially. Followup. Neurosurgeon Dr. Bryant, after discharge. Plan: 03/14/18 11:06 03/14/18 11:12 03/15/18 11:10 Subjective: She feels somewhat less nauseous this morning since beginning the Protonix yesterday. She does note that she still does feel somewhat a little more dizzy then she conveyed yesterday. He thinks this may occur more when she looks to the left. Nursing reports concerns of her overall poor appetite consuming very little yesterday. Nursing also reports patient refusing to participate in therapies yesterday and this morning due to nausea and generally feeling of malaise. Objective: Vital Signs Temp Pulse Resp BP Pulse Ox 36.6 C 93 16 117/63 94 03/15/18 08:00 03/15/18 08:00 03/15/18 08:00 03/15/18 08:00 03/15/18 08:00 Laboratory Results 03/05/18 11:58 03/12/18 07:20 03/14/18 03/15/18 03/16/18 05:59 05:59 05:59 Intake Total 450 150 Output Total 900 600 125 Balance -450 -450 -125 Physical Exam - Physical Exam General Appearance: alert, cachetic EENT: other (Oral mucosa dry) Respiratory: chest non-tender, lungs clear Cardiac/Chest: No edema Abdomen: non-tender, soft, other (Hypoactive bowel sounds), No normal bowel sounds Skin: normal color ICD10 Worksheet Patient Problems: Problems Problem Status Onset Multiple drug resistant organism (MDRO) culture positive Acute Fracture of occipital bone of skull with loss of consciousness Acute Grand mal seizure Acute Subdural hematoma Acute Syncope Acute Traumatic subarachnoid hemorrhage Acute
[2018-03-15] MEDS: BISACODYL 10 MG SUPP PR PRN (11:14)
[2018-03-15] MEDS: DEXAMETHASONE 4 MG TAB PO SCH (11:14)
[2018-03-15] MEDS: MIRTAZAPINE 15 MG TAB PO SCH (20:25)
[2018-03-16] MEDS: MECLIZINE HCL 25 MG TAB PO SCH (06:39)
[2018-03-16] MEDS: MODAFINIL 100 MG TAB PO SCH (06:39)
[2018-03-16] MEDS: ONDANSETRON DISINTEGRATING 4 MG TAB PO SCH ×3 (06:39→16:53)
[2018-03-16] MEDS: PANTOPRAZOLE SODIUM 40 MG TAB PO SCH (09:46)
[2018-03-16] MEDS: LISINOPRIL 5 MG TAB PO SCH (09:46)
[2018-03-16] MEDS: CHOLECALCIFEROL VIT D3 2,000 UNITS TAB/CAP PO SCH (09:46)
[2018-03-16] MEDS: DEXAMETHASONE 4 MG TAB PO SCH (09:46)
[2018-03-16] MEDS: CRANACTIN PO SCH ×2 (09:47→20:33)
[2018-03-16] MEDS: D MANNOSE PO SCH ×2 (09:47→20:33)
--- NOTE | 2018-03-16 13:42 | SOAPPROG ---
SOAP Progress Note Assessment/Plan: Assessment: 72-year-old woman status post fall from planter bed onto her driveway, approximately 6-8 feet, on 02/02/2018, with subdural and intracranial hemorrhages , and status post occipital craniotomy 02/04/2018. Fell in the ICU on 02/11/2018 and suffered a scalp laceration with suturing. No subsequent change in head CT. Debility status post fall and intracranial hemorrhages. She has plateaued in physical therapy. She has refused therapies over the weekend. She is standby to contact guard assist and has delayed balance reactions. * Per team meeting today, both PT and OT feel that patient has plateaued and can now achieve same progress as an outpatient. She will receive physical, occupational and speech therapies at home. DIZZINESS-no complaints of dizziness today. CURRENTLY ON MECLIZINE 12.5 MG BID.. She is being discharged tomorrow and will write Rx to continue meclizine. 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 * Improved new learning, interaction, verbal expansion. Continues to have executive function deficits with decreased initiation and decreased response inhibition. * Continue ONLINE CONTENT COORDINATOR. * DEPRESSED AFFECT-WILL PLACE NEUROPSYCH CONSULT TOMORROW MORNING Dysphagia, advanced to DD3 diet on 02/27/2018; advanced to regular diet as of .. * Continue ONLINE CONTENT COORDINATOR. Visual disturbance. * Diplopia with down gaze. Nystagmus on right gaze. Vertiginous symptoms with left gaze. * Very complicated clinical scenario including possible concussive damage to the vestibular ocular reflex as well as effects of a cerebellar lobectomy. * Will initiate ocular vestibular rehabilitation per OT. * Doubt that there is a pharmacologic treatment without unacceptable side effects. * Follow-up with Neurology, Neuro-Ophthalmology, and possibly ENT, after discharge. Nausea-no complaints of nausea this morning. Started on dexamethasone 4 mg q.a.m. Along with mirtazapine 7.5 at night. Will write the scripts as discharge medication. Continue dexamethasone 4 mg for 1 week, then decrease to 2 mg on the 2nd week. Weight loss. Continue efforts per dietitian and continue to encourage oral nutrition. * Ondansetron prior to meals, beginning with dinner 03/10/2018. Total protein 6.1, pre-albumin 27.5 Fatigue * Trial of modafinil for fatigue, beginning 03/10/2018. * Improved alertness and other cognitive affects noted per ONLINE CONTENT COORDINATOR, 03/11/2018. Urinary retention. 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 THE JEFFRIES IS BACK IN. WILL TRY VOIDING TRIAL today.. * Failed voiding trial 02/17/2018. Jeffries catheter replaced. * Repeat voiding trial 03/02 - 03/05/2018 unsuccessful. Discontinue bethanechol and tamsulosin 03/05/2018. Replace Jeffries catheter 03/06/2018. * Will attempt a voiding trial once more before discharge, likely on 03/12/2018. * Urology evaluation after discharge if problem persists. Urinary tract infection. Has been treated with ciprofloxacin for 7 days, completed 02/18/2018. Repeat UA & Cx 02/28/18 due to nausea and malaise. * Culture with Enterococcus faecalis,and garcia-sensitive Escherichia coli. Catheter has been removed. Treated with nitrofurantoin 616 to 03/05/2018. * Normal UA 03/05/2018. Discontinued nitrofurantoin. * Continue cranberry supplement. Consider prophylactic antibiotic. Observe for symptoms with discontinuation of medications. * Positive UA on 03/07/2018 and treated with levofloxacin. Culture as of 2015 with lactose fermenting g negative rods. Most likely colonization rather than infection. Will discontinue levofloxacin starting 03/10/2018. Observe for symptoms consistent with UTI; otherwise will not check urinalysis or treat. Hypertension. * Lisinopril was tapered from 20 mg to 5 mg q.day and metoprolol was discontinued because blood pressure was running low. Starting 02/27/2018, propranolol was initiated as a headache preventive. * Propranolol may be contributing to fatigue. Headaches have resolved. Discontinue propranolol. Restart lisinopril at 5 mg q.day. Hyponatremia and hypokalemia. Normal BMP 02/17/2018. * With no need for frequent blood draws or IV electrolyte replacement, discontinued PICC line, 02/17/2018. Anemia. Improving on CBC, 02/17/2018, and on CBC 03/01/2018. Seizure, early onset on the day of her injury. * Discussed with neurosurgeon Dr. Bryant, 03/11/2018. Will discontinue levetiracetam 03/11/2018. Prophylaxis. Anticoagulation has been contraindicated in the setting of recent intracranial hemorrhages. Ambulation is improving and she has much lower risk of DVT than she did initially. Followup. Neurosurgeon Dr. Bryant, after discharge. Plan: 03/14/18 11:06 03/14/18 11:12 03/15/18 11:10 03/16/18 13:30 Subjective: She does not complain of nausea this morning. She managed to eat a banana without much difficulty. She has not had any further episodes of emesis. She received a suppository yesterday and had a fairly large bowel movement. She denies abdominal pain or cramping. No reports of bright red blood per rectum. No suprapubic pain. Objective: Vital Signs Temp Pulse Resp BP Pulse Ox 36.4 C 79 16 115/73 98 03/16/18 06:46 03/16/18 06:46 03/16/18 06:46 03/16/18 06:46 03/16/18 06:46 Laboratory Results 03/05/18 11:58 03/12/18 07:20 03/15/18 03/16/18 03/17/18 05:59 05:59 05:59 Intake Total 150 200 150 Output Total 600 425 250 Balance -450 -225 -100 Physical Exam - Physical Exam General Appearance: alert, no apparent distress, cachetic Respiratory: chest non-tender, lungs clear Abdomen: normal bowel sounds, non-tender, soft, No distended, No guarding, No rebound, No bruit Skin: warm/dry Extremities: No swelling, No Cody's sign ICD10 Worksheet Patient Problems: Problems Problem Status Onset Multiple drug resistant organism (MDRO) culture positive Acute Fracture of occipital bone of skull with loss of consciousness Acute Grand mal seizure Acute Subdural hematoma Acute Syncope Acute Traumatic subarachnoid hemorrhage Acute
[2018-03-16] MEDS: MIRTAZAPINE 15 MG TAB PO SCH (20:32)
[2018-03-17] MEDS: ONDANSETRON DISINTEGRATING 4 MG TAB PO SCH ×2 (07:09→12:16)
[2018-03-17] MEDS: MODAFINIL 100 MG TAB PO SCH (07:09)
[2018-03-17] MEDS: MECLIZINE HCL 25 MG TAB PO SCH (07:09)
[2018-03-17] MEDS: CHOLECALCIFEROL VIT D3 2,000 UNITS TAB/CAP PO SCH (08:10)
[2018-03-17] MEDS: DEXAMETHASONE 4 MG TAB PO SCH (08:10)
[2018-03-17] MEDS: PANTOPRAZOLE SODIUM 40 MG TAB PO SCH (08:15)
[2018-03-17] MEDS: LISINOPRIL 5 MG TAB PO SCH (08:20)
[2018-03-17] MEDS: CRANACTIN PO SCH (08:54)
[2018-03-17] MEDS: D MANNOSE PO SCH (08:54)
--- NOTE | 2018-03-17 10:54 | PDOREHIP ---
Admission [facility] - Admission - 3 Day Assessment Period Admission Date/Day 1: 02/16/18 Day 2: 02/17/18 Day 3: 02/18/18 Discharge [facility] - Discharge - 3 Day Assessment Period 2 Days Prior to Anticipated Discharge Date: 03/15/18 1 Day Prior to Anticipated Discharge Date: 03/16/18 Anticipated Discharge Date: 03/17/18 - Discharge Skin Conditions Unhealed Pressure Ulcer (1 or more/Stage 1 or >)-Discharge: 0. No
[2018-03-17 13:47] VITALS: BP 108/69
--- NOTE | 2018-03-17 18:44 | GDS ---
[f rep st] DISCHARGE SUMMARY ADMITTING DIAGNOSES: Traumatic brain injury, status post craniectomy and evacuation of hemorrhage plus cerebellar lobectomy. DISCHARGE DIAGNOSES: Traumatic brain injury, status post craniectomy and evacuation of hemorrhage plus cerebellar lobectomy. OTHER DISCHARGE DIAGNOSES: 1. Nausea. 2. Vertigo. 3. Diplopia. 4. Weight loss. 5. Fatigue. 6. Urinary retention. 7. Hypertension. CONSULTATIONS: There were none. PROCEDURES: She had several repeat head CTs, which showed improving, resolving hemorrhages. These were done on 02/18/2018 and 03/07/2018. COMPLICATIONS: Other than as described in additional diagnoses, there were no other complications. HISTORY AND HOSPITAL COURSE: This patient came to [facility] inpatient rehabilitation from [facility]. She had initially presented there on 02/02/2018. She had fallen backwards off a planter approximately [address] and landed on the back of her head. This resulted in subdural hematomas and intraparenchymal hemorrhage. There was a seizure in the emergency department, and she subsequently underwent surgery with occipital craniectomy and evacuation of blood and a cerebellar lobectomy on 02/04/2018. She eventually stabilized and was appropriate for inpatient rehabilitation. Brain scanning showed intraparenchymal hemorrhage in the right posterior cerebellum and in the left temporal and left frontal lobes. She had gradual improvement in therapies. Initial functional independence measure was 35 on 02/20/2018, which is consistent with [facility] care and needing considerable assistance with all aspects of mobility and activities of daily living. Alertness was an issue, as was visual disturbance and willingness to keep her eyes open to participate in therapy. She had steady improvement, and by 03/11/2018, her functional independence measure had improved to 76. This is getting close to assisted living level of care. At that time, she was independent with bed mobility. She needed standby assist to contact guard assist for transfers. She ambulated with a front-wheeled walker or a 4-wheeled walker with standby assist to contact guard assist. She had climbed and descended 12 stairs with contact guard to minimal assist. She needed standby assist for grooming and hygiene or contact guard assist if she did standing. Upper body dressing was accomplished with standby assist and lower body with contact guard assist just for balance. She continued to require minimal assist for toileting. Regarding cognitive impairment, she emerged from post-traumatic amnesia on 03/03. She continued to improve cognitively with improved new learning, verbal interaction, and verbal expansion. She continued to have executive function deficits with decreased initiation and decreased response inhibition. Family was advised to continue planning and scheduling her day for her. She had persistent nausea and weight loss as she was unwilling to eat given how she felt. There were extensive evaluations done, including head CTs x2. TSH was normal. She was treated for a urinary tract infection, but this did not affect her nausea, as well as malaise and fatigue. She had anemia, which resolved. Renal and liver functions were normal, except for reduced albumin. Lipase was normal. Fasting cortisol was normal. She had multiple medication changes, including discontinuation of medications to reduce her pill burden. She had been placed on nitrofurantoin for her urinary tract infection. She was on bethanechol and tamsulosin for urinary retention. She had been placed on ranitidine to attempt to improve her nausea. These were stopped, and levetiracetam was stopped. She was scheduled on ondansetron before meals. Subsequently, meclizine was added. With all of these changes, she continued to have nausea and malaise. It was thought to be possibly related to damage to the vestibular ocular reflex versus effects of a cerebellar lobectomy. Ultimately, she was started on dexamethasone during the day and mirtazapine at bedtime and finally had improvement in her nausea. 24-hour p.o. intake terminating in the morning of discharge was 790 cc. Previous 4 days, it had ranged from 150-487, so there was improvement, and her weight increased from 50.9 kg on 03/15/2018 to 51.4 kg on 03/18/2018. Urinary retention: She failed several voiding trials. 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 Catheter was removed finally 1 more time on the day of discharge, and she was noted to have a large void with a postvoid residual of 127. It is still not clear whether her urinary retention is resolved. She will have a followup with Urology. Urinary tract infection: She had treatment in her hospitalization, which was completed on 02/18/2018 with ciprofloxacin. She had nausea and malaise, and a repeat UA on 02/28/2018, she cultured Enterococcus faecalis and pansensitive Escherichia coli. She was treated with nitrofurantoin. This did not improve her symptoms of nausea and malaise. She had a normal urinalysis on 03/05/2018. She had a repeat urinalysis on 03/07/2018, which ultimately grew extended spectrum beta lactamase producing Klebsiella, for which she required contact isolation per hospital policy. Again, she was not symptomatic, and antibiotics were discontinued. This was considered a colonization rather than an infection. She had hypertension and was initially on 20 mg of lisinopril. This was decreased to 5 mg per day. She had been on metoprolol, which was also discontinued as her blood pressure was consistently running low. On the day of discharge, her blood pressure was 108/69. CONDITION ON DISCHARGE: Good. ACTIVITY: Ad one[place], but she needs supervision to contact guard assist for mobility-related activities of daily living, and she needs her family to manage her planning and scheduling tasks. DIET: Regular. DISCHARGE MEDICATIONS: 1. Acetaminophen 650 mg p.o. q.4 hours p.r.n. 2. Dexamethasone 4 mg p.o. daily x7 days and then 2 mg daily x4 days. 3. Lisinopril 5 mg p.o. daily. 4. Meclizine 12.5 mg p.o. daily. 5. Melatonin 3 mg p.o. q.h.s. p.r.n. 6. Metoprolol 12.5 mg p.o. b.i.d. 7. Modafinil 100 mg p.o. daily. 8. Ondansetron 4 mg p.o. q.4 hours p.r.n. 9. Oxycodone 2.5 mg p.o. q.4 hours p.r.n. 10. Pantoprazole 40 mg p.o. daily. She can experiment with discontinuing meclizine, pantoprazole, and ondansetron in the hope that her nausea does not recur as dexamethasone is tapered and discontinued. FOLLOWUP: 1. She will continue to have home health, PT, OT and [employer]. She can follow up with primary care provider, as well as with biscuitware brusher, Dr. Linda, regarding how she is doing. 2. Nausea. Extensive discussion as above. It is hoped that this will ultimately resolve. 3. Diplopia with down gaze and ocular vestibular abnormalities. She will see neuro-sales professional, Dr. Lupillo Ferreira. 4. Urinary retention, may be resolving. She has followup with urologist, Dr. Tiara Petersen, on 03/26/2018. 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 5. Traumatic brain injury, status post craniectomy. She will follow up with neurosurgeon, Dr. Jer Bryant, on 04/09/2018. 6. Functional status, status post brain injury. She will follow up with Dr. Sona Linda on the day of discharge, 03/17/2018. Greater than 30 min were spent on this discharge, including medication reconciliation and coordination of care. /[id number]/MODL MTDD
[2018-03-23] MEDS ORDERED: DEXAMETHASONE 2 MG TAB PO SCH ×2 (09:00)
== END 2018-03-17 14:49 | disposition home health service (06) | DRG 949 ==
LOC: BREH 14:52
PROVIDERS: ADMIT Internal Medicine; ATTEND Internal Medicine
DX: Z48.811 Encounter for surgical aftercare following surgery on the nervous system (principal); S06.5X1D Traumatic subdural hemorrhage with loss of consciousness of 30 minutes or less, subsequent encounter; S06.371A Contusion, laceration, and hemorrhage of cerebellum with loss of consciousness of 30 minutes or less, initial encounter; S02.11GD Other fracture of occiput, right side, subsequent encounter for fracture with routine healing; W17.89XD Other fall from one level to another, subsequent encounter; Y92.017 Garden or yard in single-family (private) house as the place of occurrence of the external cause; Y93.H2 Activity, gardening and landscaping; Y99.8 Other external cause status; R41.841 Cognitive communication deficit; H53.8 Other visual disturbances; D64.89 Other specified anemias; E87.1 Hypo-osmolality and hyponatremia; E87.6 Hypokalemia; N39.0 Urinary tract infection, site not specified; Z87.440 Personal history of urinary (tract) infections; R33.9 Retention of urine, unspecified; Z91.81 History of falling; I27.20 Pulmonary hypertension, unspecified; M81.0 Age-related osteoporosis without current pathological fracture; Z87.311 Personal history of (healed) other pathological fracture; I10 Essential (primary) hypertension; Z23 Encounter for immunization
CPT/HCPCS: 84134-90; 92507-GN; 92523-GN; 92526-GN; 92610-GN; 97110-GO; 97110-GP; 97112-GP; 97116-GP; 97162-GP; 97167-GO; 97530-GO; 97530-GP; 97535-GO; 99366-GN; 99366-GO; 99368-GP; G0009; G0515-GO

== ENCOUNTER 2018-03-07 20:34 | Emergency (ER) | payer OTHER, MEDICARE ==
[2018-03-07 20:44] VITALS: BP 117/77
--- NOTE | 2018-03-07 20:53 | EDPHY ---
General Time Seen by Provider: 03/07/18 20:49 Narrative: CHIEF COMPLAINT: "cold, nauseated" HISTORY OF PRESENT ILLNESS: Patient presents by EMS and is seen at time arrival. Patient's spouse report that she has been feeling cold, nauseated, perseverating, not eating, difficulty urinating. She has had the symptoms for "quite a while,"with some worsened over the past 2 days. Symptoms very day today. She has also "not been acting right" per spouse. No chest pain. No cough. No fever. She reportedly was tachypneic by EMS she has no new trauma or injury, but did suffer significant head injury on February 02 with multiple intracranial bleeds. She was treated with a tracheostomy craniotomy and has been and inpatient rehab since February 16. No predictable modifying factors. No other associated complaints or modifying factors at this time REVIEW OF SYSTEMS: Ten systems reviewed and are negative unless otherwise noted in the HPI PCP: Dr. Collazo PAST MEDICAL HISTORY: Osteoporosis, skull fracture, intracranial hemorrhages PAST SURGICAL HISTORY: Craniotomy, orthopedic surgeries, cerebellar lobectomy SOCIAL HISTORY: Nonsmoker. Currently in inpatient rehabilitation at [address] [place] [id number] FAMILY HISTORY: Noncontributory EXAMINATION General Appearance: Alert, no distress. Well-developed well-nourished. Head: normocephalic, atraumatic Eyes: Wearing an eye patch on both eyes. Pupils equal and round, no conjunctival pallor or injection. Tracking symmetrically without any nystagmus or dysconjugate gaze. ENT, Mouth: Mucous membranes moist Neck: Normal inspection, supple, non-tender. No meningismus or rigidity Respiratory: Lungs are clear to auscultation Cardiovascular: Regular rate and rhythm Gastrointestinal: Abdomen is soft and nontender Back: non-tender, no bony abnormalities Neurological: GCS 15. A&O, nonfocal, strength is symmetric in all 4 limbs. No pronator drift. Skin: Warm and dry, no rash no petechiae or purpura Extremities: Nontender, no pedal edema Psychiatric: Mood and affect normal DIFFERENTIAL DIAGNOSES: Including but not limited to intracranial hemorrhage, cerebral edema, encephalopathy, sepsis, pneumonia, UTI, dehydration MDM: 8:40 p.m. Complaints of headache, nausea, feeling cold and hot. No focal systematic complaints. Vital signs are within normal limits. She has normal neuro examination by me at this time. I have ordered CT scan of the head given her recent history of head trauma with surgical intervention. She is not meet any SIRS criteria. I will discuss with Dr. Hedrick. 9:30 p.m. Case discussed with radiologist, CT scan reveals chronic changes without any acute findings. Laboratory studies thus far are within normal limits. Urinalysis is pending. I re-evaluated the patient she has no change in her symptoms. Her vital signs remained well within normal limits, and she still does not meet any SIRS criteria 10:20 p.m. Patient re-evaluated. She does have evidence of mild urinary tract infection. She does have a catheter placed since yesterday and has had multiple straight cath procedures performed over the past week. I have ordered IV Levaquin based on her previous cultures, and based on intolerance of p. O. Antibiotics 10:30 p.m. I discussed case with the on-call physician for inpatient rehabilitation. We discussed patient's CT I had negative workup here. He states that he is happy to continue the treatment for urinary tract infection there and that we may leave the IV in place. IV antibiotics were ordered primarily because the patient does not tolerate p.o. Antibiotics due to abdominal discomfort. At this time the patient's spouse are asking to return back to inpatient rehabilitation. I do feel this is reasonable and she is stable for discharge at this time. SUPERVISION: Patient was independently examined, but I discussed the case with my secondary supervising physician Dr. Hedrick - Diagnostics Imaging Results: Imaging Impressions Head CT 03/07/18 20:41 Impression: 1. Continued improvement in multifocal hemorrhages with no new hemorrhage identified. 2. Decreased attenuation of a left frontoparietal subdural hematoma, measuring approximately 6 mm with no significant residual midline shift. Findings discussed with Babatunde Corley PA-C on March 07, 2018 at 21:05 hours. - History Smoking Status: Never smoked - Objective Vital Signs: Initial Vital Signs Temperature (C) 98.1 F 03/07/18 20:40 Heart Rate 92 03/07/18 20:40 Respiratory Rate 16 03/07/18 20:40 Blood Pressure 117/77 03/07/18 20:40 O2 Sat (%) 98 03/07/18 20:40 O2 Delivery Mode Room Air Allergies/Adverse Reactions: Sulfa (Sulfonamide Antibiotics) Allergy (Verified 02/02/18 10:46) Home Medications: Medication Instructions Recorded D-Mannose W/ Cranactin 1 each PO BID 02/15/18 Acetaminophen [Tylenol 325mg (*)] 650 mg PO Q4HRS PRN tab 02/16/18 Acetaminophen [Tylenol Rectal] 650 mg IA Q4 PRN supp 02/16/18 Ciprofloxacin [Cipro] 250 mg PO BID@1000,2000 tab 02/16/18 Melatonin [Melatonin 3 MG (*)] 3 mg PO HS PRN tab 02/16/18 Metoprolol Tartrate [Lopressor 25 12.5 mg PO BID tab 02/16/18 mg (*)] oxyCODONE IR [Oxycodone Ir (*)] 2.5 mg PO Q4HRS PRN tab 02/16/18 U.T.I. Drops 2 drops PO QID 03/03/18 Laboratory Results: Laboratory Results 03/07/18 20:45 03/07/18 20:45 03/07/18 03/07/18 03/07/18 21:30 21:30 20:50 WBC RBC Hgb Hct MCV MCH MCHC RDW Plt Count MPV Neut % (Auto) Lymph % (Auto) Dunn % (Auto) Eos % (Auto) Baso % (Auto) Nucleat RBC Rel Count Absolute Neuts (auto) Absolute Lymphs (auto) Absolute Monos (auto) Absolute Eos (auto) Absolute Basos (auto) Absolute Nucleated RBC Immature Gran % Immature Gran # PT INR APTT VBG Lactic Acid 1.8 mmol/L mmol/L (0.7-2.1) Sodium Potassium Chloride Carbon Dioxide Anion Gap BUN Creatinine Estimated GFR Glucose Calcium Total Bilirubin Urine Color YELLOW Urine Appearance HAZY Urine pH 6.0 (5.0-7.5) Ur Specific [place] 1.006 (1.002-1.030) Urine Protein NEGATIVE (NEGATIVE) Urine Ketones NEGATIVE (NEGATIVE) Urine Blood 1+ H (NEGATIVE) Urine Nitrate POSITIVE H (NEGATIVE) Urine Bilirubin NEGATIVE (NEGATIVE) Urine Urobilinogen NEGATIVE EU EU (0.2-1.0) Ur Leukocyte Esterase 3+ H (NEGATIVE) Urine RBC Cancelled 1-3 /hpf /hpf (0-3) Urine WBC Cancelled 25-50 /hpf H /hpf (0-3) Ur Epithelial Cells Cancelled TRACE /lpf /lpf (NONE-1+) Ur Renal Epithelial Cell Cancelled Urine Crystals Cancelled Ammonium Urate Crystals Cancelled Calcium Carbonate Cryst Cancelled Calcium Phosphate Cryst Cancelled Calcium Oxalate Crystal Cancelled Leucine Crystals Cancelled Cystine Crystals Cancelled Uric Acid Crystals Cancelled Triple Phos Crystals Cancelled Sulfonamide Crystals Cancelled Cholesterol Crystals Cancelled Tyrosine Crystals Cancelled Bilirubin Crystals Cancelled Amorphous Sediment Cancelled Urine Bacteria Cancelled 1+ /hpf H /hpf (NONE SEEN) Epithelial Casts Cancelled Fatty Casts Cancelled Hyaline Casts Cancelled Granular Casts Cancelled Waxy Casts Cancelled Broad Casts Cancelled RBC Casts Cancelled WBC Casts Cancelled Urine Mucus Cancelled TRACE /lpf /lpf (NONE-1+) Urine Trichomonas Cancelled Urine Yeast Cancelled Urine Sperm Cancelled Ur Oval Fat Bodies Cancelled Ur Free Fat Droplets Cancelled Urine Glucose NEGATIVE (NEGATIVE) Urine Comment Cancelled 03/07/18 03/07/18 03/07/18 20:45 20:45 20:45 WBC 4.63 10^3/uL 10^3/uL (3.80-9.50) RBC 4.37 10^6/uL 10^6/uL (4.18-5.33) Hgb 13.2 g/dL g/dL (12.6-16.3) Hct 40.9 % % (38.0-47.0) MCV 93.6 fL fL (81.5-99.8) MCH 30.2 pg pg (27.9-34.1) MCHC 32.3 g/dL L g/dL (32.4-36.7) RDW 14.3 % % (11.5-15.2) Plt Count 253 10^3/uL 10^3/uL (150-400) MPV 10.3 fL fL (8.7-11.7) Neut % (Auto) 56.5 % % (39.3-74.2) Lymph % (Auto) 31.3 % % (15.0-45.0) Dunn % (Auto) 11.0 % % (4.5-13.0) Eos % (Auto) 0.6 % % (0.6-7.6) Baso % (Auto) 0.4 % % (0.3-1.7) Nucleat RBC Rel Count 0.0 % % (0.0-0.2) Absolute Neuts (auto) 2.61 10^3/uL 10^3/uL (1.70-6.50) Absolute Lymphs (auto) 1.45 10^3/uL 10^3/uL (1.00-3.00) Absolute Monos (auto) 0.51 10^3/uL 10^3/uL (0.30-0.80) Absolute Eos (auto) 0.03 10^3/uL 10^3/uL (0.03-0.40) Absolute Basos (auto) 0.02 10^3/uL 10^3/uL (0.02-0.10) Absolute Nucleated RBC 0.00 10^3/uL 10^3/uL (0-0.01) Immature Gran % 0.2 % % (0.0-1.1) Immature Gran # 0.01 10^3/uL 10^3/uL (0.00-0.10) PT 13.2 SEC SEC (12.0-15.0) INR 0.98 (0.83-1.16) APTT 24.2 SEC SEC (23.0-38.0) VBG Lactic Acid Sodium 139 mEq/L mEq/L (135-145) Potassium 3.9 mEq/L mEq/L (3.3-5.0) Chloride 104 mEq/L mEq/L (97-110) Carbon Dioxide 23 mEq/l mEq/l (22-31) Anion Gap 12 mEq/L mEq/L (8-16) BUN 9 mg/dL mg/dL (7-23) Creatinine 0.5 mg/dL L mg/dL (0.6-1.0) Estimated GFR > 60 Glucose 97 mg/dL mg/dL (70-100) Calcium 9.3 mg/dL mg/dL (8.5-10.4) Total Bilirubin 0.6 mg/dL mg/dL (0.1-1.4) Urine Color Urine Appearance Urine pH Ur Specific [place] Urine Protein Urine Ketones Urine Blood Urine Nitrate Urine Bilirubin Urine Urobilinogen Ur Leukocyte Esterase Urine RBC Urine WBC Ur Epithelial Cells Ur Renal Epithelial Cell Urine Crystals Ammonium Urate Crystals Calcium Carbonate Cryst Calcium Phosphate Cryst Calcium Oxalate Crystal Leucine Crystals Cystine Crystals Uric Acid Crystals Triple Phos Crystals Sulfonamide Crystals Cholesterol Crystals Tyrosine Crystals Bilirubin Crystals Amorphous Sediment Urine Bacteria Epithelial Casts Fatty Casts Hyaline Casts Granular Casts Waxy Casts Broad Casts RBC Casts WBC Casts Urine Mucus Urine Trichomonas Urine Yeast Urine Sperm Ur Oval Fat Bodies Ur Free Fat Droplets Urine Glucose Urine Comment Medications Given: Discontinued Medications Sodium Chloride (Ns) 1,000 mls @ 0 mls/hr IV EDNOW ONE; Wide Open PRN Reason: Protocol Stop: 03/07/18 21:22 Last Admin: 03/07/18 22:00 Dose: 1,000 mls Departure - Departure Disposition: Home, Routine, Self-Care Clinical Impression: Catheter-associated urinary tract infection Qualifiers: Indwelling urinary catheter type: indwelling urethral catheter Encounter type: initial encounter Qualified Code(s): T83.511A - Infection and inflammatory reaction due to indwelling urethral catheter, initial encounter Condition: Good Instructions: [facility] Patient Education, Infection Prevention, Urinary Tract Infection in Women (ED) Additional Instructions: 1. You have a urinary tract infection will need antibiotics once daily for this. First dose was given here in the emergency department 2. Follow up with primary care physician for worsening symptoms 3. Follow up with neurosurgeon Number for ED precautions as discussed Referrals: Volodymyr Collazo MD [Medical Doctor] - As per Instructions Jer Bryant MD [Medical Doctor] - As per Instructions
[2018-03-07 20:57] LABS: PLATELET COUNT 253 10^3/uL (150-400)
[2018-03-07 21:07] LABS: INR 0.98 (0.83-1.16); PROTIME(PATIENT) 13.2 SEC (12.0-15.0)
[2018-03-07] MEDS ORDERED: NS 1,000 ML IV ONE (21:21)
[2018-03-07] MEDS ORDERED: OXYCODONE/APAP 5/325 TAB ONE (23:08)
[2018-03-07] MEDS ORDERED: OXYCODONE/APAP 5/325 TAB PO ONE (23:11)
== END 2018-03-07 23:37 | disposition home or self-care (01) ==
LOC: EDUNIT#
DX: T83.511A Infection and inflammatory reaction due to indwelling urethral catheter, initial encounter (principal); Y73.2 Prosthetic and other implants, materials and accessory gastroenterology and urology devices associated with adverse incidents
CPT/HCPCS: 70450; 96374; 99285; J1956